=== PATIENT | female | born 1945 | race Caucasian/White ===

== ENCOUNTER 2025-01-23 03:29 | Inpatient (IN) | payer OTHER, SELFPAY ==
[2025-01-22 18:46] VITALS: BP 98/67
[2025-01-22 19:04] LABS: Hematocrit 43.0 % (37.0-47.0); Hemoglobin 14.6 g/dL (12.0-16.0); Mean Corp Hgb Conc. 34.0 g/dL (33.0-37.0); Mean Corpuscular Volume 88.5 fL (81.0-99.0); Nucleated Red Blood Cells % 0 %; Platelet Count 275 10^3/uL (130-400); Red Cell Dist. Width 12.6 % (11.5-14.5)
[2025-01-22 19:20] LABS: ALT (SGPT) 22 U/L (0-35); AST (SGOT) 30 U/L (14-36); Albumin 3.5 g/dl (3.5-5.0); Alkaline Phosphatase 85 U/L (38-126); Blood Urea Nitrogen 21 mg/dl (7-17); Calcium 8.6 mg/dl (8.4-10.2); Carbon Dioxide 22 mmol/L (22-30); Chloride 102 mmol/L (98-107); Glucose 134 mg/dl (70-99); Lipase 27 U/L (23-300); Potassium 3.8 mmol/L (3.5-5.1); Sodium 134 mmol/L (135-145); Total Protein 6.5 g/dl (6.3-8.2); eGFR > 60.00
[2025-01-22 21:11] VITALS: BP 104/77
--- NOTE | 2025-01-22 21:23 | ED.GENMED ---
History of Present Illness
General
Chief Complaint: Abdominal Pain
Source: patient and family
Time Seen by Provider: 01/22/25 21:13
History of Present Illness
History of Present Illness:
This patient is an 79-year-old female who states that she has not had a bowel movement in about a week. On Sunday she started to feel slightly nauseous and 'flulike' associated with fever and headache. Those flulike symptoms have since resolved
but the nausea continues. Yesterday she started to develop pain, gradual onset, across her lower abdomen described as 'gas pains'. This has gotten progressively worse which prompted her visit here. She now has nonbloody vomiting associated with
the nausea. There are no exacerbating relieving factors to the pain. She denies urinary symptoms, bleeding, headache, dizziness. She states she has intermittent central chest discomfort, mild in intensity, since yesterday and then returning again
today. She says she is unaware how long it lasts for at a time because she so distracted with the abdominal pain. She denies associated dyspnea, diaphoresis, neck pain, shoulder pain, upper back pain.
Past History
Past History
ED Past Medical History: Other (Reflux, thyroid, hypercholesterolemia)
ED Past Surgical History: None
Social History
Tobacco: Non-smoker
Alcohol: None
Drug: None
Personal:
Living: with family
Phy Exam
Physical Exam
Physical Exam:
GENERAL: Alert , appears uncomfortable
EYE: pupils equal and reactive
NECK: Supple, no significant adenopathy.
ENT: o/p clr, mm dry
CARDIAC: Regular rate and rhythm .
LUNGS: Clear breath sounds bilaterally, no acute respiratory distress, no wheezes/rales/rhonchi
ABDOMEN: Soft, without focal tenderness, no r/g, no cvat
NEUROLOGICAL: Alert and oriented, no focal neuro deficits
SKIN: Warm and dry, skin intact.
MUSCULOSKELETAL: No edema, well perfused.
PSYCH: Normal and appropriate interaction.
Course
Orders/Labs/Results
Orders:
Orders
01/22/25 18:57
CMP [Comprehensive Metabolic Panel] Urgent
Complete Blood Count/With Diff Urgent
Lipase Urgent
01/22/25 21:21
Electrocardiogram (*1) Urgent
Reason for Study: Chest Pain
EKG- Treatment ONCE
01/22/25 21:22
0.9% Sodium Chloride 1000 ml [Nss] 1,000 ml IV BOLUS
Morphine Sulfate 4 mg IV NOW STA
01/22/25 21:23
CT Abd/Pel (IV only)-[facility] only Urgent
Comment:
Reason For Exam: diffuse lower abd pain, constipation, n.v
01/22/25 21:28
Prochlorperazine [Compazine] 5 mg IV NOW STA
01/22/25 22:19
Pantoprazole 80 mg/100 ml Nss [Protonix] 80 mg in 100 ml IV NOW
Pantoprazole [Protonix IV] 80 mg IV NOW STA
01/22/25 22:20
Type+Screen Urgent
01/22/25 22:44
Morphine Sulfate 4 mg IV NOW STA
01/22/25 23:28
0.9% Sodium Chloride 1000 ml [Nss] 1,000 ml IV BOLUS
01/22/25 23:29
Ampicillin/Sulbactam 3 G [Unasyn] 3 gm 0.9% Sodium Chloride 100 ml [Nss] 100 ml IV NOW
01/22/25 23:42
D-Dimer Urgent
Lactic Acid Urgent
Urinalysis Reflex To Culture Urgent
Date Specimen was Collected: 01/22/25
Time Specimen was Collected: 19:02
Urine Microscopic Reflex Cult Urgent
Urine Culture Urgent
IFEOMA Source: U
Specimen Description:
Date Specimen was Collected: 01/22/25
Time Specimen was Collected: 19:02
01/23/25
Ct Cta A/P W/Wo Urgent
Reason For Exam: pain
01/23/25 00:39
Ampicillin/Sulbactam 3 G [Unasyn] 3 gm 0.9% Sodium Chloride 100 ml [Nss] 100 ml IV NOW
Abnormal Lab Results
01/22/25 01/22/25
18:57 23:42
WBC 16.6 H 10^3/uL
(4.8-10.8)
Abs Immat Gran (auto) 0.1 H 10^3/uL
(0-0.05)
Absolute Neuts (auto) 14.3 H 10^3/uL
(1.4-6.5)
Absolute Lymphs (auto) 0.8 L 10^3/uL
(1.2-3.4)
Absolute Monos (auto) 1.3 H 10^3/uL
(0.1-0.6)
Immature Gran % 0.8 H %
(0-0.5)
Neutrophils % 86.2 H %
(42.2-75.2)
Lymphocytes % 4.8 L %
(20.5-51.1)
D-Dimer 15.87 H ug/mlFEU
(0.00-0.50)
Sodium 134 L mmol/L
(135-145)
BUN 21 H mg/dl
(7-17)
Glucose 134 H mg/dl
(70-99)
Lactic Acid 2.8 H mmol/L
(0.7-2.0)
Total Bilirubin 2.4 H mg/dl
(0.2-1.3)
Urine Ketones 3+ A
(Negative)
Ur Occult Blood Reflex 1+ A
(Negative)
Leukocyte Esterase Rfl 2+ A
(Negative)
Urine WBC (Reflex) 16-20 A /HPF
(0-5)
Urine Yeast Few A
(Negative)
Urine Albumin (Reflex) 2+ A
(Neg - Trace)
01/22/25 18:57
01/22/25 18:57
Vital Signs
Initial and Last Documented VS:
Initial Vital Signs
Temp Pulse Resp BP Pulse Ox
98.3 F 76 20 98/67 98
01/22/25 18:46 01/22/25 18:46 01/22/25 18:46 01/22/25 18:46 01/22/25 18:46
Last Documented Vital Signs
Temp Pulse Resp BP Pulse Ox
98.3 F 96 18 117/75 93
01/22/25 18:46 01/23/25 00:45 01/23/25 00:45 01/23/25 00:00 01/23/25 00:30
*Pulse Oximetry
SaO2: 98
Oxygen Mode of Delivery: Room air
Patient hypoxic: no
*Critical Care Note
Total Time (30-74mins, 75-104mins- exclusive of procedures): 35
Update Note
Update Note:
Patient presents to the Emergency Department with __abdominal pain, nausea, vomiting, constipation
Number and Complexity of Problems Addressed at the Encounter
� Chronic conditions affecting care:
� Acute Exacerbation and/or Progression of Chronic Illness:
� Differential Diagnosis includes: But not limited to appendicitis, diverticulitis, bowel obstruction, gastroenteritis, kidney stone, etc. etc.
Amount and/or Complexity of Data to be Reviewed and Analyzed
� I performed an independent evaluation of and my interpretation is:
EKG:
CT:There is moderate to severe wall thickening involving proximal to mid jejunal small bowel loops in the left upper quadrant. There is also significant stranding of the mesentery adjacent to the small bowel loops with fluid
within the mesentery. There is a striking demarcation of decreased enhancement of jejunal loops at the junction with the fourth portion of the duodenum, seen on coronal images 25 through 28 of series 202.
In the distal jejunum and proximal to mid ileum, small bowel loops appear relatively normal with no significant wall thickening or adjacent edema. There is moderate to severe wall thickening with adjacent edema involving the distal ileum including
the terminal ileum, and this probably involves approximately the distal 25 cm of the ileum.
These findings would suggest two discontinuous regions of significant enteritis. Infectious enteritis could be one consideration. Another consideration would be ischemic enteritis. I cannot identify a focal area of arterial embolism or mesenteric
venous thrombosis within the main branches of the SMA or SMV. Relatively diminished enhancement of distal mesenteric veins supplying these loops of small bowel, and small vessel mesenteric venous thrombosis could be considered.
There is a small to moderate amount of free fluid within the pelvis, greater in the right anterior pelvis adjacent to the distal ileum.
There is no free intraperitoneal air.
There is also a moderate amount of free fluid adjacent to the liver in the right upper quadrant. Minimal amount of free fluid adjacent to the spleen in the left upper quadrant. There is a moderate hiatal hernia which extends into the left lower
hemithorax. There is moderate fluid surrounding this hiatal hernia, and the surrounding fluid is probably extending superiorly from the abdomen through the hiatal hernia defect. There is compressive atelectasis within the visualized left lower lobe
of the lung. No significant pleural effusion bilaterally. Mild dependent atelectasis within the right lower lung.
Additionally, within the central and right paramedian pelvis, there is a short segment of sigmoid colonic wall thickening with stranding of the adjacent fat, in the region of multiple diverticula. This is probably a short segment of sigmoid
diverticulitis, with no evidence for an adjacent abscess.
Multiple calcified gallstones are present. No CT evidence to suggest acute cholecystitis. No evidence of biliary ductal dilation.
1 cm cyst within the medial right lobe of the liver. 3 mm cyst within the inferolateral right lobe of the liver. The main portal vein is patent as well as its branches. The SMV and the splenic vein appear patent.
Spleen appears normal.
Both adrenal glands appear within normal limits.
No focal abnormality of the pancreas.
No significant abnormality of the kidneys. The visualized pelvicalyceal systems and ureters appear within normal limits.
The urinary bladder appears normal.
1 cm calcification off of the right lateral margin of the uterus, most likely a small calcified fibroid. No other abnormality of the uterus. The ovaries appear within normal limits.
Moderate vascular calcification with no aortic aneurysm. Mild to moderate narrowing at the origin of the celiac artery. Suggestion of moderate narrowing at the origin of the SMA.
Minimal levoconvex scoliosis centered at L4-5 with mild dextroconvex scoliosis centered at L1-2. Mild to moderate diffuse changes of degenerative disc disease with vacuum disc phenomenon at L3-4. No evidence for spondylolisthesis. Bilateral mid to
lower lumbar hypertrophic facet degenerative change. Mild degenerative change of both hip joints. Mild to moderate degenerative change of the symphysis pubis.
IMPRESSION: As described above, 2 discontinuous areas of enteritis involving the small bowel, with involvement of the proximal to mid jejunum in the left upper quadrant and involvement of the distal ileum in the right lower quadrant. There is
significant stranding and edema within the adjacent mesentery of these involve loops of bowel. Free fluid within the abdomen and pelvis. See above discussion.
No evidence of free intraperitoneal air.
Short segment of diverticulitis involving the sigmoid colon within the central and right paramedian pelvis. No evidence for associated abscess.
Moderate hiatal hernia with surrounding fluid in the left hemithorax, fluid likely extending superiorly through the hiatal hernia defect.
Cholelithiasis. No CT findings to suggest acute cholecystitis. No evidence of biliary ductal dilation.
Electronically signed by Cristofer Gamino MD, 01/22/2025 11:15 PM
Xrays:
Laboratory Studies: Leukocytosis, lactic acid elevation, mild prerenal azotemia. D-dimer elevation EXTR nonspecific
Other:
� Review of other/old records reveals:
� Clinical information was obtained by an independent historian: and daughter who provide additional history including her PMH
� Prescriptions/Medications Considered but not given:
� Further testing considered but not performed:
Risk of Complications and/or Morbidity or Mortality of Patient Management
� Social determinants of health affecting care:
� Discussion with other providers (PCP, Hospitalists, Consultants, etc): See below
� Escalation of care including admission/observation vs risk of discharge considered: On exam, although patient has abdominal pain, she does not describe tenderness with palpation, says it feels 'pressure' with palpation but not
discomfort necessarily. Fluids, pain meds, and testing ordered, will reassess shortly
11:27 PM patient much more comfortable, systolic blood pressure low 100s, no further vomiting. RN will draw lactic and D-dimer at this time. CT not definitive for ischemic etiology and patient does not have any identifiable risk factors but still
a possibility. Will begin antibiotics, IV fluid, and consideration for further testing
In regards to antibiotics, patient describes a penicillin allergy from 'a long long time ago' described as 'just a rash'. I am avoiding Levaquin given patient's prolonged QT. RN aware of need for close monitoring after administering,
Case discussed with radiology, questioning if a angiogram would be helpful. Case then discussed with general surgery, Dr. Weathers, and we proceeded with a CT angiogram. Results in summary Summary: 'mesenteric arteries grossly patent, cannot assess
venous patency. Mesenteric edema and stranding again seen, may be infectious/inflam or ischemic. Mod free fluid.' Reassessment, pt markedly improved, resting comfortably, no complnts. hr wnl. Will admit, npo, ivf, continue abx, close monioring.
Case d/w Dr Sanchez for admission.
ED Attending Note
-
Portions of this chart may have been created with voice recognition software.� Occasional wrong word or��sound alike� substitutions may have occurred due to the inherent limitations of voice recognition software.
Discharge Plan
Departure
Referrals:
Howard Peoples MD [Family Provider, Internal Medicine]
Interventions
Interventions:
*Risk Screen - Suicide Last Done: 01/22/25 18:46
*General Assessment Last Done: 01/22/25 18:46
*Neglect/Abuse Screening Last Done: 01/22/25 21:34
*ED- Fall Risk Assessment Last Done: 01/22/25 21:34
*ED COVID-19 Vaccine History Last Done: 01/22/25 18:46
*ED Influenza Vaccine History Last Done: 01/22/25 18:46
Discharge Date and Time
Print Language: IRISH
[2025-01-22] MEDS: MORPHINE SULFATE 4 MG IV ×2 (21:25→23:20)
[2025-01-22] MEDS: NSS 1000 IV (21:26)
[2025-01-22] MEDS: COMPAZINE 5 MG IV (21:43)
[2025-01-22 22:00] VITALS: BP 120/70
[2025-01-22 22:41] VITALS: BP 129/71
[2025-01-22 23:00] VITALS: BP 98/46
[2025-01-22] MEDS: PROTONIX IV 80 MG IV (23:19)
[2025-01-22] MEDS: PROTONIX 100 IV (23:19)
[2025-01-22 23:26] VITALS: BP 102/69
[2025-01-22 23:50] LABS: Urine Character Clear (Clear)
[2025-01-23] VITALS (7 sets, daily range): BP systolic 97–125; BP diastolic 63–75; PULSE 88–125; BMI 29.6
[2025-01-23 00:16] LABS: D-Dimer 15.87 ug/mlFEU (0.00-0.50)
[2025-01-23 00:28] LABS: Urine Squamous Cell 16-20 /LPF (Few)
[2025-01-23 00:30] LABS: Urine Red Blood Cell 0-2 /HPF (0-2); Urine White Cell 16-20 /HPF (0-5)
[2025-01-23] MEDS: UNASYN IV (00:47)
[2025-01-23] MEDS: NSS 1000 IV (00:51)
--- NOTE | 2025-01-23 02:04 | ED.GENMED ---
History of Present Illness
General
Chief Complaint: Abdominal Pain
Time Seen by Provider: 01/22/25 21:13
Past History
Past History
ED Past Medical History: Other (Reflux, thyroid, hypercholesterolemia)
ED Past Surgical History: None
Social History
Tobacco: Non-smoker
Alcohol: None
Drug: None
Personal:
Living: with family
Course
Orders/Labs/Results
Orders:
Orders
01/22/25 18:57
CMP [Comprehensive Metabolic Panel] Urgent
Complete Blood Count/With Diff Urgent
Lipase Urgent
01/22/25 21:21
Electrocardiogram (*1) Urgent
Reason for Study: Chest Pain
EKG- Treatment ONCE
01/22/25 21:22
0.9% Sodium Chloride 1000 ml [Nss] 1,000 ml IV BOLUS
Morphine Sulfate 4 mg IV NOW STA
01/22/25 21:23
CT Abd/Pel (IV only)-[facility] only Urgent
Comment:
Reason For Exam: diffuse lower abd pain, constipation, n.v
01/22/25 21:28
Prochlorperazine [Compazine] 5 mg IV NOW STA
01/22/25 22:19
Pantoprazole 80 mg/100 ml Nss [Protonix] 80 mg in 100 ml IV NOW
Pantoprazole [Protonix IV] 80 mg IV NOW STA
01/22/25 22:20
Type+Screen Urgent
01/22/25 22:44
Morphine Sulfate 4 mg IV NOW STA
01/22/25 23:28
0.9% Sodium Chloride 1000 ml [Nss] 1,000 ml IV BOLUS
01/22/25 23:29
Ampicillin/Sulbactam 3 G [Unasyn] 3 gm 0.9% Sodium Chloride 100 ml [Nss] 100 ml IV NOW
01/22/25 23:42
D-Dimer Urgent
Lactic Acid Urgent
Urinalysis Reflex To Culture Urgent
Date Specimen was Collected: 01/22/25
Time Specimen was Collected: 19:02
Urine Microscopic Reflex Cult Urgent
Urine Culture Urgent
IFEOMA Source: U
Specimen Description:
Date Specimen was Collected: 01/22/25
Time Specimen was Collected: 19:02
01/23/25
Ct Cta A/P W/Wo Urgent
Reason For Exam: pain
01/23/25 00:39
Ampicillin/Sulbactam 3 G [Unasyn] 3 gm 0.9% Sodium Chloride 100 ml [Nss] 100 ml IV NOW
Abnormal Lab Results
01/22/25 01/22/25
18:57 23:42
WBC 16.6 H 10^3/uL
(4.8-10.8)
Abs Immat Gran (auto) 0.1 H 10^3/uL
(0-0.05)
Absolute Neuts (auto) 14.3 H 10^3/uL
(1.4-6.5)
Absolute Lymphs (auto) 0.8 L 10^3/uL
(1.2-3.4)
Absolute Monos (auto) 1.3 H 10^3/uL
(0.1-0.6)
Immature Gran % 0.8 H %
(0-0.5)
Neutrophils % 86.2 H %
(42.2-75.2)
Lymphocytes % 4.8 L %
(20.5-51.1)
D-Dimer 15.87 H ug/mlFEU
(0.00-0.50)
Sodium 134 L mmol/L
(135-145)
BUN 21 H mg/dl
(7-17)
Glucose 134 H mg/dl
(70-99)
Lactic Acid 2.8 H mmol/L
(0.7-2.0)
Total Bilirubin 2.4 H mg/dl
(0.2-1.3)
Urine Ketones 3+ A
(Negative)
Ur Occult Blood Reflex 1+ A
(Negative)
Leukocyte Esterase Rfl 2+ A
(Negative)
Urine WBC (Reflex) 16-20 A /HPF
(0-5)
Urine Yeast Few A
(Negative)
Urine Albumin (Reflex) 2+ A
(Neg - Trace)
01/22/25 18:57
01/22/25 18:57
Vital Signs
Initial and Last Documented VS:
Initial Vital Signs
Temp Pulse Resp BP Pulse Ox
98.3 F 76 20 98/67 98
01/22/25 18:46 01/22/25 18:46 01/22/25 18:46 01/22/25 18:46 01/22/25 18:46
Last Documented Vital Signs
Temp Pulse Resp BP Pulse Ox
98.3 F 96 18 117/75 93
01/22/25 18:46 01/23/25 00:45 01/23/25 00:45 01/23/25 00:00 01/23/25 00:30
*Pulse Oximetry
SaO2: 93
Oxygen Mode of Delivery: Room air
ED Attending Note
-
Portions of this chart may have been created with voice recognition software.� Occasional wrong word or��sound alike� substitutions may have occurred due to the inherent limitations of voice recognition software.
Discharge Plan
Departure
Patient Disposition: Admit
Date of Disposition: 01/23/25
Time of Disposition: 02:04
Presentation/result/management discussed w/ accepting MD/DO: Hospitalist
Condition: Fair
Discharge Problem:
Vomiting
Referrals:
Howard Peoples MD [Family Provider, Internal Medicine]
Interventions
Interventions:
*Risk Screen - Suicide Last Done: 01/22/25 18:46
*General Assessment Last Done: 01/22/25 18:46
*Neglect/Abuse Screening Last Done: 01/22/25 21:34
*ED- Fall Risk Assessment Last Done: 01/22/25 21:34
*ED COVID-19 Vaccine History Last Done: 01/22/25 18:46
*ED Influenza Vaccine History Last Done: 01/22/25 18:46
Discharge Date and Time
Print Language: ITALIAN
--- NOTE | 2025-01-23 02:20 | HPS.HSE ---
Family Physician
-
Family Physician: Howard Peoples
Chief Complaint
-
Abdominal pain and vomiting
History of Present Illness
This 79-year-old female with past medical history significant for hyperlipidemia, history of CAD and dysphagia status post EGD in the past, hypothyroid who presents to the emergency department with abdominal pain and ventral vomiting.
Patient reports that this abdominal pain started about 2 days ago and is localized to the bilateral lower quadrant. She said prior to onset she had constipation for about a week. She reports history of intermittent constipation which sometimes she
takes laxatives for. She said the constipation is of moderate abdominal pain. She has had prior colonoscopies which showed polyps but no other findings. She denies any intra-abdominal surgeries.
Patient reported that the pain persisted over the last 2 days with ongoing constipation and some nausea. She reported that she had shaking chills about 1 day ago. She also reported her spouse had diarrhea and abdominal pain 2 days ago.
Today patient reported that she had episode of vomiting up to 3 times. 2 at home and 1 in the emergency department. She said she vomited 'Pepsi colored' material. It was reported to be black in the emergency department but I did not visualize
directly. Patient stated when she vomited it appeared some red-colored streaks on the container. She denies any prior history of GI bleeds. She denies history of peptic ulcer she states she is compliant with her pantoprazole.
Patient had an episode of diarrhea while in the emergency department which is the first BM she has had in several days.
Initial vital signs where variable with low as 80 systolic, pulse was in the 90s. She was afebrile here and was satting 92%. ECG showed sinus rhythm with no acute ST or T wave changes with a QTc of 490. WBC was 16.6 with normal hemoglobin and
platelets. Electrolytes BUN and creatinine were normal. She did have elevated lactic acid to 2.8. LFTs lipase were normal. UA was likely contaminated blood positive. D-dimer was elevated at 15.
CT of the abdomen pelvis was performed with CT angio., There was no large vessel occlusion on the angiogram. No evidence of bowel ischemia. She does have 2 discontinuous areas of enteritis involving the small bowel, with involvement of the
proximal to mid jejunum in the left upper quadrant and involvement of the distal ileum in the right lower quadrant. There is significant stranding and edema within the adjacent mesentery of these involve loops of bowel. Free fluid within the abdomen
and pelvis. See above discussion.
No evidence of free intraperitoneal air.
Short segment of diverticulitis involving the sigmoid colon within the central and right paramedian pelvis. No evidence for associated abscess.
Medical History
Past Medical History
Past Medical History: Reports GERD, Hypercholesterolemia and Hypothyroidism
Past Surgical History: Reports None
Social History
Tobacco: Former Smoker
Alcohol: None
Drug: None
Personal:
Living: With Family
Family History
Family History: Not pertinent
Allergies / Home Medications
Allergies reflects when Allergies were last updated in [facility].
Home Medications with original date entered in [facility]
Allergy/Medication List:
Allergies
Allergy/AdvReac Type Severity Reaction Status Date / Time
Penicillins Allergy Unknown Verified 01/22/25 18:50
Home Medications
atorvastatin 20 mg tablet 20 mg PO HS 01/23/25
levothyroxine 75 mcg tablet (Synthroid) 75 mcg PO DAILY 01/23/25
pantoprazole 40 mg tablet,delayed release 40 mg PO DAILY 01/23/25
Review of Systems
-
Constitutional: Reports No Symptoms
EENT: Reports No Symptoms
Respiratory: Reports No Symptoms
Cardiac: Reports No Symptoms
Abdomen/GI: Reports Abdominal Pain, Nausea, Vomiting and Diarrhea; Denies Black Stools
: Reports No Symptoms
Musculoskeletal: Reports No Symptoms
Skin: Reports No Symptoms
Neurological: Reports No Symptoms
Endocrine: Reports No Symptoms
Hematologic/Lymphatic: Reports No Symptoms
Psych: Reports No Symptoms
Physical Exam
Vital Signs
Vital Signs
Temp Pulse Resp BP Pulse Ox
98.3 F 93 18 117/75 93
01/22/25 18:46 01/23/25 02:00 01/23/25 02:00 01/23/25 00:00 01/23/25 02:04
Physical Exam
General: Well Developed, Well Nourished and No Apparent Distress
HEENT: NormoCephalic, Moist mucous membranes and Atraumatic
Respiratory: Clear
Cardiac: S1/S2 and Regular Rhythm; No Murmur or Rub
GI: Soft, Non Tender, Non Distended and Normal Bowel Sounds; No Organomegaly
Rectal: Deferred by Provider
Musculoskeletal: No Clubbing, No Cyanosis and No Edema
Skin: No Rash
Neuro: AO x 3 and Nonfocal/grossly intact
Laboratory Results
-
01/22/25 18:57
01/22/25 18:57
Laboratory Results
Lactic Acid 2.8 mmol/L (0.7-2.0) H 01/22/25 23:42
Total Bilirubin 2.4 mg/dl (0.2-1.3) H 01/22/25 18:57
AST 30 U/L (14-36) 01/22/25 18:57
ALT 22 U/L (0-35) 01/22/25 18:57
Alkaline Phosphatase 85 U/L (38-126) 01/22/25 18:57
Lipase 27 U/L (23-300) 01/22/25 18:57
Data Reviewed
-
CT Scan: Report Reviewed by me
Medical Tests (Nuc Med, Echo, EKG etc): Image Personally Visualized and interpreted
Lab Data: Labs Reviewed by me
Old Records: Reviewed
Impression/Plan
-
IMPRESSION:
79-year-old with past medical history of GERD and prior history of dysphagia who presents to the emergency department with worsening abdominal pain and vomiting. She appeared to have had a bloody emesis on arrival in the emergency department. She
is currently hemodynamically stable with stable CBC. She has leukocytosis and evidence of enteritis and now with colitis on CT scan. No evidence of ischemic bowel.
PLAN:
GI bleed -bloody emesis, history of GERD on PPI at home. Initially borderline hypotensive on arrival responded to IV fluids. Hemoglobin is stable at 14.6. No history of melena at home. Denies NSAID use.
- Admit to telemetry
- N.p.o. for now except sips and ice chips
- Continue with PPI gtt
- Pain control antiemetics
- Type and screen in a.m.
- GI consultation
Diverticulitis -finding of sigmoid diverticulitis without perforation or abscess. Abdominal pain nausea vomiting leukocytosis and subjective chills is consistent with findings of this colitis.
- Given IV Unasyn in ED, given history of penicillin allergy will continue with ceftriaxone and Flagyl for now
- N.p.o. as above
- Pain control, IV fluids
- GI consult
Enteritis -episode of diarrhea in the ED. Jejunal distal enteritis. Spouse with similar symptoms. Unlikely patient to have 3 GI issues but cannot be ruled out. No prior history of IBD
- Stool culture
- IV fluids for now
- Check ESR and fecal calprotectin
U/A - denies urinary symptoms, u/a + but likely contaminated
- urine cultures sent
- on ceftriaxone for diverticulitis
DVT prophylaxis�SCDs
CODE STATUS�full code
[2025-01-23] MEDS: COMPAZINE 5 MG IV ×2 (03:55→11:51)
[2025-01-23 04:20] LABS: Hematocrit 39.8 % (37.0-47.0); Hemoglobin 13.5 g/dL (12.0-16.0); Mean Corp Hgb Conc. 33.9 g/dL (33.0-37.0); Mean Corpuscular Volume 89.4 fL (81.0-99.0); Platelet Count 242 10^3/uL (130-400); Red Cell Dist. Width 12.6 % (11.5-14.5)
[2025-01-23] MEDS: D5/0.9% SODIUM CHLORIDE 1000 IV ×2 (04:21→20:28)
[2025-01-23 04:43] LABS: Blood Urea Nitrogen 20 mg/dl (7-17); Calcium 7.4 mg/dl (8.4-10.2); Carbon Dioxide 19 mmol/L (22-30); Chloride 108 mmol/L (98-107); Estimated Creatinine Clearance 51 ml/min; Glucose 152 mg/dl (70-99); Potassium 4.3 mmol/L (3.5-5.1); Sodium 134 mmol/L (135-145); eGFR > 60.00
[2025-01-23] MEDS: STERILE WATER FOR INJECTION 20 ML IV (05:23)
[2025-01-23] MEDS: SYNTHROID 75 MCG PO (05:24)
[2025-01-23] MEDS: FLAGYL 500 MG 100 IV ×3 (05:24→22:32)
[2025-01-23] MEDS: ROCEPHIN 2000 MG IV (05:24)
[2025-01-23 05:41] LABS: Hepatitis C Antibody Negative (Negative)
--- NOTE | 2025-01-23 08:23 | CON.GI ---
Addendum entered and electronically signed by Derek Lane MD 01/23/25 12:15:
I saw and examined the patient.
The ROD DRAWER's note was reviewed and I agree with the note.
79-year-old female with past medical history of hyperlipidemia, hypothyroidism, GERD, chronic constipation and osteoporosis presents to the emergency room with 2-day history of nausea followed by fever, abdominal pain then dark material bringing her
to the emergency room. Asked to evaluate for the same. Started initially with nausea followed by fever at home. Proceeded to have abdominal cramping passing hard ball-like stools and eventually diarrhea. Vomited 'dark-colored material'. On
presentation WBC 16.6 currently 18.8, lactic acid was 2.8 currently 1.8, D-dimer 15.87, hemoglobin stable currently 13.5 down from 14.6. BUN 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
the celiac artery and SMA though mesenteric arteries grossly patent. Persistent bowel wall thickening moderate to advanced bowel wall thickening involving the proximal to mid jejunum in the left abdomen. Though there is also mild wall thickening
involving the mid to distal ileum. There may also be mild long segment wall thickening involving the transverse colon through the sigmoid colon though this wall thickness may be accentuated by underdistention. There is also mesenteric soft tissue
stranding/edema as well as ascites. Patient with mild diffuse tenderness of the abdomen. Significant nausea. Has not passed flatus and has only had 1 bowel movement since arrival. Remains afebrile. Continues on ceftriaxone and Flagyl. Has been
placed on a pantoprazole drip. She is also NPO.
impression
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
plan
Case discussed with hospitalist/general surgery. Possible etiology infectious versus inflammatory. Less likely ischemic with negative CTA. 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
N.p.o.
If continues to have vomiting NG tube
IV hydration
continue IV antibiotics started by medical team
Antiemetics as needed
Continue PPI
If diarrhea would recommend stool testing for infection
Continue follow-up with surgery recommendation
Original Note:
Consultation
-
Date/Time Consultation Requested: 01/23/25 0336
Date/Time Consultation Performed: 01/23/25 0800
Requesting Provider: Dr. Castillo
Performing Provider: Dr. Lane/VANCE Guillaume
Reason for Consultation: hematemesis, enteritis, diverticultis
Medical History
Chief Complaint / HPI
Chief Complaint: n/v/abd pain
History of Present Illness:
79-year-old female with past medical history of hyperlipidemia, hypothyroidism, GERD, chronic constipation and osteoporosis presents to the emergency room with 2-day history of nausea followed by fever, abdominal pain then dark material bringing her
to the emergency room. Asked to evaluate for the same. The patient states that she has a history of chronic constipation having a bowel movement once every 10 days. She utilizes Dulcolax 1 tablet if she does not produce a bowel movement. She
states this has been ongoing for approximately 8 years. She usually has hard ball-like stools. She does state that on Sunday her had nausea and vomiting associated with abdominal cramping. She states that on Sunday she had nausea only.
She states that on Sunday she developed a fever greater than 100. She states that she was not feeling well and felt achy as if she had a virus. She had not had a bowel movement in 7 days therefore she took a Dulcolax. She states on
she had abdominal cramping worse than she ever had in the past. She started passing hard balls of stool. This was followed by significant nausea and vomiting that was 'Pepsi colored' x 2 episodes. She had severe abdominal pain and presented here
for further evaluation. She states she started passing diarrhea that was dark to black. Specimen has not been able to be obtained. This was only 1 episode. Her abdominal pain has lessened. She states she has not passed any flatus. She states
that her nausea is worse now. She has had increasing heartburn. She continues on a pantoprazole drip. She takes pantoprazole 40 mg at home daily. She uses Advil 400 mg 2 times a week. Her last colonoscopy was [address] Mccarthy
where she had polyps. She denies any current fevers or chills. She has not had any vomiting today. She currently feels nauseous. She denies any dysphagia or odynophagia. She states her appetite has been less over the past couple years however
denies any weight loss. She denies any family history of gastrointestinal malignancy or IBD. She does not smoke. She does not drink any alcohol. Only medications are atorvastatin, Synthroid, pantoprazole and Prolia as well as the mentioned Advil.
Past Medical History
Past Medical History: Other (Hypothyroidism, hyperlipidemia, GERD, chronic constipation)
Past Surgical History: Other (Cataracts)
Social History
Tobacco: Non-Smoker
Alcohol: None
Drug: None
Personal:
Living: With Family
Family History
Family History: Other (No family history of gastrointestinal malignancy or IBD)
Allergies / Home Medications
Allergy/AdvReac Type Severity Reaction Status Date / Time
Penicillins Allergy Unknown Verified 01/22/25 18:50
�Medication �Instructions �Recorded
atorvastatin 20 mg tablet 20 mg PO HS 01/23/25
levothyroxine 75 mcg tablet 75 mcg PO DAILY 01/23/25
(Synthroid)
pantoprazole 40 mg tablet,delayed 40 mg PO DAILY 01/23/25
release
Review of Systems
-
All other systems: A 12 pt ROS was Negative except as stated above in HPI
Vital Signs
Temp Pulse Resp BP Pulse Ox
97.1 F 97 12 107/68 94
01/23/25 07:00 01/23/25 07:00 01/23/25 07:00 01/23/25 07:00 01/23/25 07:00
Physical Exam
Exam
General: No Apparent Distress
HEENT: Anicteric
Respiratory: Clear (Anterior)
Cardiac: Regular Rhythm
GI: Soft, Normal Bowel Sounds (Normal activity however higher pitched), Tender (Mild diffuse tenderness) and Distended
Skin: Warm and Dry
Neuro: AO x 3
Psych: Calm
Results
WBC 18.8 10^3/uL (4.8-10.8) H 01/23/25 04:06
Hgb 13.5 g/dL (12.0-16.0) 01/23/25 04:06
Hct 39.8 % (37.0-47.0) 01/23/25 04:06
MCV 89.4 fL (81.0-99.0) 01/23/25 04:06
Plt Count 242 10^3/uL (130-400) 01/23/25 04:06
Absolute Neuts (auto) 14.3 10^3/uL (1.4-6.5) H 01/22/25 18:57
Sodium 134 mmol/L (135-145) L 01/23/25 04:06
Potassium 4.3 mmol/L (3.5-5.1) 01/23/25 04:06
Chloride 108 mmol/L (98-107) H 01/23/25 04:06
Carbon Dioxide 19 mmol/L (22-30) L 01/23/25 04:06
BUN 20 mg/dl (7-17) H 01/23/25 04:06
Creatinine 0.8 mg/dL (0.6-1.0) 01/23/25 04:06
Calcium 7.4 mg/dl (8.4-10.2) L 01/23/25 04:06
Total Bilirubin 2.4 mg/dl (0.2-1.3) H 01/22/25 18:57
AST 30 U/L (14-36) 01/22/25 18:57
ALT 22 U/L (0-35) 01/22/25 18:57
Alkaline Phosphatase 85 U/L (38-126) 01/22/25 18:57
Lipase 27 U/L (23-300) 01/22/25 18:57
Hepatitis C Antibody Negative (Negative) 01/23/25 04:06
Diagnostic Image Results:
CT abdomen and pelvis IV contrast only (initial CAT scan):
IMPRESSION: As described above, 2 discontinuous areas of enteritis involving the small bowel, with involvement of the proximal to mid jejunum in the left upper quadrant and involvement of the distal ileum in the right lower quadrant. There is
significant stranding and edema within the adjacent mesentery of these involve loops of bowel. Free fluid within the abdomen and pelvis. See above discussion.
No evidence of free intraperitoneal air.
Short segment of diverticulitis involving the sigmoid colon within the central and right paramedian pelvis. No evidence for associated abscess.
Moderate hiatal hernia with surrounding fluid in the left hemithorax, fluid likely extending superiorly through the hiatal hernia defect.
Cholelithiasis. No CT findings to suggest acute cholecystitis. No evidence of biliary ductal dilation.
CT abdomen and pelvis angio with and without IV contrast:
IMPRESSION:
No aortic aneurysm or dissection.
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
No venous phase provided, therefore, cannot assess for venous patency.
Persistent bowel wall thickening. Moderate to advanced bowel thickening involving the proximal to mid jejunum in the left abdomen, though there is also mild wall thickening involving mid to distal ileum. There may also be mild long segment wall
thickening involving the transverse colon through sigmoid colon, though wall thickness may be accentuated by underdistention. There is also mesenteric soft tissue stranding/edema as well as ascites. Exact etiology uncertain. Possibly infectious or
inflammatory. Ischemic etiology may also be considered.
The remainder the examination is stable with findings as described.
The examination was performed after-hours on an emergency basis, with initial preliminary interpretation provided by [facility].
Prior GI Procedures:
EGD: 01/08/2014 (Dr. Mccarthy) - Normal examined duodenum.
- LA Grade B reflux esophagitis.
- Hiatus hernia.
- The examination was otherwise normal
Colonoscopy: Per patient she states she had this approximately [address] Russell. States she had 'polyps'.
Assessment / Plan
-
79-year-old female with past medical history of hyperlipidemia, hypothyroidism, GERD, chronic constipation and osteoporosis presents to the emergency room with 2-day history of nausea followed by fever, abdominal pain then dark material bringing her
to the emergency room. Asked to evaluate for the same. Started initially with nausea followed by fever at home. Proceeded to have abdominal cramping passing hard ball-like stools and eventually diarrhea. Vomited 'dark-colored material'. On
presentation WBC 16.6 currently 18.8, lactic acid was 2.8 currently 1.8, D-dimer 15.87, hemoglobin stable currently 13.5 down from 14.6. BUN 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
the celiac artery and SMA though mesenteric arteries grossly patent. Persistent bowel wall thickening moderate to advanced bowel wall thickening involving the proximal to mid jejunum in the left abdomen. Though there is also mild wall thickening
involving the mid to distal ileum. There may also be mild long segment wall thickening involving the transverse colon through the sigmoid colon though this wall thickness may be accentuated by underdistention. There is also mesenteric soft tissue
stranding/edema as well as ascites. Patient with mild diffuse tenderness of the abdomen. Significant nausea. Has not passed flatus and has only had 1 bowel movement since arrival. Remains afebrile. Continues on ceftriaxone and Flagyl. Has been
placed on a pantoprazole drip. She is also NPO.
Impression:
Nausea/vomiting
Hematemesis
Enteritis
Colitis
---constellation of sx potentially infectious enteritis given the fact that her had N/V on Sunday. She has hx of chronic constipation and used Dulcolax as well. However there is concern for ischemia given elevated WBC and d diner as well as
CT findings.
Plan:
-NPO
-IVF
-Continue Protonix gtt
-Continue Ceftriaxone and Flagyl
-Trend labs
-Fractionate bilirubin
-Surgical consultation, tiger text sent
-Stool studies when BM produced
-Discussed with RN to notify with any changes
-Further recommendations to be forthcoming.
-
-
Thank you for consultation and allowing me to participate in the patient's care. Please call the [facility] physician during the after hours with any questions or concerns.
[2025-01-23] MEDS: PROTONIX 100 IV (08:50)
[2025-01-23] MEDS: MORPHINE SULFATE 2 MG IV ×2 (08:56→23:19)
--- NOTE | 2025-01-23 09:19 | CON.GS ---
Addendum entered and electronically signed by Michael Eddy MD 01/23/25 10:08:
Patient seen and examined.
Patient is a 79 yo F with a PMH of GERD, HLD, hypothyroidism, and chronic constipation who presents with 4 days of abdominal discomfort, nausea, vomiting. Ms. Allen states that on Sunday (01/20) she developed nausea which progressed to episodes of
vomiting on Sunday. Associated fevers and chills. On Sunday into she developed abdominal pain. Pain is reported to be more localized to the central pelvis. She denies any sick contacts, however, prior documentation indicates a
who has been sick at home. She denies any unusual foods. She has chronic GI issues both from an upper and lower standpoint. She has had prior endoscopies with reported dilations. She reports a chronic history of GERD and is on a PPI.
Some reports of darker emesis with some streaking of blood. Following the onset of her abdominal discomfort she was taking some NSAIDs. No chronic aspirin, steroids, or smoking history. She also has had longstanding history of constipation. Her
last bowel movement was over a week ago. No history of bloody bowel movements. No recent flatus. She states that this is not unusual for her. She occasionally takes a Dulcolax with little to no improvement. She has had prior colonoscopies (last
5 years ago) with polyp removal. She denies any prior episodes of diverticulitis. Much of her prior medical care has been at [facility].
Gen: NAD
Abd: soft, tender diffusely though primarily in suprapubic location, distended/obese, no tympany, no rebound or guarding
Labs and CT scan imaging were reviewed.
Patient has an 79 yo F p/w abdominal pain
Differential remains broad, however, in reviewing her CT scan imaging as well as her discomfort primarily localized to the suprapubic region leading diagnosis at this point in time would be uncomplicated diverticulitis. No evidence of perforation
or abscess formation. Likely reactive edema and mesenteric stranding of the adjacent small bowel. Differential also includes primary small bowel enteritis (ischemic, inflammatory, infectious). Less likely ischemia given no significant
cardiovascular risk factors, patent vasculature on CTA, and lack of bloody BMs. Unlikely to be inflammatory. Possibly infectious given reported history of sick at home. Her epigastric and upper abdominal discomfort, as well as her chronic
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 This issue should not be causing the lower small bowel and colonic findings. She does not have a primary complaint of epigastric or chest discomfort. No evidence of pneumatosis or free air.
No indication for surgical intervention at this time. Recommend medical management with bowel rest and antibiotics. Recommend NGT decompression if further episodes of nausea or emesis. All questions answered.
-- No plans for surgery at this time, may need repeat imaging with PO contrast if worsens
-- NPO, IVF, NGT if nausea or emesis
-- Abx: Ceftriaxone and Flagyl
-- IV PPI
-- GI consult noted
Original Note:
Consultation
-
Date/Time Consultation Performed: 01/23/25 9869
Medical History
-
Chief Complaint: abdomianl pain
History of Present Illness:
Ms Allen is an 79 yo female with a h/o hld, hypothyroid and chronic constipation who previously followed with [facility] and reports several EGD's in the past for dilations of her ?esophagus for dysphagia as well as prior routine
colonoscopies with noted polyps/diverticula with her last scopes being just prior to the pandemic (>5years ago). She notes that she often goes quite a long period of time between BM's and takes dulcolax prn which is often ineffective. Her last BM
was over a week ago and she has noted gradually increasing bloating. On Sunday morning she awake with nausea but then it improved throughout the day. On Sunday she developed worsening nausea and pain and notes that she remained in bed for the
majority of the day. Yesterday, , she began vomiting emesis that looked like 'pepsi' to her and presented to the hospital for evalation. She does not feel she has been passing much gas. Over the past few days she has taken 400mg of ibuprofen
[id number] without much relief of pain. She continues with abdominal pain which she reports is mostly in the lower abdomen with a pinpoint area of pain in the epigastrium. She reports the nausea has persisted but pain is a little better since
presentation. Abdomen is distended with pain predominantly to the BLLQ on exam although with mild upper abdominal tenderness.
Past Medical History
Past Medical History: GERD, Hypercholesterolemia, Hypothyroidism and Other (chronic constipation, prior EGDs for dilation of esophagus (last one approx 5 years ago at [facility]))
Past Surgical History: Other (Last colonoscopy approx 5 years ago or more with diverticula and polyps noted)
Social History
Tobacco: Former Smoker
Alcohol: None
Family History
Family History: Reviewed & Not Pertinent
Allergies / Home Medications
Allergy/AdvReac Type Severity Reaction Status Date / Time
Penicillins Allergy Unknown Verified 01/22/25 18:50
�Medication �Instructions �Recorded �Confirmed �Type
atorvastatin 20 mg tablet 20 mg PO HS 01/23/25 01/23/25 History
levothyroxine 75 mcg tablet 75 mcg PO DAILY 01/23/25 01/23/25 History
(Synthroid)
pantoprazole 40 mg tablet,delayed 40 mg PO DAILY 01/23/25 01/23/25 History
release
Review of Systems
-
History Source: Patient and Family
A 10 point review of systems was completed, and was negative except as per HPI.
Physical Exam
Vital Signs
Temp Pulse Resp BP Pulse Ox
97.1 F 97 12 107/68 94
01/23/25 07:00 01/23/25 07:00 01/23/25 07:00 01/23/25 07:00 01/23/25 07:00
01/22/25 01/23/25 01/24/25
06:59 06:59 06:59
Actual Weight 71.016 kg
Body Mass Index (BMI) 29.6
Lab Results
01/23/25 04:06
WBC 18.8 10^3/uL (4.8-10.8) H 01/23/25 04:06
Hgb 13.5 g/dL (12.0-16.0) 01/23/25 04:06
Hct 39.8 % (37.0-47.0) 01/23/25 04:06
Plt Count 242 10^3/uL (130-400) 01/23/25 04:06
Abs Immat Gran (auto) 0.1 10^3/uL (0-0.05) H 01/22/25 18:57
Neutrophils % 86.2 % (42.2-75.2) H 01/22/25 18:57
Physical Exam
General: Well Developed; Negative Comfortable
HEENT: Normocephalic and Moist Mucous Membranes
Respiratory: Non Labored Respirations
GI: Soft, Tender (generalized but most severe to the BLLQ) and Distended
Skin: Warm and Dry
Neuro: Awake, Alert and AO x 3
Psych: Calm
Data Reviewed
-
CT Scan: Image Personally Visualized and interpreted, Report Reviewed by me, Discussed with Nurse and Discussed with Patient
Labs: Labs Reviewed by me, Discussed with Physician and Discussed with Patient
Old Records: Reviewed
Assessment / Plan
-
79 yo female h/o hld, hypothyroid and chronic constipation who previously followed with [facility] and reports several EGD's in the past for dilations of her ?esophagus for dysphagia as well as prior routine colonoscopies with noted
polyps/diverticula with her last scopes being just prior to the pandemic (>5years ago). Presenting with 3 days of nausea with 2 days of worsening abdominal pain and onset of vomiting yesterday with dark emesis. Last BM 7-10 days ago. ABD distended
with tenderness predominantly to the lower abdomen/suprapubic region. CT imaging reviewed with sigmoid thickening/stranding consistent with sigmoid diverticulitis without abscess, there is also some small bowel thickening which may be reactive to
diverticulitis vs infectious/inflammatory in etiology. D-dimer elevated on presentation to 15.8. CTA in follow up with grossly patent vessels/arterial blood flow. Leukocytosis present with WBC of 18.8. Lactic acid of 2.8 on presentation which
trended down to normal (1.8). s/p IVF. Afebrile with stable vital signs.
Plan:
Continue NPO for bowel rest
Continue ABX with ceftriaxone/flagyl which will provide coverage for diverticulitis
Analgesics/Antiemetics as needed
GI following with us
No plans for emergent surgery currently, will continue to follow for improvement
--- NOTE | 2025-01-23 10:20 | W.PN.HOSP.TC ---
Today's Communication/Plan
-
see outlined plan below
Assessment / Plan
Assessment / Plan
Assessment:
Acute GI bleed (hematemesis)
- suspect reactive to lower GI issues causing vomiting/nausea
- monitor Hb
- continue PPI drip
- anti-emetics
- NPO/Ice chips/sips for now
- may need NG tube
- GI consulted
Severe sepsis POA (lactic acidosis, tachycardia, leukocytosis)
Acute diverticulitis, sigmoid, uncomplicated
Enteritis, patch, suspect reactive vs less likely primary enteritis
- CT: 2 discontinuous areas of enteritis involving the small bowel, with involvement of the proximal to mid jejunum in the left upper quadrant and involvement of the distal ileum in the right lower quadrant. There is significant stranding and edema
within the adjacent mesentery of these involve loops of bowel. Free fluid within the abdomen and pelvis. See above discussion. No evidence of free intraperitoneal air. Short segment of diverticulitis involving the sigmoid colon within the central
and right paramedian pelvis. No evidence for associated abscess.
- CTA without acute ischemia
- Continue IVF/NPO
- continue Rocephin/Flagyl, day 1
- stool studies
- GI and GS following
Abnormal UA
- follow culture for possible UTI; on Rocephin already
Hypothyroidism - on replacement
HLD - hold statin
DVT ppx: SCDs
Code: Full
Anticipated Discharge: > 48 hours
Subjective/Interval History
-
Date of Service: January 23, 2025
reports lower abd pain
no nausea at present
no fever/chills
Objective Data
-
Labs:
Laboratory Results
01/23/25 01/23/25
04:06 14:00
WBC 18.8 H
Hgb 13.5 Pending
Hct 39.8 Pending
Plt Count 242
Sodium 134 L
Potassium 4.3
Chloride 108 H
Carbon Dioxide 19 L
BUN 20 H
Creatinine 0.8
Glucose 152 H
Calcium 7.4 L
Vital Signs:
Vital Signs
Temp Pulse Resp BP Pulse Ox
97.1 F 97 12 107/68 94
01/23/25 07:00 01/23/25 07:00 01/23/25 07:00 01/23/25 07:00 01/23/25 07:00
I&O
01/22/25 01/23/25 01/24/25
06:59 06:59 06:59
Intake Total 350 / 350
Balance 350 / 350
Physical Exam
-
General: No Apparent Distress
HEENT: Normocephalic and Atraumatic
Respiratory: Negative Wheezes
Cardiac: Regular Rhythm and S1/S2
GI: Tender (diffusely) and Distended
Genito-urinary: No Costovertebral Tender
Neuro: AO x 3
Psych: Calm
Data Reviewed
-
Total Time Spent with Patient (in minutes): 44
CT Scan: Report Reviewed by me and Discussed with Physician
Labs: Labs Reviewed by me
--- NOTE | 2025-01-23 11:18 | CM ---
Reviewed the chart notes and spoke with the patient at the bedside. Patient resides with her spouse in a two story home with two steps to enter. The patient reports no DME/VN/SNF in the past. The patient confirmed her pharmacy of choice is [facility]. Patient currently NPO. CM continues to be available to patient/family and is monitoring medical plan for needs at discharge.
Plan: Discharge plans will depend on the patient's progress.
[2025-01-23 14:53] LABS: Hematocrit 39.3 % (37.0-47.0); Hemoglobin 13.6 g/dL (12.0-16.0)
[2025-01-23] MEDS: NSS (PRESERVATIVE FREE) 10 ML IV (20:19)
[2025-01-23] MEDS: PROTONIX IV 40 MG IV (20:20)
[2025-01-23] MEDS: PROTONIX IV (21:28)
[2025-01-24] VITALS (7 sets, daily range): BP systolic 108–125; BP diastolic 57–68; PULSE 75; O2SAT 95–97
[2025-01-24] MEDS: SYNTHROID 75 MCG PO (05:13)
[2025-01-24] MEDS: FLAGYL 500 MG 100 IV ×3 (05:14→21:05)
[2025-01-24] MEDS: ROCEPHIN 2000 MG IV (05:17)
[2025-01-24] MEDS: STERILE WATER FOR INJECTION 20 ML IV (05:17)
[2025-01-24] MEDS: D5/0.9% SODIUM CHLORIDE 1000 IV ×2 (05:45→16:00)
[2025-01-24] MEDS: COMPAZINE 5 MG IV ×3 (06:17→21:55)
[2025-01-24 06:50] LABS: Hematocrit 39.3 % (37.0-47.0); Hemoglobin 13.0 g/dL (12.0-16.0); Mean Corp Hgb Conc. 33.1 g/dL (33.0-37.0); Mean Corpuscular Volume 90.8 fL (81.0-99.0); Nucleated Red Blood Cells % 0 %; Platelet Count 193 10^3/uL (130-400); Red Cell Dist. Width 12.8 % (11.5-14.5)
[2025-01-24] MEDS: NSS (PRESERVATIVE FREE) 10 ML IV ×2 (08:50→20:30)
[2025-01-24] MEDS: PROTONIX IV 40 MG IV ×2 (08:50→20:30)
--- NOTE | 2025-01-24 11:00 | W.PN.HOSP.TC ---
Today's Communication/Plan
-
clears
IVF
IV Abx
follow Hb
GI and GS following
Assessment / Plan
Assessment / Plan
Assessment:
Acute GI bleed (hematemesis and also Lower GI bleed 01/24)
- suspect both bleeding symptoms reactive to lower GI issues causing vomiting/nausea
- monitor Hb stable
- continue PPI drip
- anti-emetics
- NPO/Ice chips/sips for now
- may need NG tube
- GI following
Severe sepsis POA (lactic acidosis, tachycardia, leukocytosis)
Acute diverticulitis, sigmoid, uncomplicated
Enteritis, patch, suspect reactive vs less likely primary enteritis
- CT: 2 discontinuous areas of enteritis involving the small bowel, with involvement of the proximal to mid jejunum in the left upper quadrant and involvement of the distal ileum in the right lower quadrant. There is significant stranding and edema
within the adjacent mesentery of these involve loops of bowel. Free fluid within the abdomen and pelvis. See above discussion. No evidence of free intraperitoneal air. Short segment of diverticulitis involving the sigmoid colon within the central
and right paramedian pelvis. No evidence for associated abscess.
- CTA without acute ischemia
- diet: clears
- continue Rocephin/Flagyl, day 2
- stool studies
- GI and GS following
Abnormal UA
- follow culture for possible UTI; on Rocephin already
Hypothyroidism - on replacement
HLD - hold statin
DVT ppx: SCDs
Code: Full
Anticipated Discharge: > 48 hours
Subjective/Interval History
-
Date of Service: January 24, 2025
patient reports some bloody BM, Heme + per RN
abd pain stable, no vomiting/nausea
Objective Data
-
Labs:
Laboratory Results
01/24/25 01/24/25
06:34 07:41
WBC 15.6 H
Hgb 13.0
Hct 39.3
Plt Count 193 D
Sodium Cancelled Pending
Potassium Cancelled Pending
Chloride Cancelled Pending
Carbon Dioxide Cancelled Pending
BUN Cancelled Pending
Creatinine Cancelled Pending
Glucose Cancelled Pending
Calcium Cancelled Pending
Total Bilirubin Cancelled Pending
AST Cancelled Pending
ALT Cancelled Pending
Alkaline Phosphatase Cancelled Pending
Vital Signs:
Vital Signs
Temp Pulse Resp BP Pulse Ox
97.6 F 78 14 125/64 97
01/24/25 07:40 01/24/25 07:40 01/24/25 07:40 01/24/25 07:40 01/24/25 07:40
I&O
01/23/25 01/24/25 01/25/25
06:59 06:59 06:59
Intake Total 350 / 350 1400 / 1400
Balance 350 / 350 1400 / 1400
Physical Exam
-
General: No Apparent Distress
HEENT: Normocephalic and Atraumatic
Respiratory: Negative Wheezes
Cardiac: Regular Rhythm and S1/S2
GI: Tender (diffusely) and Distended
Musculoskeletal: No Edema
Neuro: AO x 3
Psych: Calm
Data Reviewed
-
Total Time Spent with Patient (in minutes): 41
Labs: Labs Reviewed by me
[2025-01-24] MEDS: D5/0.9% SODIUM CHLORIDE IV (11:40)
--- NOTE | 2025-01-24 12:58 | W.PN.GS2 ---
Today's Communication / Plan
-
-- clear liquids
-- continue antibiotics and hydration
-- follow-up stool cultures
-- monitor labs
Assessment / Plan
-
79 yo F with a PMH of GERD, HLD, hypothyroidism, and chronic constipation who presents with 4 days of abdominal discomfort, nausea, vomiting. AVSS, leukocytosis and elevated lactate (2.8). CT abdomen and pelvis 01/22 with IV contrast with thickening
of small bowel in the jejunum and distal ileum with some mesenteric stranding. Some free fluid and possible short segment of sigmoid diverticulitis. No free air. Repeat CT (angio this time) with persistent small bowel wall thickening and now
possible thickening of the distal transverse colon to the sigmoid colon. WBC improving and lactate normalized.
-- possible ischemia versus enterocolitis. Clinically improving.
-- Continue antibiotics and hydration.
-- WBC 15.6 today (16.6 -->18.8). Lactate now normal.
-- Stool cultures pending
-- GI following
-- SCD's for DVT prophylaxis. Consider Lovenox as Hgb remains stable.
-- No plans for surgery. Will begin clear liquids.
Subjective Data
-
Date of Service: January 24, 2025
Some nausea overnight but improved and her abdominal pain has also improved. She had 1 large black/blood-tinged bowel movement this am. Thirsty.
Objective Data
-
Intake and Output
01/23/25 01/24/25 01/25/25
06:59 06:59 06:59
Intake Total 350 / 350 1400 / 1400
Balance 350 / 350 1400 / 1400
Intake:
IV fluids (Total) 200 / 200 1200 / 1200
IV piggybacks 150 / 150 200 / 200
Other:
Number of approximated MODERATE 1
amounts of urine
Number of approximated LARGE 1
amounts of urine
Vital Signs
Temp Pulse Resp BP Pulse Ox
97.6 F 78 14 125/64 97
01/24/25 07:40 01/24/25 07:40 01/24/25 07:40 01/24/25 07:40 01/24/25 07:40
Lab Results
01/24/25 06:34
Calcium Cancelled 01/24/25 06:34
Total Bilirubin Cancelled 01/24/25 06:34
Direct Bilirubin Cancelled 01/24/25 06:34
AST Cancelled 01/24/25 06:34
ALT Cancelled 01/24/25 06:34
Alkaline Phosphatase Cancelled 01/24/25 06:34
Total Protein Cancelled 01/24/25 06:34
Albumin Cancelled 01/24/25 06:34
Physical Exam
-
Soft, nondistended and no significant tenderness.
Patient has a espana catheter: No
Patient has a central line: No
--- NOTE | 2025-01-24 13:22 | W.PN.GI.CBS2 ---
Today's Communication / Plan
-
Clear liquid diet
Continue PPI twice daily
Monitor H&H
Assessment / Plan
-
79-year-old female with past medical history of hyperlipidemia, hypothyroidism, GERD, chronic constipation and osteoporosis presents to the emergency room with 2-day history of nausea followed by fever, abdominal pain then vomiting dark material
bringing her to the emergency room. Asked to evaluate for the same. Started initially with nausea followed by fever at home. Proceeded to have abdominal cramping passing hard ball-like stools and eventually diarrhea. Vomited 'dark-colored
material'. On presentation WBC 16.6 currently 18.8, lactic acid was 2.8 currently 1.8, D-dimer 15.87, hemoglobin stable currently 13.5 down from 14.6. BUN [address] angio of the abdomen with and without shows moderate stenosis at
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 Persistent bowel wall thickening moderate to advanced bowel wall thickening involving the proximal to mid jejunum in the left abdomen. Though there is also mild
wall thickening involving the mid to distal ileum. There may also be mild long segment wall thickening involving the transverse colon through the sigmoid colon though this wall thickness may be accentuated by underdistention. There is also
mesenteric soft tissue stranding/edema as well as ascites. Patient with mild diffuse tenderness of the abdomen. Significant nausea. Has not passed flatus and has only had 1 bowel movement since arrival. Remains afebrile. Continues on
ceftriaxone and Flagyl. Has been placed on a pantoprazole drip. She is also NPO.
Impression
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
sepsis
dark/bloody stool
plan
Case discussed yesterday with hospitalist/general surgery. Possible etiology infectious versus inflammatory. Less likely ischemic with negative CTA. 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
Clinically patient feeling better today. No vomiting. 1 episode of dark stool yesterday night. Repeat Hb this a.m. was stable
Continue to monitor H&H. Will hold off on endoscopic evaluation unless patient continues to have evidence of overt GI bleeding
Clear liquid diet
IV hydration
continue IV antibiotics started by medical team. Sepsis workup as per medical team
Antiemetics as needed
Continue PPI IV bid
stool testing for infection-negative for C. difficile/norovirus. Stool culture pending
Continue follow-up with surgery recommendation
Total Time Spent with Patient (in minutes): 35
Subjective
Subjective
Date of Service: January 24, 2025
Feeling better. Abdominal pain better. No vomiting. Had a dark BM last night
Objective
Data Reviewed
Laboratory Data:
Laboratory Results
01/24/25 06:34
Laboratory Results
Total Bilirubin Cancelled 01/24/25 06:34
AST Cancelled 01/24/25 06:34
ALT Cancelled 01/24/25 06:34
Alkaline Phosphatase Cancelled 01/24/25 06:34
Lipase 27 U/L (23-300) 01/22/25 18:57
Vital Signs and I&O:
Vital Signs
Temp Pulse Resp BP Pulse Ox
97.6 F 78 14 125/64 97
01/24/25 07:40 01/24/25 07:40 01/24/25 07:40 01/24/25 07:40 01/24/25 07:40
I&O
01/23/25 01/24/25 01/25/25
06:59 06:59 06:59
Intake Total 350 / 350 1400 / 1400
Balance 350 / 350 1400 / 1400
Physical Exam
Physical Exam
GI: Soft, Distended and Tender (Mid abdominal tenderness without rigidity or guarding)
[2025-01-24 14:13] LABS: ALT (SGPT) 17 U/L (0-35); AST (SGOT) 25 U/L (14-36); Albumin 2.7 g/dl (3.5-5.0); Alkaline Phosphatase 62 U/L (38-126); Blood Urea Nitrogen 15 mg/dl (7-17); Calcium 7.1 mg/dl (8.4-10.2); Carbon Dioxide 21 mmol/L (22-30); Chloride 112 mmol/L (98-107); Estimated Creatinine Clearance 67 ml/min; Glucose 117 mg/dl (70-99); Potassium 3.4 mmol/L (3.5-5.1); Sodium 137 mmol/L (135-145); Total Protein 5.6 g/dl (6.3-8.2); eGFR > 60.00
[2025-01-24] MEDS: MORPHINE SULFATE 2 MG IV (15:38)
[2025-01-25 02:51] VITALS: BP 104/54
[2025-01-25] MEDS: STERILE WATER FOR INJECTION 20 ML IV (05:00)
[2025-01-25] MEDS: FLAGYL 500 MG 100 IV (05:00)
[2025-01-25] MEDS: ROCEPHIN 2000 MG IV (05:00)
[2025-01-25] MEDS: SYNTHROID 75 MCG PO (05:00)
[2025-01-25 06:36] LABS: Hematocrit 36.1 % (37.0-47.0); Hemoglobin 12.0 g/dL (12.0-16.0); Mean Corp Hgb Conc. 33.2 g/dL (33.0-37.0); Mean Corpuscular Volume 94.3 fL (81.0-99.0); Platelet Count 262 10^3/uL (130-400); Red Cell Dist. Width 12.7 % (11.5-14.5)
[2025-01-25] MEDS: TYLENOL 650 MG PO (06:44)
[2025-01-25] MEDS: NSS (PRESERVATIVE FREE) 10 ML IV ×2 (07:40→19:40)
[2025-01-25] MEDS: PROTONIX IV 40 MG IV ×2 (07:40→19:40)
[2025-01-25 08:26] LABS: Blood Urea Nitrogen 12 mg/dl (7-17); Calcium 7.1 mg/dl (8.4-10.2); Carbon Dioxide 24 mmol/L (22-30); Chloride 110 mmol/L (98-107); Estimated Creatinine Clearance 67 ml/min; Glucose 93 mg/dl (70-99); Potassium 3.1 mmol/L (3.5-5.1); Sodium 139 mmol/L (135-145); eGFR > 60.00
[2025-01-25 09:30] VITALS: BP 106/55
[2025-01-25] MEDS: COMPAZINE 5 MG IV (11:16)
[2025-01-25 11:35] VITALS: BP 130/69
[2025-01-25] MEDS: KCL 40 MEQ PO (11:37)
--- NOTE | 2025-01-25 11:47 | W.PN.GI.CBS2 ---
Today's Communication / Plan
-
Continue clear liquid diet
Antiemetics as needed
Monitor H&H
Assessment / Plan
-
79-year-old female with past medical history of hyperlipidemia, hypothyroidism, GERD, chronic constipation and osteoporosis presents to the emergency room with 2-day history of nausea followed by fever, abdominal pain then vomiting dark material
bringing her to the emergency room. Asked to evaluate for the same. Started initially with nausea followed by fever at home. Proceeded to have abdominal cramping passing hard ball-like stools and eventually diarrhea. Vomited 'dark-colored
material'. On presentation WBC 16.6 currently 18.8, lactic acid was 2.8 currently 1.8, D-dimer 15.87, hemoglobin stable currently 13.5 down from 14.6. BUN [address] angio of the abdomen with and without shows moderate stenosis at
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 Persistent bowel wall thickening moderate to advanced bowel wall thickening involving the proximal to mid jejunum in the left abdomen. Though there is also mild
wall thickening involving the mid to distal ileum. There may also be mild long segment wall thickening involving the transverse colon through the sigmoid colon though this wall thickness may be accentuated by underdistention. There is also
mesenteric soft tissue stranding/edema as well as ascites. Patient with mild diffuse tenderness of the abdomen. Significant nausea. Has not passed flatus and has only had 1 bowel movement since arrival. Remains afebrile. Continues on
ceftriaxone and Flagyl. Has been placed on a pantoprazole drip. She is also NPO.
Impression
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
sepsis
dark/bloody stool
plan
Case discussed ywith hospitalist/general surgery. Possible etiology infectious versus inflammatory. Less likely ischemic with negative CTA. 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
Clinically patient feeling better today. No vomiting. dark stool +. Repeat Hb relatively stable
Continue to monitor H&H. Will hold off on endoscopic evaluation unless patient continues to have evidence of overt GI bleeding or significant drop in Hb
continue Clear liquid diet with antiemetics
IV hydration
continue IV antibiotics started by medical team. Sepsis workup as per medical team
Continue PPI IV bid
stool testing for infection-negative for C. difficile/norovirus. Stool culture pending
Continue follow-up with surgery recommendation
Total Time Spent with Patient (in minutes): 35
Subjective
Subjective
Date of Service: January 25, 2025
Abdominal pain is much better. Some nausea with clear liquid diet. Had a dark BM this a.m.
Objective
Data Reviewed
Laboratory Data:
Laboratory Results
01/25/25 05:44
01/25/25 05:44
Laboratory Results
Total Bilirubin 0.7 mg/dl (0.2-1.3) D 01/24/25 13:27
AST 25 U/L (14-36) 01/24/25 13:27
ALT 17 U/L (0-35) 01/24/25 13:27
Alkaline Phosphatase 62 U/L (38-126) 01/24/25 13:27
Lipase 27 U/L (23-300) 01/22/25 18:57
Vital Signs and I&O:
Vital Signs
Temp Pulse Resp BP Pulse Ox
98.1 F 81 15 106/55 95
01/25/25 09:30 01/25/25 09:30 01/25/25 09:30 01/25/25 09:30 01/25/25 09:30
I&O
01/24/25 01/25/25 01/26/25
06:59 06:59 06:59
Intake Total 1400 / 1400 1400 / 1400
Balance 1400 / 1400 1400 / 1400
Physical Exam
Physical Exam
GI: Soft, Non Distended and Non Tender
[2025-01-25] MEDS: D5/0.9% with KCL 40 MEQ 1000 IV (11:56)
--- NOTE | 2025-01-25 12:34 | W.PN.HOSP.TC ---
Today's Communication/Plan
-
potential switch from Stanley/Flagyl to Zosyn to eliminate flagyl as cause of nausea; PCN allergy will review with pharmacy
continue IVF, clears
follow GI and GS recs
Assessment / Plan
Assessment / Plan
Assessment:
Acute GI bleed (hematemesis and also Lower GI bleed 01/24)
- suspect both bleeding symptoms reactive to lower GI issues causing vomiting/nausea
- monitor Hb stable
- continue PPI drip
- anti-emetics
- diet: clears
- may need NG tube
- GI following
Severe sepsis POA (lactic acidosis, tachycardia, leukocytosis)
Acute diverticulitis, sigmoid, uncomplicated
Enteritis, patch, suspect reactive vs less likely primary enteritis
- CT: 2 discontinuous areas of enteritis involving the small bowel, with involvement of the proximal to mid jejunum in the left upper quadrant and involvement of the distal ileum in the right lower quadrant. There is significant stranding and edema
within the adjacent mesentery of these involve loops of bowel. Free fluid within the abdomen and pelvis. See above discussion. No evidence of free intraperitoneal air. Short segment of diverticulitis involving the sigmoid colon within the central
and right paramedian pelvis. No evidence for associated abscess.
- CTA without acute ischemia
- diet: clears
- continue Rocephin/Flagyl, day 3; consider Zosyn (will d/w Pharmacy with PCN allergy). Possible ongoing nausea from Flagyl
- stool studies
- GI and GS following
Abnormal UA
- follow culture for possible UTI; on Rocephin already
Hypothyroidism - on replacement
HLD - hold statin
Hypokalemia
- replete oral and IV prn
DVT ppx: SCDs
Code: Full
Anticipated Discharge: > 48 hours
Subjective/Interval History
-
Date of Service: January 25, 2025
remains with nausea, limited intake of clears due to nausea
Objective Data
-
Labs:
Laboratory Results
01/25/25
05:44
WBC 15.5 H
Hgb 12.0
Hct 36.1 L
Plt Count 262 D
Sodium 139
Potassium 3.1 L
Chloride 110 H
Carbon Dioxide 24
BUN 12
Creatinine 0.6
Glucose 93
Calcium 7.1 L
Vital Signs:
Vital Signs
Temp Pulse Resp BP Pulse Ox
97.9 F 80 16 130/69 95
01/25/25 11:35 01/25/25 11:35 01/25/25 11:35 01/25/25 11:35 01/25/25 11:35
I&O
01/24/25 01/25/25 01/26/25
06:59 06:59 06:59
Intake Total 1400 / 1400 1400 / 1400
Balance 1400 / 1400 1400 / 1400
Physical Exam
-
General: No Apparent Distress
HEENT: Normocephalic and Atraumatic
Respiratory: Negative Wheezes
Cardiac: Regular Rhythm and S1/S2
GI: Soft and Nontender
Genito-urinary: No Costovertebral Tender
Neuro: AO x 3
Psych: Calm
Data Reviewed
-
Total Time Spent with Patient (in minutes): 41
Labs: Labs Reviewed by me
[2025-01-25] MEDS: ZOSYN 50 IV ×2 (13:45→19:40)
--- NOTE | 2025-01-25 13:56 | W.PN.GS2 ---
Today's Communication / Plan
-
-- clear liquids
-- continue antibiotics and hydration
-- follow-up stool cultures
-- monitor labs
Assessment / Plan
-
79 yo F with a PMH of GERD, HLD, hypothyroidism, and chronic constipation who presented with 4 days of abdominal discomfort, nausea, vomiting. AVSS, leukocytosis and elevated lactate (2.8). CT abdomen and pelvis 01/22 with IV contrast with
thickening of small bowel in the jejunum and distal ileum with some mesenteric stranding. Some free fluid and possible short segment of sigmoid diverticulitis. No free air. Repeat CT (angio this time) with persistent small bowel wall thickening and
now possible thickening of the distal transverse colon to the sigmoid colon. WBC improving and lactate normalized.
-- possible ischemia versus enterocolitis. Clinically improving.
-- Continue antibiotics and hydration.
-- WBC 15.5 today (15.6, 16.6 -->18.8). Lactate normalized
-- Stool cultures pending. C-diff and norovirus negative
-- GI following
-- SCD's for DVT prophylaxis. Consider Lovenox as Hgb remains stable.
-- No plans for surgery. Continue clear liquids.
Subjective Data
-
Date of Service: January 25, 2025
Pt seen and evaluated at bedside with Dr. Orlando. Pain better. Still feels bloated. Passed another tarry bm last noc. Nausea yesterday but feels a little better today.
Objective Data
-
Intake and Output
01/24/25 01/25/25 01/26/25
06:59 06:59 06:59
Intake Total 1400 / 1400 1400 / 1400
Balance 1400 / 1400 1400 / 1400
Intake:
Oral fluids 720 / 720
IV fluids (Total) 1200 / 1200 480 / 480
IV piggybacks 200 / 200 200 / 200
Other:
Number of approximated MODERATE 1 5
amounts of urine
Number of unmeasured liquid
stools
Rectum 1
Vital Signs
Temp Pulse Resp BP Pulse Ox
97.9 F 80 16 130/69 95
01/25/25 11:35 01/25/25 11:35 01/25/25 11:35 01/25/25 11:35 01/25/25 11:35
Lab Results
01/25/25 05:44
01/25/25 05:44
Calcium 7.1 mg/dl (8.4-10.2) L 01/25/25 05:44
Total Bilirubin 0.7 mg/dl (0.2-1.3) D 01/24/25 13:27
Direct Bilirubin 0.4 mg/dl (0.0-0.4) 01/24/25 13:27
AST 25 U/L (14-36) 01/24/25 13:27
ALT 17 U/L (0-35) 01/24/25 13:27
Alkaline Phosphatase 62 U/L (38-126) 01/24/25 13:27
Total Protein 5.6 g/dl (6.3-8.2) L 01/24/25 13:27
Albumin 2.7 g/dl (3.5-5.0) L 01/24/25 13:27
Physical Exam
-
NAD
Soft, nondistended and no significant tenderness.
Patient has a espana catheter: No
Patient has a central line: No
[2025-01-25 16:00] VITALS: BP 125/63
[2025-01-25] MEDS: MORPHINE SULFATE IV (17:32)
[2025-01-25] MEDS: MORPHINE SULFATE 2 MG IV (19:00)
[2025-01-25 23:10] VITALS: BP 131/66
[2025-01-26] MEDS: ZOSYN 50 IV ×4 (01:00→20:21)
[2025-01-26] MEDS: COMPAZINE 5 MG IV ×2 (04:50→13:15)
[2025-01-26] MEDS: SYNTHROID 75 MCG PO (05:00)
[2025-01-26 07:42] VITALS: BP 128/70
[2025-01-26 07:49] LABS: Hematocrit 31.5 % (37.0-47.0); Hemoglobin 11.0 g/dL (12.0-16.0); Mean Corp Hgb Conc. 34.9 g/dL (33.0-37.0); Mean Corpuscular Volume 90.8 fL (81.0-99.0); Platelet Count 228 10^3/uL (130-400); Red Cell Dist. Width 12.8 % (11.5-14.5)
[2025-01-26 08:18] LABS: Blood Urea Nitrogen 10 mg/dl (7-17); Calcium 6.9 mg/dl (8.4-10.2); Carbon Dioxide 24 mmol/L (22-30); Chloride 111 mmol/L (98-107); Estimated Creatinine Clearance 67 ml/min; Glucose 90 mg/dl (70-99); Potassium 3.4 mmol/L (3.5-5.1); Sodium 137 mmol/L (135-145); eGFR > 60.00
[2025-01-26] MEDS: PROTONIX IV 40 MG IV ×2 (08:54→20:22)
[2025-01-26] MEDS: NSS (PRESERVATIVE FREE) 10 ML IV ×2 (08:55→20:21)
--- NOTE | 2025-01-26 09:38 | W.PN.GI.CBS2 ---
Today's Communication / Plan
-
continue current management
Assessment / Plan
-
79-year-old female with past medical history of hyperlipidemia, hypothyroidism, GERD, chronic constipation and osteoporosis presents to the emergency room with 2-day history of nausea followed by fever, abdominal pain then vomiting dark material
bringing her to the emergency room. Asked to evaluate for the same. Started initially with nausea followed by fever at home. Proceeded to have abdominal cramping passing hard ball-like stools and eventually diarrhea. Vomited 'dark-colored
material'. On presentation WBC 16.6 currently 18.8, lactic acid was 2.8 currently 1.8, D-dimer 15.87, hemoglobin stable currently 13.5 down from 14.6. BUN [address] angio of the abdomen with and without shows moderate stenosis at
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 Persistent bowel wall thickening moderate to advanced bowel wall thickening involving the proximal to mid jejunum in the left abdomen. Though there is also mild
wall thickening involving the mid to distal ileum. There may also be mild long segment wall thickening involving the transverse colon through the sigmoid colon though this wall thickness may be accentuated by underdistention. There is also
mesenteric soft tissue stranding/edema as well as ascites. Patient with mild diffuse tenderness of the abdomen. Significant nausea. Has not passed flatus and has only had 1 bowel movement since arrival. Remains afebrile. Continues on
ceftriaxone and Flagyl. Has been placed on a pantoprazole drip. She is also NPO.
Impression
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
sepsis
dark/bloody stool
plan
Case discussed ywith hospitalist/general surgery. Possible etiology infectious versus inflammatory. Less likely ischemic with negative CTA. 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
Clinically patient claims abdominal pain is better but continues to have nausea . No vomiting. loose stool after melas . greenish brown as per nursing
Continue to monitor H&H. Will hold off on endoscopic evaluation unless patient continues to have evidence of overt GI bleeding or significant drop in Hb
continue Clear liquid diet with antiemetics since patient continues to have nausea
IV hydration
continue IV antibiotics started by medical team. Sepsis workup as per medical team
Continue PPI IV bid
stool testing for infection-negative for C. difficile/norovirus. Stool culture pending
Continue follow-up with surgery recommendation
Total Time Spent with Patient (in minutes): 35
Subjective
Subjective
Date of Service: January 26, 2025
abdominal pain is better. she continues to have nausea . She claims she has loose stools after she tried CLD . as per nursing stool greenish brown
Objective
Data Reviewed
Laboratory Data:
Laboratory Results
01/26/25 06:25
01/26/25 06:25
Laboratory Results
Total Bilirubin 0.7 mg/dl (0.2-1.3) D 01/24/25 13:27
AST 25 U/L (14-36) 01/24/25 13:27
ALT 17 U/L (0-35) 01/24/25 13:27
Alkaline Phosphatase 62 U/L (38-126) 01/24/25 13:27
Lipase 27 U/L (23-300) 01/22/25 18:57
Vital Signs and I&O:
Vital Signs
Temp Pulse Resp BP Pulse Ox
98 F 96 16 128/70 96
01/26/25 07:42 01/26/25 07:42 01/26/25 07:42 01/26/25 07:42 01/26/25 07:42
I&O
01/25/25 01/26/25 01/27/25
06:59 06:59 06:59
Intake Total 1400 / 1400 1368 / 1368
Balance 1400 / 1400 1368 / 1368
Physical Exam
Physical Exam
GI: Soft, Distended (mildly distended ) and Non Tender
[2025-01-26 11:16] VITALS: BP 115/59; PULSE 84; O2SAT 94
--- NOTE | 2025-01-26 11:38 | CM ---
Reviewed the chart notes and spoke with the patient, spouse and daughter at the bedside. Patient continues with abdominal discomfort. Patient to have a small bowel RF today. CM continues to be available to patient/family and is monitoring medical
plan for needs at discharge.
Plan: Discharge plans will depend on the patient's progress.
--- NOTE | 2025-01-26 11:39 | W.PN.GS2 ---
Addendum entered and electronically signed by Dayo Avila MD 01/26/25 19:15:
I saw and examined the patient independently.
The Dry Kiln Operator's note was reviewed and I agree with the note, assessment and plan except where noted below.
Comment: This is a an 79-year-old female who presents with 4 days of abdominal pain nausea vomiting with unclear etiology, some concern for possible ischemia versus infectious etiology. She has had 2 CAT scans which showed a fair amount of
inflammation and some free fluid but no clear source.
Small bowel follow-through reviewed, her transit time is quite impressive with contrast in the colon and 20 minutes indicating that there is no obstruction but does imply there is some degree of inflammation in the small bowel.
A.m. x-ray ordered
Clinically however she is improving slowly manage nonoperatively for now.
Will continue on clears, can advance diet as tolerated.
General surgery will follow peripherally, please call with questions or concerns.
Original Note:
Today's Communication / Plan
-
SBFT
Assessment / Plan
-
79 yo F with a PMH of GERD, HLD, hypothyroidism, and chronic constipation who presented with 4 days of abdominal discomfort, nausea, vomiting. AVSS, leukocytosis and elevated lactate (2.8). CT abdomen and pelvis 01/22 with IV contrast with
thickening of small bowel in the jejunum and distal ileum with some mesenteric stranding. Some free fluid and possible short segment of sigmoid diverticulitis. No free air. Repeat CT (angio this time) with persistent small bowel wall thickening and
now possible thickening of the distal transverse colon to the sigmoid colon. WBC improving and lactate normalized. Following for possible ischemia versus enterocolitis. Clinically improving but slowly
AFVSS
WBC remains elevated but stable, H/H drifting
No further tarry stools, had a green bm today
Stool cultures pending. C-diff and norovirus negative
Plan:
-- Tolerating clears
-- SBFT today
-- GI following
-- SCD's for DVT prophylaxis. Consider Lovenox as Hgb remains stable.
Subjective Data
-
Date of Service: January 26, 2025
Pt seen and examined at bedside with Dr. Philip. Najera n/v today. Some residual abdominal discomfort but overall better than presentation but not much better than yesterday. Passing liquid green bm's.
Objective Data
-
Intake and Output
01/25/25 01/26/25 01/27/25
06:59 06:59 06:59
Intake Total 1400 / 1400 1368 / 1368
Balance 1400 / 1400 1368 / 1368
Intake:
Oral fluids 720 / 720 238 / 238
IV fluids (Total) 480 / 480 1080 / 1080
IV piggybacks 200 / 200 50 / 50
Other:
Number of approximated MODERATE 5 2
amounts of urine
Number of approximated LARGE 1
amounts of urine
Number of unmeasured liquid
stools
Rectum 1
Vital Signs
Temp Pulse Resp BP Pulse Ox
98 F 96 16 128/70 96
01/26/25 07:42 01/26/25 07:42 01/26/25 07:42 01/26/25 07:42 01/26/25 07:42
Lab Results
01/26/25 06:25
01/26/25 06:25
Calcium 6.9 mg/dl (8.4-10.2) L* 01/26/25 06:25
Total Bilirubin 0.7 mg/dl (0.2-1.3) D 01/24/25 13:27
Direct Bilirubin 0.4 mg/dl (0.0-0.4) 01/24/25 13:27
AST 25 U/L (14-36) 01/24/25 13:27
ALT 17 U/L (0-35) 01/24/25 13:27
Alkaline Phosphatase 62 U/L (38-126) 01/24/25 13:27
Total Protein 5.6 g/dl (6.3-8.2) L 01/24/25 13:27
Albumin 2.7 g/dl (3.5-5.0) L 01/24/25 13:27
Physical Exam
-
NAD
Soft, nondistended and mild generalized tenderness.
Patient has a espana catheter: No
Patient has a central line: No
[2025-01-26] MEDS: MORPHINE SULFATE 2 MG IV (13:17)
[2025-01-26 13:41] VITALS: BMI 29.6
--- NOTE | 2025-01-26 14:05 | W.PN.HOSP.TC ---
Today's Communication/Plan
-
Follow-up upper GI series report
Diet advancement per GI/general surgery
maintain on abx
Assessment / Plan
Assessment / Plan
CT a/p w/wo IV contrast
No aortic aneurysm or dissection.
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
No venous phase provided, therefore, cannot assess for venous patency.
Persistent bowel wall thickening. Moderate to advanced bowel thickening involving the proximal to mid jejunum in the left abdomen, though there is also mild wall thickening involving mid to distal ileum. There may also be mild long segment wall
thickening involving the transverse colon through sigmoid colon, though wall thickness may be accentuated by underdistention. There is also mesenteric soft tissue stranding/edema as well as ascites. Exact etiology uncertain. Possibly infectious or
inflammatory. Ischemic etiology may also be considered.
The remainder the examination is stable with findings as described.
The examination was performed after-hours on an emergency basis, with initial preliminary interpretation provided by [facility].
1. Sepsis - POA
Acute entero-colitis - infectious vs ischemic
- Patient initially presented for hematemesis and blood in stool
- CT abdomen pelvis at admission showing enteritis and diverticulitis. Repeat CT abdomen pelvis report as above with diffuse segments of small bowel and large intestine involved in possible infectious vs inflammatory vs ischemic response
- CTA abd was moderate stenosis of celiac/SMA
- Infectious workup has been negative including norovirus/C. difficile. Final stool culture report pending
- Currently being maintained on empiric Zosyn
2. GI bleed
- Hematemesis and some reported blood in stool as well
- Hemoglobin remains stable
- GI following and holding on doing EGD
3. Episodic nausea
Paraesophageal hernia
- Patient have large paraesophageal hernia and possibly aggravating symptoms of nausea
- Also patient current intestinal imaging findings might also adding to the issue
- Follow-up upper GI series report
4. Hypothyroidism
- Maintained on levothyroxine
5. HLD
- hold statin
6. Hypokalemia
- replete oral and IV prn
DVT ppx: SCDs
Code: Full
Total time spent : 54 mins
Anticipated Discharge: 24 - 48 hours
Subjective/Interval History
-
Date of Service: January 26, 2025
Continues to complain nausea
able to tolerate dinner last night no vomiting
no abd pain/diarrhea
Objective Data
-
Labs:
Laboratory Results
01/26/25
06:25
WBC 15.2 H
Hgb 11.0 L
Hct 31.5 L
Plt Count 228
Sodium 137
Potassium 3.4 L
Chloride 111 H
Carbon Dioxide 24
BUN 10
Creatinine 0.6
Glucose 90
Calcium 6.9 L*
Vital Signs:
Vital Signs
Temp Pulse Resp BP Pulse Ox
98 F 96 16 128/70 96
01/26/25 07:42 01/26/25 07:42 01/26/25 07:42 01/26/25 07:42 01/26/25 07:42
I&O
01/25/25 01/26/25 01/27/25
06:59 06:59 06:59
Intake Total 1400 / 1400 1368 / 1368
Balance 1400 / 1400 1368 / 1368
Review of Systems
-
Respiratory: Reports No Symptoms
Cardiac: Reports No Symptoms
Abdomen/GI: Reports No Symptoms
[2025-01-26 15:40] VITALS: BP 133/67
[2025-01-26] MEDS: LOVENOX 40 MG SC (17:46)
[2025-01-26 23:21] VITALS: BP 128/71
[2025-01-27] MEDS: ZOSYN 50 IV ×3 (01:41→17:16)
[2025-01-27] MEDS: SYNTHROID 75 MCG PO (05:20)
[2025-01-27] MEDS: COMPAZINE 5 MG IV (05:46)
--- NOTE | 2025-01-27 07:44 | W.PN.GS2 ---
Today's Communication / Plan
-
-- Repeat X-ray abdomen, suspect that she will need a repeat CT with PO and IV contrast if pain and WBC persist
-- Continue with clears
-- Abx: Zosyn
Assessment / Plan
-
79 yo F with a PMH of GERD, HLD, hypothyroidism, and chronic constipation who presented with 4 days of abdominal discomfort, nausea, vomiting.
CT abdomen and pelvis 01/22 with IV contrast with thickening of small bowel in the jejunum and distal ileum with some mesenteric stranding. Some free fluid and possible short segment of sigmoid diverticulitis. No free air.
Repeat CT (angio this time) with persistent small bowel wall thickening and now possible thickening of the distal transverse colon to the sigmoid colon.
AFVSS
Repeat labs pending
No further tarry stools, had a green BM yesterday
Stool cultures pending. C-diff and norovirus negative
WBC improving (but not normalized and lactate normalized). Following for possible ischemia versus enterocolitis. Clinically improving but slowly.
Plan:
-- Repeat X-ray abdomen, suspect that she will need a repeat CT with PO and IV contrast if pain and WBC persist
-- Continue with clears
-- Abx: Zosyn
-- GI following
-- DVT: Lovenox, SCDs
Subjective Data
-
Date of Service: January 27, 2025
Continues to report a crampy abdominal pain which is worsened with oral intake. Pain worsens while eating. Mild nausea, no episodes of emesis. Reports multiple loose green BMs overnight. No passage of flatus reported. Ambulating. Voiding.
Afebrile.
Objective Data
-
Intake and Output
01/26/25 01/27/25 01/28/25
06:59 06:59 06:59
Intake Total 1368 / 1368
Balance 1368 / 1368
Intake:
Oral fluids 238 / 238
IV fluids (Total) 1080 / 1080
IV piggybacks 50 / 50
Other:
Number of approximated MODERATE 2 1
amounts of urine
Number of approximated LARGE 1
amounts of urine
Vital Signs
Temp Pulse Resp BP Pulse Ox
98.4 F 98 16 128/71 94
01/26/25 23:21 01/26/25 23:21 01/26/25 23:21 01/26/25 23:21 01/26/25 23:21
Calcium 6.9 mg/dl (8.4-10.2) L* 01/26/25 06:25
Total Bilirubin 0.7 mg/dl (0.2-1.3) D 01/24/25 13:27
Direct Bilirubin 0.4 mg/dl (0.0-0.4) 01/24/25 13:27
AST 25 U/L (14-36) 01/24/25 13:27
ALT 17 U/L (0-35) 01/24/25 13:27
Alkaline Phosphatase 62 U/L (38-126) 01/24/25 13:27
Total Protein 5.6 g/dl (6.3-8.2) L 01/24/25 13:27
Albumin 2.7 g/dl (3.5-5.0) L 01/24/25 13:27
Physical Exam
-
Gen: NAD
Abd: soft, minimal to no tenderness, obese/stable distension, non-peritoneal
Patient has a espana catheter: No
Patient has a central line: No
[2025-01-27 07:45] VITALS: BP 146/67
[2025-01-27 08:00] LABS: Blood Urea Nitrogen 11 mg/dl (7-17); Calcium 7.1 mg/dl (8.4-10.2); Carbon Dioxide 26 mmol/L (22-30); Chloride 107 mmol/L (98-107); Estimated Creatinine Clearance 67 ml/min; Glucose 85 mg/dl (70-99); Potassium 3.1 mmol/L (3.5-5.1); Sodium 138 mmol/L (135-145); eGFR > 60.00
[2025-01-27 08:01] LABS: Hematocrit 32.7 % (37.0-47.0); Hemoglobin 10.9 g/dL (12.0-16.0); Mean Corp Hgb Conc. 33.3 g/dL (33.0-37.0); Mean Corpuscular Volume 91.1 fL (81.0-99.0); Platelet Count 282 10^3/uL (130-400); Red Cell Dist. Width 13.2 % (11.5-14.5)
--- NOTE | 2025-01-27 09:02 | CM ---
Reviewed the chart notes. Patient continues on clear liquid diet. CM continues to be available to patient/family and is monitoring medical plan for needs at discharge.
Plan: Discharge plan will depend on the patient's progress.
[2025-01-27] MEDS: PROTONIX IV 40 MG IV ×2 (10:18→19:42)
[2025-01-27] MEDS: NSS (PRESERVATIVE FREE) 10 ML IV ×2 (10:18→19:42)
--- NOTE | 2025-01-27 11:09 | W.PN.GI.CBS2 ---
Addendum entered and electronically signed by Latonia Mcgowan MD 01/27/25 20:19:
I saw and examined the patient.
The NEEDLE LOOM TENDER or PA's note was reviewed and I agree with the note.
Comment: Patient continues to have some discomfort in the mid abdomen including, has had dark looking blackish stool, more brown today.
Still feels like she is distended and uncomfortable. Tolerating clear liquid diet.
No fevers or chills.
Leukocytosis noted but hemoglobin stable. LFTs in normal range
Abdominal x-ray today showing nonspecific bowel gas pattern.
- Resolving ileus/ileocolitis
Stool for culture, C. difficile, norovirus, leukocytes negative
Currently on antibiotics for the ileitis/colitis.
Will advance diet as tolerated
Limit narcotic use
Eventually will need CT enterography to evaluate small bowel.
Patient does report intermittent dark looking stool in the last 1 year, colonoscopy 5 years ago at [place] with Dr. Nascimento unremarkable except small polyps.
- History of esophageal dilations in the past with Dr. Mccarthy for esophageal stricture, last dilation 15 years ago and currently no symptoms of dysphagia.
Will follow-up
Original Note:
Today's Communication / Plan
-
As per plan
Assessment / Plan
-
79-year-old female with past medical history of hyperlipidemia, hypothyroidism, GERD, chronic constipation and osteoporosis presents to the emergency room with 2-day history of nausea followed by fever, abdominal pain then vomiting dark material
bringing her to the emergency room. Asked to evaluate for the same. Started initially with nausea followed by fever at home. Proceeded to have abdominal cramping passing hard ball-like stools and eventually diarrhea. Vomited 'dark-colored
material'. On presentation WBC 16.6 currently 18.8, lactic acid was 2.8 currently 1.8, D-dimer 15.87, hemoglobin stable currently 13.5 down from 14.6. BUN [address] angio of the abdomen with and without shows moderate stenosis at
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 Persistent bowel wall thickening moderate to advanced bowel wall thickening involving the proximal to mid jejunum in the left abdomen. Though there is also mild
wall thickening involving the mid to distal ileum. There may also be mild long segment wall thickening involving the transverse colon through the sigmoid colon though this wall thickness may be accentuated by underdistention. There is also
mesenteric soft tissue stranding/edema as well as ascites. Patient with mild diffuse tenderness of the abdomen. Significant nausea. Has not passed flatus and has only had 1 bowel movement since arrival. Remains afebrile. Continues on
ceftriaxone and Flagyl. Has been placed on a pantoprazole drip. She is also NPO.
Impression
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
sepsis
dark/bloody stool-> now green/brown
Plan:
- Clear liquids
-Continue antiemetics
-Continue pantoprazole 40 mg IV twice daily
-Increase in WBC count, afebrile
-Agree that if with worsening leukocytosis, pain would repeat CT abdomen and pelvis with oral and IV contrast
-Continues on Zosyn
- Await stool Robb Pro
Subjective
Subjective
Date of Service: January 27, 2025
Patient still with abdominal pain same as yesterday. Passing green loose stool. Afebrile however white count increased today from yesterday. WBC currently 16.6 up from 15.2 yesterday. Patient with some nausea. Trying to take sips of clears. No
vomiting. Patient had small bowel follow-through yesterday that showed rapid small bowel transit less than 15 minutes. Some separation of opacified loops of small bowel and some findings suggesting some mucosal thickening involving the distal
small bowel, possibly terminal ileum. Findings most likely on an inflammatory/infectious basis. Malignancy or other etiology less likely. Patient had abdominal x-ray performed this morning that shows nonobstructive intestinal bowel gas pattern.
Only minimal residual faint oral contrast seen from small bowel series of preceding date in the right colon.
Objective
Data Reviewed
Laboratory Data:
Laboratory Results
01/27/25 06:19
01/27/25 06:19
Laboratory Results
Total Bilirubin 0.7 mg/dl (0.2-1.3) D 01/24/25 13:27
AST 25 U/L (14-36) 01/24/25 13:27
ALT 17 U/L (0-35) 01/24/25 13:27
Alkaline Phosphatase 62 U/L (38-126) 01/24/25 13:27
Lipase 27 U/L (23-300) 01/22/25 18:57
Vital Signs and I&O:
Vital Signs
Temp Pulse Resp BP Pulse Ox
98.6 F 66 18 146/67 96
01/27/25 07:45 01/27/25 07:45 01/27/25 07:45 01/27/25 07:45 01/27/25 07:45
I&O
01/26/25 01/27/25 01/28/25
06:59 06:59 06:59
Intake Total 1368 / 1368 480 / 480
Balance 1368 / 1368 480 / 480
Physical Exam
Physical Exam
HEENT: Anicteric
Cardiology: Normal Sinus Rhythm
Pulmonary: Clear
GI: Soft, Distended, Non Tender and Other (Hypoactive bowel sounds)
Neuro: Non Focal
[2025-01-27] MEDS: KCL 270 MEQ IV (12:29)
--- NOTE | 2025-01-27 14:00 | W.PN.HOSP.TC ---
Today's Communication/Plan
-
see note
Assessment / Plan
Assessment / Plan
CT a/p w/wo IV contrast
No aortic aneurysm or dissection.
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
No venous phase provided, therefore, cannot assess for venous patency.
Persistent bowel wall thickening. Moderate to advanced bowel thickening involving the proximal to mid jejunum in the left abdomen, though there is also mild wall thickening involving mid to distal ileum. There may also be mild long segment wall
thickening involving the transverse colon through sigmoid colon, though wall thickness may be accentuated by underdistention. There is also mesenteric soft tissue stranding/edema as well as ascites. Exact etiology uncertain. Possibly infectious or
inflammatory. Ischemic etiology may also be considered.
The remainder the examination is stable with findings as described.
The examination was performed after-hours on an emergency basis, with initial preliminary interpretation provided by [facility].
1. Sepsis - POA
Acute entero-colitis - infectious vs ischemic
- Patient initially presented for hematemesis and blood in stool
- CT abdomen pelvis at admission showing enteritis and diverticulitis. Repeat CT abdomen pelvis report as above with diffuse segments of small bowel and large intestine involved in possible infectious vs inflammatory vs ischemic response
- CTA abd was moderate stenosis of celiac/SMA
- Infectious workup has been negative including norovirus/C. difficile. Final stool culture report pending
- Currently being maintained on empiric Zosyn
- Upper GI series did not show any signs of small bowel obstruction.
- GI also checking for fecal calprotectin to rule out any inflammatory bowel disease
2. GI bleed
- Hematemesis and some reported blood in stool at admission
- Hemoglobin remains stable
- Continues to report melena,likely old blood coming out as Hbg remains stable
- GI following and holding on doing EGD
3. Episodic nausea
Paraesophageal hernia
- Patient have large paraesophageal hernia and possibly aggravating symptoms of nausea
- Also patient current intestinal imaging findings might also adding to the issue
- Upper GI series did not show any signs of obstruction
- Trial of scheduled Reglan
4. Hypothyroidism
- Maintained on levothyroxine
5. HLD
- hold statin
6. Hypokalemia
- replete oral and IV prn
DVT ppx: SCDs
Code: Full
Anticipated Discharge: 24 - 48 hours
Subjective/Interval History
-
Date of Service: January 27, 2025
continues to have abd pain
continues to feel nauseous
Objective Data
-
Labs:
Laboratory Results
01/27/25
06:19
WBC 16.6 H
Hgb 10.9 L
Hct 32.7 L
Plt Count 282 D
Sodium 138
Potassium 3.1 L
Chloride 107
Carbon Dioxide 26
BUN 11
Creatinine 0.6
Glucose 85
Calcium 7.1 L
Vital Signs:
Vital Signs
Temp Pulse Resp BP Pulse Ox
98.6 F 66 18 146/67 96
01/27/25 07:45 01/27/25 07:45 01/27/25 07:45 01/27/25 07:45 01/27/25 07:45
I&O
01/26/25 01/27/25 01/28/25
06:59 06:59 06:59
Intake Total 1368 / 1368 780 / 780
Balance 1368 / 1368 780 / 780
Review of Systems
-
Respiratory: Reports No Symptoms
Cardiac: Reports No Symptoms
Abdomen/GI: Reports No Symptoms
Physical Exam
-
General: No Apparent Distress
Respiratory: Wheezes
GI: Soft and Nontender
Neuro: Awake, Alert and AO x 3
Psych: Calm
[2025-01-27] MEDS: REGLAN 5 MG IV ×2 (14:36→21:28)
[2025-01-27 15:25] VITALS: BP 140/80
[2025-01-27] MEDS: LOVENOX 40 MG SC (17:16)
[2025-01-27] MEDS: ZOSYN IV (18:09)
[2025-01-27 23:50] VITALS: BP 99/51
[2025-01-28] MEDS: ZOSYN 50 IV ×5 (00:19→23:56)
--- NOTE | 2025-01-28 04:59 | PTCARENOTE ---
pt had small loose BM however missed the hat for hem test.
[2025-01-28] MEDS: REGLAN 5 MG IV ×3 (05:32→21:14)
[2025-01-28] MEDS: SYNTHROID 75 MCG PO (05:32)
[2025-01-28 06:13] LABS: Hematocrit 34.2 % (37.0-47.0); Hemoglobin 10.9 g/dL (12.0-16.0); Mean Corp Hgb Conc. 31.9 g/dL (33.0-37.0); Mean Corpuscular Volume 94.2 fL (81.0-99.0); Platelet Count 333 10^3/uL (130-400); Red Cell Dist. Width 13.2 % (11.5-14.5)
[2025-01-28 06:34] LABS: Blood Urea Nitrogen 11 mg/dl (7-17); Calcium 7.3 mg/dl (8.4-10.2); Carbon Dioxide 27 mmol/L (22-30); Chloride 106 mmol/L (98-107); Estimated Creatinine Clearance 67 ml/min; Glucose 85 mg/dl (70-99); Potassium 3.5 mmol/L (3.5-5.1); Sodium 136 mmol/L (135-145); eGFR > 60.00
[2025-01-28 07:40] VITALS: BP 105/51
[2025-01-28] MEDS: OMNIPAQUE 50 ML PO (07:46)
[2025-01-28] MEDS: PROTONIX IV 40 MG IV ×2 (07:48→21:11)
[2025-01-28] MEDS: NSS (PRESERVATIVE FREE) 10 ML IV ×2 (07:48→21:11)
--- NOTE | 2025-01-28 11:58 | W.PN.GS2 ---
Today's Communication / Plan
-
Trial FLD
IV abx
Assessment / Plan
-
79 yo F with a PMH of GERD, HLD, hypothyroidism, and chronic constipation who presented with 4 days of abdominal discomfort, nausea, vomiting.
CT abdomen and pelvis 01/22 with IV contrast with thickening of small bowel in the jejunum and distal ileum with some mesenteric stranding. Some free fluid and possible short segment of sigmoid diverticulitis. No free air.
Repeat CT (angio this time) with persistent small bowel wall thickening and now possible thickening of the distal transverse colon to the sigmoid colon.
AFVSS, clinically improving with resolution of pain and passage of flatus and stools
No further tarry stools, continues with green-brown liquid stools
Stool cultures pending. C-diff and norovirus negative
WBC trending up. Following for possible ischemia versus enterocolitis. Clinically improving but slowly.
Rpt CT today with improvement in colon wall thickening, proximal jejunum and distal ileum appear about the same, stomach within PEH appears slightly improved by my interpretation; Given the distribution, favor infectious/inflammatory etiology over
ischemic. PO contrast reaches the rectum
Plan:
-- OK to adv to fulls, would not advance diet further
-- Abx: Zosyn
-- GI following
-- DVT: Lovenox, SCDs
Subjective Data
-
Date of Service: January 28, 2025
AFVSS, feeling about the same though reports pain has resolved and nausea improved, now with passage of flatus and liquid stool
Objective Data
-
Intake and Output
01/27/25 01/28/25 01/29/25
06:59 06:59 06:59
Intake Total 1090 / 1090
Balance 1090 / 1090
Intake:
Oral fluids 640 / 640
IV piggybacks 450 / 450
Other:
Number of approximated MODERATE 1 3
amounts of urine
Number of unmeasured liquid
stools
Rectum 1
Vital Signs
Temp Pulse Resp BP Pulse Ox
98.3 F 84 16 105/51 95
01/28/25 07:40 01/28/25 07:40 01/28/25 07:40 01/28/25 07:40 01/28/25 07:40
Lab Results
01/28/25 05:57
01/28/25 05:57
Calcium 7.3 mg/dl (8.4-10.2) L 01/28/25 05:57
Total Bilirubin 0.7 mg/dl (0.2-1.3) D 01/24/25 13:27
Direct Bilirubin 0.4 mg/dl (0.0-0.4) 01/24/25 13:27
AST 25 U/L (14-36) 01/24/25 13:27
ALT 17 U/L (0-35) 01/24/25 13:27
Alkaline Phosphatase 62 U/L (38-126) 01/24/25 13:27
Total Protein 5.6 g/dl (6.3-8.2) L 01/24/25 13:27
Albumin 2.7 g/dl (3.5-5.0) L 01/24/25 13:27
Physical Exam
-
Gen: NAD
Abd: soft, nt, distended
Patient has a espana catheter: No
Patient has a central line: No
--- NOTE | 2025-01-28 12:35 | W.PN.HOSP.TC ---
Today's Communication/Plan
-
see note
Assessment / Plan
Assessment / Plan
CT a/p w/wo IV contrast
No aortic aneurysm or dissection.
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
No venous phase provided, therefore, cannot assess for venous patency.
Persistent bowel wall thickening. Moderate to advanced bowel thickening involving the proximal to mid jejunum in the left abdomen, though there is also mild wall thickening involving mid to distal ileum. There may also be mild long segment wall
thickening involving the transverse colon through sigmoid colon, though wall thickness may be accentuated by underdistention. There is also mesenteric soft tissue stranding/edema as well as ascites. Exact etiology uncertain. Possibly infectious or
inflammatory. Ischemic etiology may also be considered.
The remainder the examination is stable with findings as described.
The examination was performed after-hours on an emergency basis, with initial preliminary interpretation provided by [facility].
CT a/p w IV/oral contrast
Severe bowel wall thickening of a segment of the proximal jejunum, similar compared to the CT abdomen/pelvis from 01/23/2025. Improvement of jejunal bowel wall thickening further distally. Increased moderate to severe wall thickening of a long
segment of the terminal ileum. Stable moderate wall thickening of the sigmoid colon. These findings may be infectious/inflammatory or ischemic. Cholelithiasis. Mild abdominopelvic ascites.
Small bilateral pleural effusions. Moderate to large hiatal hernia.
1. Sepsis - POA
Acute entero-colitis - infectious vs ischemic
- Patient initially presented for hematemesis and blood in stool
- CT abdomen pelvis at admission showing enteritis and diverticulitis. Repeat CT abdomen pelvis report as above with diffuse segments of small bowel and large intestine involved in possible infectious vs inflammatory vs ischemic response
- CTA abd was moderate stenosis of celiac/SMA
- Infectious workup has been negative including norovirus/C. difficile. Final stool culture report pending
- Upper GI series did not show any signs of small bowel obstruction.
- GI also checking for fecal calprotectin to rule out any inflammatory bowel disease
- Repeat CT abdomen pelvis showing changes of inflammation improved in some segment and pronounced in ileum.
- Have slow uptake in WBC count, maintained on Zosyn for now
- Trailing full liquid diet
- Will eventually require MRI or CT enterography on outpatient basis
2. GI bleed
- Hematemesis and some reported blood in stool at admission
- Hemoglobin remains stable
- Continues to report melena at times,likely old blood coming out as Hbg remains stable
- GI following and holding on doing EGD
3. Episodic nausea
Paraesophageal hernia
- Patient have large paraesophageal hernia and possibly aggravating symptoms of nausea
- Also patient current intestinal imaging findings might also adding to the issue
- Upper GI series did not show any signs of obstruction
- Patient nausea better controlled with scheduled Reglan, continue
4. Hypothyroidism
- Maintained on levothyroxine
5. HLD
- hold statin
6. Hypokalemia
- replete oral and IV prn
7. Iatrogenic volume overload
- Complaining minimal dyspnea and lower extremity swelling
- Giving IV Lasix 20 mg one-time dose today
DVT ppx: SCDs
Code: Full
Care plan discussed with GI/general surgery
Total time spent : 55 mins
Anticipated Discharge: 24 - 48 hours
Subjective/Interval History
-
Date of Service: January 28, 2025
Nausea somewhat improved
No reported significant abdominal pain
Complaining some dyspnea and lower extremity swelling
Objective Data
-
Labs:
Laboratory Results
01/28/25
05:57
WBC 17.9 H
Hgb 10.9 L
Hct 34.2 L
Plt Count 333
Sodium 136
Potassium 3.5
Chloride 106
Carbon Dioxide 27
BUN 11
Creatinine 0.6
Glucose 85
Calcium 7.3 L
Vital Signs:
Vital Signs
Temp Pulse Resp BP Pulse Ox
98.3 F 84 16 105/51 95
01/28/25 07:40 01/28/25 07:40 01/28/25 07:40 01/28/25 07:40 01/28/25 12:00
I&O
01/27/25 01/28/25 01/29/25
06:59 06:59 06:59
Intake Total 1090 / 1090
Balance 1090 / 1090
Review of Systems
-
Respiratory: Reports No Symptoms
Cardiac: Reports No Symptoms
Abdomen/GI: Reports Nausea
Physical Exam
-
General: No Apparent Distress
HEENT: Negative Oxygen
Respiratory: Clear to Auscultation
GI: Soft and Nontender
Musculoskeletal: Edema, Right Lower Extrem and Edema, Left Lower Extrem
Neuro: Awake, Alert and AO x 3
Psych: Calm
--- NOTE | 2025-01-28 13:19 | W.PN.GI.CBS2 ---
Today's Communication / Plan
-
- On Clear liquids, OK to advance to full liquid diet as tolerated.
-Continue antiemetics.-Continue pantoprazole 40 mg IV twice daily
-Increase in WBC count, afebrile, On Zosyn. CRP pending
- Stool for c diff, cx, noro and WBC all negative.Await stool Robb Pro
Enterocolitis still could be infectious cannot r/o inflammatory etiology.
Eventually will need EGD/colonoscopy to evaluate- we can set up as OP once acute issues resolve.
Will monitor clinically, will follow.
Assessment / Plan
-
79-year-old female with past medical history of hyperlipidemia, hypothyroidism, GERD, chronic constipation and osteoporosis presents to the emergency room with 2-day history of nausea followed by fever, abdominal pain then vomiting dark material
bringing her to the emergency room. Asked to evaluate for the same. Started initially with nausea followed by fever at home. Proceeded to have abdominal cramping passing hard ball-like stools and eventually diarrhea. Vomited 'dark-colored
material'. On presentation WBC 16.6 currently 18.8, lactic acid was 2.8 currently 1.8, D-dimer 15.87, hemoglobin stable currently 13.5 down from 14.6. BUN [address] angio of the abdomen with and without shows moderate stenosis at
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 Persistent bowel wall thickening moderate to advanced bowel wall thickening involving the proximal to mid jejunum in the left abdomen. Though there is also mild
wall thickening involving the mid to distal ileum. There may also be mild long segment wall thickening involving the transverse colon through the sigmoid colon though this wall thickness may be accentuated by underdistention. There is also
mesenteric soft tissue stranding/edema as well as ascites. Patient with mild diffuse tenderness of the abdomen. Significant nausea. Has not passed flatus and has only had 1 bowel movement since arrival. Remains afebrile. Continues on
ceftriaxone and Flagyl. Has been placed on a pantoprazole drip. She is also NPO.
Impression
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
sepsis
dark/bloody stool-> now green/brown
CT scan A/P with IV/PO contrast 01/28/25-Severe bowel wall thickening of a segment of the proximal jejunum, similar compared to the CT abdomen/pelvis from 01/23/2025. Improvement of jejunal bowel wall thickening further distally. Increased moderate
to severe wall thickening of a long segment of the terminal ileum. Stable moderate wall thickening of the sigmoid colon. These findings may be infectious/inflammatory or ischemic. Cholelithiasis.
Mild abdominopelvic ascites.Moderate to large hiatal hernia.
Plan:
- On Clear liquids, OK to advance to full liquid diet as tolerated.
-Continue antiemetics.-Continue pantoprazole 40 mg IV twice daily
-Increase in WBC count, afebrile, On Zosyn. CRP pending
- Stool for c diff, cx, noro and WBC all negative.Await stool Robb Pro
Enterocolitis still could be infectious cannot r/o inflammatory etiology.
Eventually will need EGD/colonoscopy to evaluate- we can set up as OP once acute issues resolve.
Will monitor clinically, will follow.
Subjective
Subjective
Date of Service: January 28, 2025
Patient feels bloated still but having bowel movements, loose liquid stool, nonbloody and the dark stool she initially had resolved. No fevers or chills
Leukocytosis noted again but no fevers or chills
Objective
Data Reviewed
Laboratory Data:
Laboratory Results
01/28/25 05:57
01/28/25 05:57
Laboratory Results
Total Bilirubin 0.7 mg/dl (0.2-1.3) D 01/24/25 13:27
AST 25 U/L (14-36) 01/24/25 13:27
ALT 17 U/L (0-35) 01/24/25 13:27
Alkaline Phosphatase 62 U/L (38-126) 01/24/25 13:27
Lipase 27 U/L (23-300) 01/22/25 18:57
Vital Signs and I&O:
Vital Signs
Temp Pulse Resp BP Pulse Ox
98.3 F 84 16 105/51 95
01/28/25 07:40 01/28/25 07:40 01/28/25 07:40 01/28/25 07:40 01/28/25 12:00
I&O
01/27/25 01/28/25 01/29/25
06:59 06:59 06:59
Intake Total 1090 / 1090
Balance 1090 / 1090
Physical Exam
Physical Exam
GI: Soft, Non Distended and Non Tender
[2025-01-28] MEDS: LASIX 20 MG IV (13:36)
[2025-01-28 14:05] LABS: C-Reactive Protein 145.00 mg/L (0.0-10.00)
[2025-01-28 15:20] VITALS: BP 119/56
[2025-01-28] MEDS: LOVENOX 40 MG SC (17:33)
[2025-01-28 23:27] VITALS: BP 126/74
[2025-01-29] MEDS: ZOSYN 50 IV ×2 (05:11→11:33)
[2025-01-29] MEDS: SYNTHROID 75 MCG PO (05:11)
[2025-01-29] MEDS: REGLAN 5 MG IV ×2 (05:11→13:03)
[2025-01-29 07:25] VITALS: BP 103/59
[2025-01-29] MEDS: NSS (PRESERVATIVE FREE) 10 ML IV (08:40)
[2025-01-29] MEDS: PROTONIX IV 40 MG IV (08:40)
--- NOTE | 2025-01-29 10:40 | CM ---
Reviewed the chart notes and spoke with the patient and her spouse at the bedside. Patient on full liquid diet. Discussed VN services. Patient declined. Per patient, she is ambulating ad brennon in the room. CM continues to be available to
patient/family and is monitoring medical plan for needs at discharge.
Plan: Discharge to home when medically stable.
--- NOTE | 2025-01-29 11:42 | W.PN.GS2 ---
Today's Communication / Plan
-
`
Assessment / Plan
-
79 yo F with a PMH of GERD, HLD, hypothyroidism, and chronic constipation who presented with 4 days of abdominal discomfort, nausea, vomiting.
CT imaging suggestive of enteritis affecting jejunum and distal ileum. No signs of bowel compromise or threat or advanced ischemia.
Clinically improving with supportive care
Stool cultures negative to date for specific infectious pathogen.
Enterocolitis -inflammatory versus infectious etiologies; less likely ischemia given distribution
Plan: Agree with dietary advancement as tolerated but caution patient to do smaller portions and easier to digest foods
GI and hospitalist following/managing
Signing off, please reach out if can be of further assistance with care
Subjective Data
-
Date of Service: January 29, 2025
Patient seen and examined. at bedside.
Reviewed with hospitalist as well.
Patient reports significant improvement in abdominal pain which is now nearly resolved.
Appetite has not yet returned but no nausea or vomiting.
Tolerating through full liquid diet without exacerbation of symptoms.
Passing flatus and loose bowel movements continue.
Objective Data
-
Intake and Output
01/28/25 01/29/25 01/30/25
06:59 06:59 06:59
Intake Total 1090 / 1090 1520 / 1520
Balance 1090 / 1090 1520 / 1520
Intake:
Oral fluids 640 / 640 1320 / 1320
IV piggybacks 450 / 450 200 / 200
Other:
Number of approximated MODERATE 3 4
amounts of urine
Number of unmeasured liquid
stools
Rectum 1 2
Vital Signs
Temp Pulse Resp BP Pulse Ox
98.3 F 85 16 103/59 96
01/29/25 07:25 01/29/25 07:25 01/29/25 07:25 01/29/25 07:25 01/29/25 07:25
Lab Results
01/28/25 05:57
Calcium 7.3 mg/dl (8.4-10.2) L 01/28/25 05:57
Total Bilirubin 0.7 mg/dl (0.2-1.3) D 01/24/25 13:27
Direct Bilirubin 0.4 mg/dl (0.0-0.4) 01/24/25 13:27
AST 25 U/L (14-36) 01/24/25 13:27
ALT 17 U/L (0-35) 01/24/25 13:27
Alkaline Phosphatase 62 U/L (38-126) 01/24/25 13:27
Total Protein 5.6 g/dl (6.3-8.2) L 01/24/25 13:27
Albumin 2.7 g/dl (3.5-5.0) L 01/24/25 13:27
Physical Exam
-
NAD AAO x 3
ABD: Soft, protuberant but not tensely distended. Denies tenderness during palpation. No rebound rigidity or guarding
[2025-01-29 11:46] LABS: Hematocrit 36.1 % (37.0-47.0); Hemoglobin 11.8 g/dL (12.0-16.0); Mean Corp Hgb Conc. 32.7 g/dL (33.0-37.0); Mean Corpuscular Volume 94.5 fL (81.0-99.0); Platelet Count 408 10^3/uL (130-400); Red Cell Dist. Width 13.4 % (11.5-14.5)
--- NOTE | 2025-01-29 13:17 | W.PN.HOSP.TC ---
Today's Communication/Plan
-
d/c planning
Assessment / Plan
Assessment / Plan
CT a/p w/wo IV contrast
No aortic aneurysm or dissection.
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
No venous phase provided, therefore, cannot assess for venous patency.
Persistent bowel wall thickening. Moderate to advanced bowel thickening involving the proximal to mid jejunum in the left abdomen, though there is also mild wall thickening involving mid to distal ileum. There may also be mild long segment wall
thickening involving the transverse colon through sigmoid colon, though wall thickness may be accentuated by underdistention. There is also mesenteric soft tissue stranding/edema as well as ascites. Exact etiology uncertain. Possibly infectious or
inflammatory. Ischemic etiology may also be considered.
The remainder the examination is stable with findings as described.
The examination was performed after-hours on an emergency basis, with initial preliminary interpretation provided by [facility].
CT a/p w IV/oral contrast
Severe bowel wall thickening of a segment of the proximal jejunum, similar compared to the CT abdomen/pelvis from 01/23/2025. Improvement of jejunal bowel wall thickening further distally. Increased moderate to severe wall thickening of a long
segment of the terminal ileum. Stable moderate wall thickening of the sigmoid colon. These findings may be infectious/inflammatory or ischemic. Cholelithiasis. Mild abdominopelvic ascites.
Small bilateral pleural effusions. Moderate to large hiatal hernia.
1. Sepsis - POA
Acute entero-colitis - infectious vs ischemic
- Patient initially presented for hematemesis and blood in stool
- CT abdomen pelvis at admission showing enteritis and diverticulitis. Repeat CT abdomen pelvis report as above with diffuse segments of small bowel and large intestine involved in possible infectious vs inflammatory vs ischemic response
- CTA abd was moderate stenosis of celiac/SMA
- Infectious workup has been negative including norovirus/C. difficile. Final stool culture report pending
- Upper GI series did not show any signs of small bowel obstruction.
- GI also checking for fecal calprotectin to rule out any inflammatory bowel disease
- Repeat CT abdomen pelvis showing changes of inflammation improved in some segment and pronounced in ileum.
- WBC remains stable. CRP of 145 despite 5 days of abx
2. GI bleed
- Hematemesis and some reported blood in stool at admission
- Hemoglobin remains stable
- Continues to report melena at times,likely old blood coming out as Hbg remains stable
- GI following and holding on doing EGD
3. Episodic nausea - Improved
Paraesophageal hernia
- Patient have large paraesophageal hernia and possibly aggravating symptoms of nausea
- Upper GI series did not show any signs of obstruction
- Patient nausea better controlled with scheduled Reglan, continue
4. Hypothyroidism
- Maintained on levothyroxine
5. HLD
- hold statin
6. Hypokalemia
- replete oral and IV prn
7. Iatrogenic volume overload
- Complaining minimal dyspnea and lower extremity swelling
- Giving IV Lasix 20 mg one-time dose today
DVT ppx: SCDs
Code: Full
Anticipated Discharge: Today
Subjective/Interval History
-
Date of Service: January 29, 2025
Denies of any abdominal pain
Nausea significantly improved
No other reported problems
Objective Data
-
Labs:
Laboratory Results
01/29/25
11:21
WBC 17.0 H
Hgb 11.8 L
Hct 36.1 L
Plt Count 408 H D
Vital Signs:
Vital Signs
Temp Pulse Resp BP Pulse Ox
98.3 F 85 16 103/59 96
01/29/25 07:25 01/29/25 07:25 01/29/25 07:25 01/29/25 07:25 01/29/25 07:25
I&O
01/28/25 01/29/25 01/30/25
06:59 06:59 06:59
Intake Total 1090 / 1090 1520 / 1520
Balance 1090 / 1090 1520 / 1520
Review of Systems
-
Respiratory: Reports No Symptoms
Cardiac: Reports No Symptoms
Abdomen/GI: Reports No Symptoms
Physical Exam
-
General: No Apparent Distress
HEENT: Negative Oxygen
GI: Soft and Nontender
Musculoskeletal: Edema, Right Lower Extrem and Edema, Left Lower Extrem
Neuro: Awake, Alert and AO x 3
Psych: Calm
[2025-01-29 15:19] VITALS: BP 128/77
[2025-01-29 17:14] LABS: Calprotectin, Fecal 379 ug/g (<=49)
[2025-01-29] MEDS: LOVENOX 40 MG SC (17:26)
--- NOTE | 2025-01-29 18:21 | W.PN.GI.CBS2 ---
Today's Communication / Plan
-
Plan:
Enterocolitis still could be infectious cannot r/o inflammatory etiology.
- Tolerating low residue diet without significant pain
-Increase in WBC count, afebrile, On Zosyn. CRP elevated at 145
- Stool for c diff, cx, noro and WBC all negative.fecal calprotectin elevated at 379
As per patient, symptoms have been going on for few months now including the bloating.
Avoid NSAIDs, low residue and low lactose diet
If any evidence of overt bleeding including black stool, maroon stool or bright blood, she needs to come to the emergency room immediately or if she has significant abdominal pain, she is to return to the emergency room immediately.
For now she has an appointment with GI office, Dr. Lane on 03/25/2025, I did suggest that patient call and move up her appointment and notified GI office regarding the same.
She does have large hiatal hernia, small meals, continue PPI
Eventually will need EGD/colonoscopy
Assessment / Plan
-
79-year-old female with past medical history of hyperlipidemia, hypothyroidism, GERD, chronic constipation and osteoporosis presents to the emergency room with 2-day history of nausea followed by fever, abdominal pain then vomiting dark material
bringing her to the emergency room. Asked to evaluate for the same. Started initially with nausea followed by fever at home. Proceeded to have abdominal cramping passing hard ball-like stools and eventually diarrhea. Vomited 'dark-colored
material'. On presentation WBC 16.6 currently 18.8, lactic acid was 2.8 currently 1.8, D-dimer 15.87, hemoglobin stable currently 13.5 down from 14.6. BUN [address] angio of the abdomen with and without shows moderate stenosis at
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 Persistent bowel wall thickening moderate to advanced bowel wall thickening involving the proximal to mid jejunum in the left abdomen. Though there is also mild
wall thickening involving the mid to distal ileum. There may also be mild long segment wall thickening involving the transverse colon through the sigmoid colon though this wall thickness may be accentuated by underdistention. There is also
mesenteric soft tissue stranding/edema as well as ascites. Patient with mild diffuse tenderness of the abdomen. Significant nausea. Has not passed flatus and has only had 1 bowel movement since arrival. Remains afebrile. Continues on
ceftriaxone and Flagyl. Has been placed on a pantoprazole drip. She is also NPO.
Impression
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
sepsis
dark/bloody stool-> now green/brown
CT scan A/P with IV/PO contrast 01/28/25-Severe bowel wall thickening of a segment of the proximal jejunum, similar compared to the CT abdomen/pelvis from 01/23/2025. Improvement of jejunal bowel wall thickening further distally. Increased moderate
to severe wall thickening of a long segment of the terminal ileum. Stable moderate wall thickening of the sigmoid colon. These findings may be infectious/inflammatory or ischemic. Cholelithiasis.
Mild abdominopelvic ascites.Moderate to large hiatal hernia.
Plan:
Enterocolitis still could be infectious cannot r/o inflammatory etiology.
- Tolerating low residue diet without significant pain
-Increase in WBC count, afebrile, On Zosyn. CRP elevated at 145
- Stool for c diff, cx, noro and WBC all negative.fecal calprotectin elevated at 379
As per patient, symptoms have been going on for few months now including the bloating.
Avoid NSAIDs, low residue and low lactose diet
If any evidence of overt bleeding including black stool, maroon stool or bright blood, she needs to come to the emergency room immediately or if she has significant abdominal pain, she is to return to the emergency room immediately.
For now she has an appointment with GI office, Dr. Lane on 03/25/2025, I did suggest that patient call and move up her appointment and notified GI office regarding the same.
She does have large hiatal hernia, small meals, continue PPI
Eventually will need EGD/colonoscopy
Subjective
Subjective
Date of Service: January 29, 2025
Patient reports abdominal pain is improved significantly, having loose stool. Tolerating low residue diet with with some bloating but no bleeding
Objective
Data Reviewed
Laboratory Data:
Laboratory Results
01/29/25 11:21
01/28/25 05:57
Laboratory Results
Total Bilirubin 0.7 mg/dl (0.2-1.3) D 01/24/25 13:27
AST 25 U/L (14-36) 01/24/25 13:27
ALT 17 U/L (0-35) 01/24/25 13:27
Alkaline Phosphatase 62 U/L (38-126) 01/24/25 13:27
Lipase 27 U/L (23-300) 01/22/25 18:57
Vital Signs and I&O:
Vital Signs
Temp Pulse Resp BP Pulse Ox
98.0 F 98 18 128/77 97
01/29/25 15:19 01/29/25 15:19 01/29/25 15:19 01/29/25 15:19 01/29/25 15:19
I&O
01/28/25 01/29/25 01/30/25
06:59 06:59 06:59
Intake Total 1090 / 1090 1520 / 1520 240 / 240
Balance 1090 / 1090 1520 / 1520 240 / 240
Physical Exam
Physical Exam
GI: Soft and Non Tender (Mildly distended)
--- NOTE | 2025-01-30 13:39 | W.DCSUMMARY ---
Discharge Summary
Discharge Data
Date of Admission: 01/23/25
Date of Discharge: 01/30/25
-
Pending Results: Yes
Additional Pending Results:
Stool calprotectin
Hospital Course
Discharging Physician : Dr Mario Ramirez
Disposition : To home
Primary care physician : Dr Howard Peoples
Principal Discharge diagnosis :
Sepsis
Acute enterocolitis
Gastrointestinal bleed
Episodic nausea/vomiting
Hypokalemia
Iatrogenic volume overload
Chronic Discharge diagnosis :
Hypothyroidism
Hospital Course :
Patient is a 79-year-old male with no mentioned past medical history came to ER with new onset abdominal pain nausea and vomiting. Patient have problem with intermittent constipation and usually takes laxative which patient tried without much
success in symptom relief. See CT abdomen pelvis was done in ER which showed patchy involvement of gut including some sections of jejunum distal ileum and part of colon involved in inflammatory changes. Patient was also reporting some blood in
stool/melena. GI was involved in care and based on initial presentation patient was started on IV antibiotics. Stool test were sent for infectious etiology which later came back negative. Patient had a slow improvement in symptoms and required
repeat [address] scan all showing similar findings. CTA was done as well to rule out any ischemia and there was no significant critical narrowing noted besides some moderate stenosis of celiac/SMA. As patient was also having persistent nausea and
upper GI series was done which did not show any small bowel obstruction. General surgery was involved in care as patient has known to have a paraesophageal hernia. No surgical intervention was required at this hospitalization. Patient had slow
improvement in symptoms. Patient did not have any significant drop in hemoglobin. GI recommended for patient to have an outpatient EGD/colonoscopy and possible CT enterography after finishing course of antibiotic. Test for inflammatory bowel
disease were sent including CRP/stool calprotectin which are pending at time of discharge. Patient is planned to follow-up with GI in the office within 4 to 6 weeks
Important imaging findings :
None
Procedure findings :
None
Discharge Plan
-
Patient Disposition: Home (Routine Discharge)
Discharge Diagnosis/Procedures: Diffuse entero-colitis, Episodic nausea
Condition: Fair
Diet: Other diet
Additional Diets: Low residue diet
Activity: As tolerated
Driving Restrictions: As prior to admission
Bathing Restrictions: OK to Shower
Referrals:
Howard Peoples MD [Family Provider, Internal Medicine] - in one week
Derek Lane MD [Active, Gastroenterology]
Prescriptions:
New
cefdinir 300 mg capsule
300 mg PO BID 5 Days Qty: 10 0RF
metronidazole 500 mg tablet
500 mg PO Q8H Qty: 15 0RF
Continued
atorvastatin 20 mg tablet
20 mg PO HS
levothyroxine [Synthroid] 75 mcg tablet
75 mcg PO DAILY
pantoprazole 40 mg tablet,delayed release (DR/EC)
40 mg PO DAILY
Discharge Orders:
Discharge Patient (As Directed); Ordered 01/29/25
Ordered By: Mario Ramirez
Discharge Date and Time
Discharge Date/Time: 01/29/25 18:07
Print Language: ROMANSH
== END 2025-01-29 18:07 | disposition home or self-care (01) | DRG 872 ==
LOC: 2 SOUTH 03:29
PROVIDERS: Emergency Medicine; Internal Medicine; Nurse Practitioner; Registered Nurse; ADMITTING PHYSICIAN Internal Medicine; ATTENDING PHYSICIAN Hospitalist; CONSULT PHYSICIAN Internal Medicine Gastroenterology; CONSULT PHYSICIAN Surgery; EMERGENCY PHYSICIAN Emergency Medicine; FAMILY PHYSICIAN Internal Medicine
DX: A41.9 Sepsis, unspecified organism (principal); K92.0 Hematemesis; K92.2 Gastrointestinal hemorrhage, unspecified; A09 Infectious gastroenteritis and colitis, unspecified; R18.8 Other ascites; Z87.891 Personal history of nicotine dependence; R65.20 Severe sepsis without septic shock; K44.9 Diaphragmatic hernia without obstruction or gangrene; Z79.899 Other long term (current) drug therapy
CPT/HCPCS: 74019; 74174; 74177; 74250; 80048; 80053; 81003; 81015; 82248; 83605; 83690; 83993; 85014; 85018; 85025; 85027; 85379; 86140; 86803; 86850; 86900; 86901; 87045; 87046; 87086; 87324; 87427; 87449; 87798; 89055; 93005; 96361; 96374; 97116; 97162; 97166; 97535; 99291; Q9967

== ENCOUNTER 2025-02-01 23:17 | Inpatient (IN) | payer OTHER, SELFPAY ==
[2025-02-01] VITALS (7 sets, daily range): BP systolic 107–128; BP diastolic 70–79
--- NOTE | 2025-02-01 19:10 | ED.GENMED ---
Addendum entered and electronically signed by Rodney Boo, 02/01/25 22:47:
Reviewed CT abdomen pelvis showing severe enteritis, labs showing leukocytosis, normal lactic acid
Original Note:
History of Present Illness
General
Chief Complaint: Abdominal Pain
Source: patient, spouse and family
Exam Limitations: none
Time Seen by Provider: 02/01/25 18:55
Nursing documentation reviewed up to this point in time: agreed with
History of Present Illness
History of Present Illness:
Note:
CHIEF COMPLAINT(S)
Weakness, abdominal distension, pain, blood in stool, and lack of energy.
HISTORY OF PRESENT ILLNESS
The patient is an 79-year-old female who was recently discharged from the hospital on , following a one-week hospitalization for reasons that were not specified during this encounter. The patient reports feeling persistently weak and lacking
energy since being discharged. She mentions that her abdominal distension is a chronic issue and not new today, though she is experiencing pain in her abdomen. The patient also reports that there was blood in her stool while hospitalized, but no
recent episodes since being home. She had a bowel movement today that was not normal and has not experienced any fevers. She has consumed only one nutritional supplement (Boost) today.
EXTERNAL RECORDS REVIEWED
The patients past hospitalization records and any prior blood tests will be examined to further assess her condition.
PHYSICAL EXAM
General: Alert, no acute distress.
Skin: Warm, dry.
Head: Normocephalic, atraumatic.
Neck: Supple, trachea midline.
Eye, Ears, Nose, Mouth, and Throat: Oral mucosa moist. Examination of the mouth shows moist oral mucosa.
Cardiovascular: Normal peripheral perfusion, No edema.
Respiratory: Respirations are non-labored.
Gastrointestinal: Abdomen is noted as distended, with pain primarily reported by the patient.
Back: Normal range of motion, Normal alignment.
Musculoskeletal: Normal range of motion, normal strength.
Neurological: Alert and oriented to person, place, time, and situation, No focal neurological deficit observed.
Psychiatric: Cooperative, appropriate mood & affect.
PLAN
1. Review the patient�s previous hospital records to determine her recent treatments and test results.
2. Blood tests will be conducted to evaluate her current condition.
3. An intravenous line will be inserted for further management and evaluation.
4. Address ongoing abdominal pain and weakness through appropriate investigations and management once test results are obtained.
DIFFERENTIAL DIAGNOSIS
The Differential Diagnosis includes, in no particular order and is not limited to:
1. Anemia secondary to blood loss or chronic disease
2. Gastrointestinal bleeding
3. Malnutrition or nutritional deficiency
4. Dehydration
5. Constipation or gastrointestinal obstruction
6. Chronic liver disease or ascites
7. Medication side effects
8. Electrolyte imbalances
9. Abdominal mass or malignancy
10. Depression or fatigue secondary to hospitalization.
EKG
My independent EKG interpretation is:
- Time of EKG: Not specified
- Rhythm: Not specified
- Heart Rate: 106 bpm
- SD Interval: Normal
- QRS Duration: Normal
- QT Interval: Normal
- [place]: Normal
- Abnormalities: None noted
Disposition:
SUMMARY OF ENCOUNTER
The patient, an 79-year-old female, presented to the emergency department with complaints of weakness, abdominal distension, abdominal pain, and blood in the stool. She was seen for evaluation following a recent hospitalization. The patient noted
chronic abdominal distension with acute pain and reported a prior episode of blood in stool during hospitalization. There was no recent fever. The main concerns were anemia and potential gastrointestinal issues, possibly related to the bleeding
episode or nutritional deficiencies. Management included evaluating recent treatment and ongoing symptoms, while discussions with gastroenterology and surgery (Dr. Centeno and Dr. Cordero) were initiated to determine appropriate next steps, taking
into account the potential for enteritis and the need for transference to hospice care. The patient was stabilized with appropriate interventions.
ASSESSMENT
Enteritis, etiology uncertain�potential ischemic versus infectious cause.
EMERGENCY TREATMENTS ADMINISTERED
Cefazolin and ibuprofen were administered to address suspected infection and pain.
MANAGEMENT OF THE PATIENTS CARE WAS DISCUSSED WITH
Consultations were made with Dr. Centeno (Gastroenterology) and Dr. Cordero (General Surgery) regarding further management of the suspected enteritis.
PLAN
The plan includes admission for ongoing evaluation and management, which may involve additional consultations and further testing once more information is gathered. Coordination with hospice care for supportive management is being considered.
INDEPENDENT REVIEW OF LABS AND INTERPRETATION OF TESTS
No specific lab tests were reviewed during this encounter.
PROCEDURES
None.
PATIENT EDUCATION AND COUNSELING
The patient and family were educated on the potential causes of her current symptoms, including enteritis, and the possible management options discussed with specialties.
MEDICAL DECISION MAKING
- Number and Complexity of Problems Addressed: Chronic conditions affecting care include anemia, abdominal distension, recent gastrointestinal bleeding, and weakness. The differential diagnosis included: anemia, gastrointestinal bleeding,
malnutrition or nutritional deficiency, dehydration, constipation or gastrointestinal obstruction, chronic liver disease or ascites, medication side effects, electrolyte imbalances, abdominal mass or malignancy, and depression or fatigue secondary
to hospitalization.
- Data:
Category 3: Discussion of management with gastroenterology (Dr. Centeno) and general surgery (Dr. Cordero) regarding the diagnosis and the need for further evaluation or potential surgical intervention.
- Risk: The possibility of significant complications persist due to underlying enteritis, which requires ongoing monitoring and treatment.
DIAGNOSIS
1. Enteritis, unspecified.
2. Weakness, unspecified [R53.1].
Past History
Past History
ED Past Medical History: Other (Reflux, thyroid, hypercholesterolemia)
ED Past Surgical History: None
Social History
Tobacco: Non-smoker
Alcohol: None
Drug: None
Personal:
Living: with family
Phy Exam
Physical Exam
Physical Exam:
.
Course
Orders/Labs/Results
Orders:
Orders
02/01/25 19:09
CT Abd/Pel (IV only)-[facility] only Urgent
Comment:
Reason For Exam: RLQ abd pain, abd distended
Cardiac Monitoring- Treatment ONCE
IV Insert/Care/Rem.- Treatment PRN
Pulse Ox/cont/shift [RESP] Stat
Quantity: 1
02/01/25 19:10
Electrocardiogram (*1) Stat
Reason for Study: Abdominal Pain
EKG- Treatment ONCE
02/01/25 19:38
Complete Blood Count/With Diff Urgent
Comprehensive Metabolic Panel Urgent
Lactic Acid Urgent
Lipase Urgent
02/01/25 22:22
Piperacillin/Tazo 4.5 Gram [Zosyn] 4.5 gram in 100 ml IV NOW
02/01/25 22:38
Lactated Ringers [Lr] 1,000 ml IV BOLUS
Abnormal Lab Results
02/01/25
19:38
WBC 21.5 H 10^3/uL
(4.8-10.8)
Plt Count 481 H 10^3/uL
(130-400)
Abs Immat Gran (auto) 0.6 H 10^3/uL
(0-0.05)
Absolute Neuts (auto) 18.9 H 10^3/uL
(1.4-6.5)
Absolute Lymphs (auto) 0.8 L 10^3/uL
(1.2-3.4)
Absolute Monos (auto) 0.9 H 10^3/uL
(0.1-0.6)
Immature Gran % 2.6 H %
(0-0.5)
Neutrophils % 87.9 H %
(42.2-75.2)
Lymphocytes % 3.9 L %
(20.5-51.1)
Sodium 133 L mmol/L
(135-145)
Potassium 3.4 L mmol/L
(3.5-5.1)
Creatinine 0.5 L mg/dL
(0.6-1.0)
Glucose 129 H mg/dl
(70-99)
Calcium 8.1 L mg/dl
(8.4-10.2)
Alkaline Phosphatase 33 L U/L
(38-126)
Total Protein 6.0 L g/dl
(6.3-8.2)
Albumin 2.8 L g/dl
(3.5-5.0)
02/01/25 19:38
02/01/25 19:38
Vital Signs
Initial and Last Documented VS:
Initial Vital Signs
Temp Pulse Resp BP Pulse Ox
97.5 F 121 18 107/72 94
02/01/25 18:19 02/01/25 18:19 02/01/25 18:19 02/01/25 18:19 02/01/25 18:19
Last Documented Vital Signs
Temp Pulse Resp BP Pulse Ox
97.5 F 106 22 125/73 94
02/01/25 18:19 02/01/25 21:30 02/01/25 21:30 02/01/25 21:00 02/01/25 21:30
*Pulse Oximetry
SaO2: 94
Oxygen Mode of Delivery: Room air
Patient hypoxic: no
*Critical Care Note
Total Time (30-74mins, 75-104mins- exclusive of procedures): Not Applicable
ED Attending Note
-
Portions of this chart may have been created with voice recognition software.� Occasional wrong word or��sound alike� substitutions may have occurred due to the inherent limitations of voice recognition software.
Discharge Plan
Departure
Patient Disposition: Admit
Date of Disposition: 02/01/25
Time of Disposition: 22:07
Admit to: Telemetry
Presentation/result/management discussed w/ accepting MD/DO: Hospitalist
Condition: Good
Discharge Problem:
Enteritis
Prescriptions:
No Action
atorvastatin 20 mg tablet
20 mg PO HS
levothyroxine [Synthroid] 75 mcg tablet
75 mcg PO DAILY
pantoprazole 40 mg tablet,delayed release (DR/EC)
40 mg PO DAILY
cefdinir 300 mg capsule
300 mg PO BID 5 Days Qty: 10 0RF
metronidazole 500 mg tablet
500 mg PO Q8H Qty: 15 0RF
Referrals:
Howard Peoples MD [Family Provider, Internal Medicine]
Interventions
Interventions:
*Risk Screen - Suicide Last Done: 02/01/25 18:19
*General Assessment Last Done: 02/01/25 18:19
*Neglect/Abuse Screening Last Done: 02/01/25 18:19
*ED- Fall Risk Assessment Last Done: 02/01/25 18:19
*ED COVID-19 Vaccine History Last Done: 02/01/25 18:19
*ED Influenza Vaccine History Last Done: 02/01/25 18:19
YV-Xrbmmi-Myvjvyypge Assessment Last Done: 02/01/25 19:26
Discharge Date and Time
Print Language: SWEDISH
[2025-02-01 19:44] LABS: Hematocrit 38.5 % (37.0-47.0); Hemoglobin 13.1 g/dL (12.0-16.0); Mean Corp Hgb Conc. 34.0 g/dL (33.0-37.0); Mean Corpuscular Volume 88.7 fL (81.0-99.0); Nucleated Red Blood Cells % 0 %; Platelet Count 481 10^3/uL (130-400); Red Cell Dist. Width 14.0 % (11.5-14.5)
[2025-02-01 20:17] LABS: ALT (SGPT) 17 U/L (0-35); AST (SGOT) 28 U/L (14-36); Albumin 2.8 g/dl (3.5-5.0); Alkaline Phosphatase 33 U/L (38-126); Blood Urea Nitrogen 11 mg/dl (7-17); Calcium 8.1 mg/dl (8.4-10.2); Carbon Dioxide 25 mmol/L (22-30); Chloride 102 mmol/L (98-107); Glucose 129 mg/dl (70-99); Lipase 105 U/L (23-300); Potassium 3.4 mmol/L (3.5-5.1); Sodium 133 mmol/L (135-145); Total Protein 6.0 g/dl (6.3-8.2); eGFR > 60.00
[2025-02-01] MEDS: ZOSYN 100 IV (22:52)
[2025-02-01] MEDS: LR 1000 IV (22:53)
--- NOTE | 2025-02-01 22:54 | HPS.HSE ---
Family Physician
-
Family Physician: Howard Peoples
Chief Complaint
-
abdominal pain
History of Present Illness
79-year-old female past medical history of celiac artery/superior mesenteric artery origin stenosis, paraesophageal hernia, hypothyroidism, hyperlipidemia, chronic constipation presenting with right lower quadrant abdominal pain today that was
severe and bloating after eating. Denies nausea or vomiting. She is having loose stools which are dark brown but not black. Denies fevers or chills. She also has a pain in her mid chest and burping. She denies any pain in her right lower
abdomen at this time.
Patient was recently admitted from 01/23 to 01/30 for abdominal pain nausea and vomiting. CT scan showed inflammation in sections of the jejunum, distal ileum and colon. Patient also had bloody stool. Patient was treated for infectious/ischemic
colitis with IV antibiotics. Stool test were negative. CT abdomen was performed showed moderate stenosis of celiac/SMA. Patient was seen by surgery due to known paraesophageal hernia. No surgery was recommended.
Patient was feeling pretty good upon discharge but states that she started feeling unwell the day after she went home.
She has some mild shortness of breath with exertion. She has lower extremity swelling which she developed during the recent hospitalization from IV fluids.
She denies smoking or alcohol use.
Medical History
Past Medical History
Past Medical History: Reports Other (celiac artery/superior mesenteric artery origin stenosis, paraesophageal hernia, hypothyroidism, hyperlipidemia, chronic constipation)
Past Surgical History: Reports None
Social History
Tobacco: Non-smoker
Alcohol: None
Drug: None
Family History
Family History: Not pertinent
Allergies / Home Medications
Allergies reflects when Allergies were last updated in [facility].
Home Medications with original date entered in [facility]
Allergy/Medication List:
Allergies
Allergy/AdvReac Type Severity Reaction Status Date / Time
Penicillins Allergy Unknown- Verified 02/01/25 18:23
tolerated
ampicillin/sulbactam
Home Medications
atorvastatin 20 mg tablet 20 mg PO HS High Cholesterol 01/23/25
levothyroxine 75 mcg tablet (Synthroid) 75 mcg PO DAILY Thyroid 01/23/25
pantoprazole 40 mg tablet,delayed release 40 mg PO DAILY Gastrointestinal Issue 01/23/25
cefdinir 300 mg capsule 300 mg PO BID 5 days #10 caps 01/29/25
metronidazole 500 mg tablet 500 mg PO Q8H #15 tabs 01/29/25
Review of Systems
-
History Source: Patient
A 12 point ROS was completed and negative except as noted: Yes
Constitutional: Reports No Symptoms
EENT: Reports No Symptoms
Respiratory: Reports No Symptoms
Cardiac: Reports No Symptoms
Abdomen/GI: Reports See HPI
: Reports No Symptoms
Musculoskeletal: Reports No Symptoms
Skin: Reports No Symptoms
Neurological: Reports No Symptoms
Endocrine: Reports No Symptoms
Hematologic/Lymphatic: Reports No Symptoms
Psych: Reports No Symptoms
Physical Exam
Vital Signs
Vital Signs
Temp Pulse Resp BP Pulse Ox
97.5 F 106 22 125/73 94
02/01/25 18:19 02/01/25 21:30 02/01/25 21:30 02/01/25 21:00 02/01/25 21:30
Physical Exam
General: Well Developed, Well Nourished and No Apparent Distress
HEENT: NormoCephalic, Moist mucous membranes and Atraumatic
Respiratory: Clear
Cardiac: S1/S2 and Regular Rhythm; No Murmur or Rub
GI: Soft, Non Tender, Non Distended and Normal Bowel Sounds; No Organomegaly
Rectal: Deferred by Provider
Musculoskeletal: No Clubbing, No Cyanosis and No Edema
Skin: No Rash
Neuro: Nonfocal/grossly intact
Laboratory Results
-
02/01/25 19:38
02/01/25 19:38
Laboratory Results
Lactic Acid 1.3 mmol/L (0.7-2.0) 02/01/25 19:38
Total Bilirubin 0.8 mg/dl (0.2-1.3) 02/01/25 19:38
AST 28 U/L (14-36) 02/01/25 19:38
ALT 17 U/L (0-35) 02/01/25 19:38
Alkaline Phosphatase 33 U/L (38-126) L 02/01/25 19:38
Lipase 105 U/L (23-300) 02/01/25 19:38
Data Reviewed
-
Lab Data: Labs Reviewed by me
Old Records: Reviewed
Impression/Plan
-
IMPRESSION:
PLAN:
# Severe diffuse enteritis through jejunal/ileal small bowel loops possibly ischemic versus infectious enteritis versus IBD versus vasculitis
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
-Leukocytosis
-Lactate normal
- CT abdomen pelvis shows severe diffuse enteritis with jejunal and ileal small bowel loops, severe stenosis greater than 70% in the proximal SMA, large paraesophageal hernia, moderate diverticulosis, cholelithiasis, small to moderate right and
small left pleural effusions, large left lower lobe airspace consolidation pneumonia versus atelectasis,
- N.p.o.
-IV fluids bolus given, hold further IV fluids given send iatrogenic volume overload from IV fluids
- Empiric Zosyn started
- GI consulted, outpatient EGD colonoscopy was recommended previously
- General Surgery consulted
Recent GI bleeding with hematemesis
- Appears to have resolved at this time
Recent iatrogenic volume overload
- Patient with mild shortness of with exertion, lower extremity edema from recent IV fluids
# Hypokalemia
- Replete potassium
Large paraesophageal hernia
- Previously upper GI series did not show any signs of obstruction
- Continue Protonix
Hypothyroidism
- Continue levothyroxine
Hyperlipidemia
- Continue statin
Chronic constipation
Full code
DVT prophylaxis�SCDs
N.p.o.
[2025-02-01] MEDS: KCL 270 MEQ IV (23:35)
[2025-02-01] MEDS: AMBIEN 5 MG PO (23:38)
[2025-02-02] VITALS (12 sets, daily range): BP systolic 103–138; BP diastolic 44–88
--- NOTE | 2025-02-02 00:35 | PTCARENOTE ---
Rec'd pt from ED at 0035; pt ambulated from stretcher to bed; AOx3; IVF per order; bed locked in lowest position; call prather within reach; care ongoing;
[2025-02-02] MEDS: ZOSYN 50 IV ×4 (04:27→23:15)
[2025-02-02] MEDS: SYNTHROID 75 MCG PO (05:39)
[2025-02-02 06:30] LABS: Hematocrit 38.1 % (37.0-47.0); Hemoglobin 12.1 g/dL (12.0-16.0); Mean Corp Hgb Conc. 31.8 g/dL (33.0-37.0); Mean Corpuscular Volume 94.8 fL (81.0-99.0); Platelet Count 484 10^3/uL (130-400); Red Cell Dist. Width 14.2 % (11.5-14.5)
--- NOTE | 2025-02-02 06:43 | CON.GI ---
Addendum entered and electronically signed by Claudia Centeno DO 02/02/25 12:42:
The patient was seen and examined by me independently in collaboration with the nurse practitioner.
Past medical history/social history/medications/allergies/family history reviewed.
Lab data and imaging data reviewed.
Aniyah Allen is an 79 y.o. female who returns to with recurrent abdominal pain, nause, vomiting and weakness, after being discharged on 01/30 with similar presentation, found to have enteritis. CT from last admission showed moderate SMA and
celiac artery stenosis, but clinically, she showed improvement and was discharged home, with main differential ddx infectious vs. ischemic vs. inflammatory. Repeat CT scan on current admission demonstrates severe diffuse enteritis throughout both
jejunal and ileal small bowel loops, large calcific atherosclerotic plaque at the origin of the SMA with >70% stenosis; calcific atherosclerotic plaque in the proixmal celiac artery causeing less than 50% diamater stenosis. Labs concerning for
leukocytosis of 24K.
Pain out of proportion to exam in conjunction with leukocytosis and imaging findings is extremely concerning for mesenteric ischemia.
Agree with vascular surgery consult. Very low suspicion that this represents inflammatory bowel disease.
If no vascular intervention, general surgery plans to perform diagnostic lap
Continue abx, NPO
GI will sign off. Please call back if we can be of assistance.
Original Note:
Consultation
-
Date/Time Consultation Requested: 02/01/25 1920
Date/Time Consultation Performed: 02/02/25 0640
Requesting Provider: Eleuterio Ireland MD
Performing Provider: VANCE Zhang, Abiola Centeno DO
Reason for Consultation: enteritis
Medical History
Chief Complaint / HPI
Chief Complaint: abdominal pain, distention, rectal bleeding
History of Present Illness:
79-year-old female with past medical history of hyperlipidemia, hypothyroidism, GERD, cholelithiasis, hiatal hernia, chronic constipation and osteoporosis with recent admission 01/23/25-01/30/25 with nausea, fever, abdominal pain, with concern
for enteritis, diverticulitis and moderate to large hiatal hernia. CT angio was also completed with concern for moderate stenosis of celiac artery and SMV though mesenteric arteries grossly patent with bowel wall thickening in mid jejunum and mid
to distal ileum. Follow up SB imaging with rapid transit with and TI thickening. She was discharged 01/30 and now returns with RLQ pain with severe bloating with eating with loose dark stools. Repeat CT on return with severe diffuse enteritis in
jejunal an ileal SB loop with concern for ischemia, infectious, IBS, vasculitis, connective tissues disease or angioedema with small volume ascites and severe stenosis, large PEH, diverticulosis, pleural effusion and atelectasis vs PNA. On return
noted with WBC up to 21,500, hbg 13.1, platelets 481, Na 132 K 3.4, glucose 129.
In review with patient symptoms started around 01/21 prior to last admission. She initially had nausea and vomiting with dark emesis and dark stool that have now improved. She continued with bloating, epigastric pain and difficulty with oral
intakes. She admits prior to onset she was having stools every 10 days with need for laxatives. Now she is having diarrhea. She also admits to chronic pill dysphagia and increased abdominal girth since this past summer. She denies wt loss, or
current rectal bleeding. She uses Advil 400 mg several times a week. Her last colonoscopy was [address] Mccarthy where she had polyps. EGD: [facility]- normal duodenum, grade B reflux esophagitis, HH.
Past Medical History
Past Medical History: Other (Hypothyroidism, hyperlipidemia, GERD, chronic constipation, osteoporosis , hiatal hernia, cholelithiasis )
Past Surgical History: Other (Cataracts)
Social History
Tobacco: Former Smoker (years ago )
Alcohol: None
Drug: None
Personal:
Living: With Family
Employment: Retired
Family History
Family History: Other (No family history of gastrointestinal malignancy or IBD)
Allergies / Home Medications
Allergy/AdvReac Type Severity Reaction Status Date / Time
Penicillins Allergy Unknown- Verified 02/01/25 18:23
tolerated
ampicillin/sulbactam
�Medication �Instructions �Recorded
atorvastatin 20 mg tablet 20 mg PO HS High Cholesterol 01/23/25
levothyroxine 75 mcg tablet 75 mcg PO DAILY Thyroid 01/23/25
(Synthroid)
pantoprazole 40 mg tablet,delayed 40 mg PO DAILY Gastrointestinal 01/23/25
release Issue
cefdinir 300 mg capsule 300 mg PO BID 5 days #10 caps 01/29/25
metronidazole 500 mg tablet 500 mg PO Q8H #15 tabs 01/29/25
Review of Systems
-
History Source: Patient
Constitutional: Reports Fever (low grade ) and Fatigue
EENT: Reports No Symptoms
Respiratory: Reports No Symptoms
Cardiac: Reports No Symptoms
Abdomen/GI: Reports Abdominal Pain, Nausea, Vomiting, Diarrhea and Black Stools (recent dark stools now brown )
: Reports Dark Urine
Musculoskeletal: Reports No Symptoms
Skin: Reports No Symptoms
Neurological: Reports Weakness
Endocrine: Reports No Symptoms
Hematologic/Lymphatic: Reports No Symptoms
Vital Signs
Temp Pulse Resp BP Pulse Ox
99.3 F 116 18 120/79 98
02/02/25 01:04 02/02/25 04:39 02/02/25 01:04 02/02/25 04:39 02/02/25 04:39
Physical Exam
Exam
General: Well Developed, Well Nourished and No Apparent Distress
HEENT: Normocephalic and Anicteric
Respiratory: Clear
Cardiac: Other (tachy)
GI: Soft, Tender (epigastric ) and Distended
Musculoskeletal: No Clubbing and No Cyanosis
Skin: Warm and Dry
Neuro: Awake, Alert and AO x 3
Psych: Calm
Results
WBC 24.4 10^3/uL (4.8-10.8) H 02/02/25 05:32
Hgb 12.1 g/dL (12.0-16.0) 02/02/25 05:32
Hct 38.1 % (37.0-47.0) 02/02/25 05:32
MCV 94.8 fL (81.0-99.0) 02/02/25 05:32
Plt Count 484 10^3/uL (130-400) H 02/02/25 05:32
Absolute Neuts (auto) 18.9 10^3/uL (1.4-6.5) H 02/01/25 19:38
Sodium 133 mmol/L (135-145) L 02/01/25 19:38
Potassium 3.4 mmol/L (3.5-5.1) L 02/01/25 19:38
Chloride 102 mmol/L (98-107) 02/01/25 19:38
Carbon Dioxide 25 mmol/L (22-30) 02/01/25 19:38
BUN 11 mg/dl (7-17) 02/01/25 19:38
Creatinine 0.5 mg/dL (0.6-1.0) L 02/01/25 19:38
Calcium 8.1 mg/dl (8.4-10.2) L 02/01/25 19:38
Total Bilirubin 0.8 mg/dl (0.2-1.3) 02/01/25 19:38
AST 28 U/L (14-36) 02/01/25 19:38
ALT 17 U/L (0-35) 02/01/25 19:38
Alkaline Phosphatase 33 U/L (38-126) L 02/01/25 19:38
Lipase 105 U/L (23-300) 02/01/25 19:38
Diagnostic Image Results:
01/22/25 CT A/p IV only
IMPRESSION: As described above, 2 discontinuous areas of enteritis involving the small bowel, with involvement of the proximal to mid jejunum in the left upper quadrant and involvement of the distal ileum in the right lower quadrant. There is
significant stranding and edema within the adjacent mesentery of these involve loops of bowel. Free fluid within the abdomen and pelvis. See above discussion.
No evidence of free intraperitoneal air.
Short segment of diverticulitis involving the sigmoid colon within the central and right paramedian pelvis. No evidence for associated abscess.
Moderate hiatal hernia with surrounding fluid in the left hemithorax, fluid likely extending superiorly through the hiatal hernia defect.
Cholelithiasis. No CT findings to suggest acute cholecystitis. No evidence of biliary ductal dilation
01/23/25 CT Abd/pelvis Angio W/wo Iv
No aortic aneurysm or dissection.
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
No venous phase provided, therefore, cannot assess for venous patency.
Persistent bowel wall thickening. Moderate to advanced bowel thickening involving the proximal to mid jejunum in the left abdomen, though there is also mild wall thickening involving mid to distal ileum. There may also be mild long segment wall
thickening involving the transverse colon through sigmoid colon, though wall thickness may be accentuated by underdistention. There is also mesenteric soft tissue stranding/edema as well as ascites. Exact etiology uncertain. Possibly infectious or
inflammatory. Ischemic etiology may also be considered.
The remainder the examination is stable with findings as described.
01/26/25 RF Sm Intest ONLY-Single Cont
Rapid small bowel transit, less than 15 minutes.
Some separation of opacified loops of small bowel and some findings suggesting some mucosal thickening involving the distal small bowel, possibly the terminal ileum. Findings most likely on an inflammatory/infectious basis. Malignancy or other
etiology less likely.
01/27/25 Abd X ray
Nonobstructive intestinal bowel gas pattern, contrast in right colon
01/28/25 CT Abd/pelvis W Iv and oral contrast
Severe bowel wall thickening of a segment of the proximal jejunum, similar compared to the CT abdomen/pelvis from 01/23/2025. Improvement of jejunal bowel wall thickening further distally. Increased moderate to severe wall thickening of a long
segment of the terminal ileum. Stable moderate wall thickening of the sigmoid colon. These findings may be infectious/inflammatory or ischemic.
Cholelithiasis.
Mild abdominopelvic ascites.
Small bilateral pleural effusions.
Moderate to large hiatal hernia.
02/01/25 CT a/p with IV contrast
1. SEVERE DIFFUSE ENTERITIS throughout both jejunal and ileal small bowel loops. Diagnostic possibilities are (1) acute small bowel ischemia, (2) a severe acute infectious enteritis, (3) severe inflammatory bowel disease, vasculitis, or connective
tissue disease, or (4) severe angioedema.
2. Small volume of abdominal and pelvic ascites.
3. 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
4. Large paraesophageal hiatal hernia.
5. Moderate diverticulosis in the sigmoid colon.
6. Cholelithiasis.
7. Small to moderate-sized right and small left pleural effusions.
8. Large left lower lobe airspace consolidation (pneumonia or atelectasis).
Prior GI Procedures:
EGD: Vik[facility]- normal duodenum, grade B reflux esophagitis, HH
Colonoscopy: last colonoscopy was [address] Mccarthy where she had polyps
Assessment / Plan
-
79-year-old female with past medical history of hyperlipidemia, hypothyroidism, GERD, cholelithiasis, hiatal hernia, chronic constipation and osteoporosis with recent admission 01/23/25-01/30/25 with nausea, fever, abdominal pain, with concern
for enteritis, diverticulitis and moderate to large hiatal hernia. CT angio was also completed with concern for moderate stenosis of celiac artery and SMV though mesenteric arteries grossly patent with bowel wall thickening in mid jejunum and mid
to distal ileum. Follow up SB imaging with rapid transit with and TI thickening. She was discharged 01/30 and now returns with RLQ pain with severe bloating with eating with loose dark stools. Repeat CT on return with severe diffuse enteritis in
jejunal an ileal SB loop with concern for ischemia, infectious, IBS, vasculitis, connective tissues disease or angioedema with small volume ascites and severe stenosis, large PEH, diverticulosis, pleural effusion and atelectasis vs PNA. On return
noted with WBC up to 21,500, hbg 13.1, platelets 481, Na 132 K 3.4, glucose 129. In review with patient symptoms started around 01/21 prior to last admission. She initially had nausea and vomiting with dark emesis and dark stool that have now
improved. She continued with bloating, epigastric pain and difficulty with oral intakes. She admits prior to onset she was having stools every 10 days with need for laxatives. Now she is having diarrhea. She also admits to chronic pill
dysphagia and increased abdominal girth since this past summer. She denies wt loss, or current rectal bleeding. She uses Advil 400 mg several times a week. Her last colonoscopy was [address] Mccarthy where she had polyps. EGD:
2013-[facility]- normal duodenum, grade B reflux esophagitis, HH.
01/22 CT a/p IV 2 areas enteritis proximal mid jejunum and distal ileum, short segment diverticulitis, moderate HH fluid hemithorax, cholelithiasis
01/23 CT Abd/pelvis Angio W/wo Iv moderate stenosis if celiac and SMA, mesentery patent, thickening proximal to mid jejunum and mid to distal ileum, TC and sigmoid thickening.mesentery stranding
01/26 RF Sm Intest ONLY-Single Cont Rapid small bowel transit, mucosal thickening involving the distal small bowel, possibly the terminal ileum. inflammatory/infectious basis. Malignancy or other etiology less likely.
01/27 Abd X ray Nonobstructive intestinal bowel gas pattern, contrast in right colon
01/28 CT Abd/pelvis W Iv and oral contrast -Severe bowel wall thickening of a segment of the proximal jejunum, Improvement of jejunal bowel wall thickening further distally. Increased moderate to severe wall thickening of a long segment of the TI.
Stable moderate wall thickening of the sigmoid colon. These findings may be infectious/inflammatory or ischemic.Cholelithiasis.Mild ascites.Small bilateral pleural effusions.Moderate to large HH
02/01- CT a/p with IV contrast SEVERE DIFFUSE ENTERITIS throughout both jejunal and ileal SB loops ischemia, infectious, IBD, vasculitis, connective tissue, angioedema. ascites, stenosis proximal SMA, large PEH
2. Small volume ascites, severe stenosis proximal SMA. large PEH, diverticulosis, moderate diverticulosis, Moderate diverticulosis in the sigmoid colon Cholelithiasis. pleural effusions, PNA vs atelectasis
Prior GI Procedures:
EGD: 2013-[facility]- normal duodenum, grade B reflux esophagitis, HH
Colonoscopy: last colonoscopy was [address] Mccarthy where she had polyps
-severe enteritis
-leukocytosis
-tachycardia
-diverticulitis noted on prior CT
-recurrent admission with decreased oral intakes
-large PEH
-concern for moderate stenosis if celiac and SMA
-elevated CRP
-thrombocytosis
-chronic constipation now with diarrhea
-dysphagia with pills
-increas
increased abdominal girth with noted ascites on imaging
-possible PNA vs atelectasis on imaging
other med problems:
hyperlipidemia, hypothyroidism, GERD, cholelithiasis, osteoporosis
PLAN:
Etiology of enteritis ischemia, infectious, IBD, vasculitis, connective tissue, angioedema vs other
Pt with continued enteritis with decreased oral intakes-- some symptoms improved with less vomiting and bleeding improved
cont IVF -- added per surgical team this am
reviewed with surgical team for vascular eval
consider eventual EGD/colon and MRE but limited in patient current ability to prep with minimal intakes
remains on abx
NPO
-
-
Thank you for consultation and allowing me to participate in the patient's care. Please call the second mate GI physician during the after hours with any questions or concerns.
[2025-02-02 06:50] LABS: ALT (SGPT) 15 U/L (0-35); AST (SGOT) 20 U/L (14-36); Albumin 2.5 g/dl (3.5-5.0); Alkaline Phosphatase 40 U/L (38-126); Blood Urea Nitrogen 9 mg/dl (7-17); Calcium 7.8 mg/dl (8.4-10.2); Carbon Dioxide 25 mmol/L (22-30); Chloride 103 mmol/L (98-107); Glucose 90 mg/dl (70-99); Potassium 3.7 mmol/L (3.5-5.1); Sodium 134 mmol/L (135-145); Total Protein 5.4 g/dl (6.3-8.2); eGFR > 60.00
[2025-02-02 07:06] LABS: Nucleated Red Blood Cells % 0 %
[2025-02-02] MEDS: D5LR 1000 IV (08:31)
--- NOTE | 2025-02-02 08:35 | W.PN.HOSP.TC ---
Today's Communication/Plan
-
IVF. Antibiotics.
Assessment / Plan
Assessment / Plan
Physical exam:
General: Acutely ill
HEENT: Normocephalic, Atraumatic and Moist Mucous Membranes
Respiratory: Clear to Auscultation; Negative Wheezes, Rales or Rhonchi
Cardiac: Regular Rhythm and S1/S2
GI: Soft, tender (pain out of proportion of exam) and distended
Musculoskeletal: No Clubbing, No Cyanosis and No Edema
Neuro: Awake, Alert and Oriented, no neurological deficits
Psych: Calm, normal judgment and insight
A/P:
Sepsis due to Mesenteric ischemia, POA:
Patient with tachycardia, tachypnea, leukocytosis upon admission.
WBC 21.5--> 24.4
Trend lactate
Keep n.p.o.
IV fluid
Broad-spectrum IV antibiotics, Zosyn
Seen CTA moderate to severe SMA (more than 70%) and celiac artery stenosis (less than 50%) on CTA, and also severe diffuse enteritis, large paraesophageal hiatal hernia, and moderate diverticulosis and cholelithiasis.
GI consulted by admitting team
General Surgery consulted
Vascular surgery consulted as well and might need vascular intervention
Discussed with family at bedside today
Large left lower lobe consolidation:
Concerns for pneumonia versus atelectasis
Continue IV Zosyn
Bilateral pleural effusions:
Small to moderate size on the right and small on the left
Continue to monitor
Large paraesophageal hernia and GERD:
Discontinue oral and start IV PPI
Hyponatremia:
Monitor trend
Hyperlipidemia:
Hold statin until able to take oral
Hypothyroidism:
Hold thyroid replacement until able to take oral
Hypoalbuminemia:
Albumin levels 2.5 today
DVT prophylaxis:
SCDs
CODE STATUS:
Full code
Total time spent on today's encounter was 57 minutes which included time spent in counseling the patient/family regarding diagnosis and treatment plan as listed above, goals of care, and symptom management. Case was discussed with nursing staff,
specialists, and care coordinators/case management. All labs and imaging personally reviewed by me. Remainder the time spent in detailed review of previous records, lab data, imaging, and other medical provider documentation.
Anticipated Discharge: > 48 hours
Subjective/Interval History
-
Date of Service: February 02, 2025
Patient still having abdominal bloating and discomfort. No nausea or vomiting. Afebrile
Objective Data
-
Labs:
Laboratory Results
02/02/25 02/02/25
05:32 05:33
WBC 24.4 H
Hgb 12.1
Hct 38.1
Plt Count 484 H
Sodium 134 L
Potassium 3.7
Chloride 103
Carbon Dioxide 25
BUN 9
Creatinine 0.5 L
Glucose 90
Calcium 7.8 L
Total Bilirubin 0.9
AST 20
ALT 15
Alkaline Phosphatase 40
Vital Signs:
Vital Signs
Temp Pulse Resp BP Pulse Ox
98.7 F 111 18 127/87 96
02/02/25 08:06 02/02/25 08:06 02/02/25 08:06 02/02/25 08:06 02/02/25 08:06
I&O
02/01/25 02/02/25 02/03/25
06:59 06:59 06:59
Intake Total 345 / 345
Balance 345 / 345
--- NOTE | 2025-02-02 09:43 | CON.GS ---
Addendum entered and electronically signed by Dayo Avila MD 02/02/25 10:52:
I saw and examined the patient independently.
The Specification Manager's note was reviewed and I agree with the note, assessment and plan except where noted below.
Comment: This is an 79-year-old female who Re-presents to our hospital for recurrent abdominal pain, nausea and vomiting of unclear etiology. On his previous admission she was noted to have moderate SMA and celiac artery stenosis on CTA imaging
however she improved clinically and was discharged on a p.o. diet. She comes back with similar symptoms as before though this all slightly to a lesser degree with no minimally bloody stools. Nevertheless she feels just that she did at her initial
hospitalization. Repeat imaging here demonstrates corbin intestinal inflammation as well as free fluid, likely reactive. Her blood work is concerning for a leukocytosis but her exam is unremarkable and out of proportion to her pain. She is not
hungry and does report food aversion. Her CT scan here redemonstrates also calcific plaques at the takeoff of the SMA and celiac artery.
High concern for mesenteric ischemia. Will consult vascular surgery.
N.p.o., IV fluids, IV antibiotics ordered.
PPI
Nutrition labs, given overall poor p.o. intake over the past several weeks may need TPN.
General surgery will continue to follow. If no vascular surgery intervention planned, we will likely move forward with a diagnostic lap.
All questions answered, patient agreeable to plan of care above.
I spent 70 minutes in total for the care of this patient today including direct patient care and counseling, reviewing labs, imaging, coordination of care, as well as documentation.
Original Note:
Consultation
-
Date/Time Consultation Performed: 02/02/25 0820
Medical History
-
Chief Complaint: abdominal pain, bloody bms
History of Present Illness:
79 yo F with a PMH of GERD, HLD, hypothyroidism, and chronic constipation with recent hospitalization from 01/23 to 01/29 for abdominal pain nausea vomiting with unclear etiology. CT at that time demonstrated enteritis affecting jejunum and distal
ileum with concern for possible ischemia versus infectious/inflammatory etiology. CTA early that admission with moderate SMA, Celiac artery stenosis but no clear signs of advanced ischemia on imaging. Stool testing was negative. SBFT later that
admission with rapid transit time, no obsturction. She had noted improvement with abx and bowel rest and diet was advanced and tolerated with subsequent discharge to home. She presents now with recurrent symptoms of nausea, vomiting, abdominal pain
with several bloody stools. She is currently noting generalized abdominal discomfort of 5/10, with mild generalized tenderness on exam. Distention present but not much tympany. She denies fevers or chills. She notes that she overall feels unwell and
has been afraid to eat over the past few days.
Past Medical History
Past Medical History: Hypercholesterolemia and Hypothyroidism
Past Surgical History: Other (Last colonoscopy approx 5 years ago or more with diverticula and polyps noted)
Social History
Tobacco: Former Smoker
Alcohol: None
Family History
Family History: Reviewed & Not Pertinent
Allergies / Home Medications
Allergy/AdvReac Type Severity Reaction Status Date / Time
Penicillins Allergy Unknown- Verified 02/01/25 18:23
tolerated
ampicillin/sulbactam
�Medication �Instructions �Recorded �Confirmed �Type
atorvastatin 20 mg tablet 20 mg PO HS High Cholesterol 01/23/25 01/23/25 History
levothyroxine 75 mcg tablet 75 mcg PO DAILY Thyroid 01/23/25 01/23/25 History
(Synthroid)
pantoprazole 40 mg tablet,delayed 40 mg PO DAILY Gastrointestinal 01/23/25 01/23/25 History
release Issue
cefdinir 300 mg capsule 300 mg PO BID 5 days #10 caps 01/29/25 Rx
metronidazole 500 mg tablet 500 mg PO Q8H #15 tabs 01/29/25 Rx
Review of Systems
-
History Source: Patient
All other systems: Negative unless noted
A 10 point review of systems was completed, and was negative except as per HPI.
Physical Exam
Vital Signs
Temp Pulse Resp BP Pulse Ox
98.7 F 111 18 127/87 96
02/02/25 08:06 02/02/25 08:06 02/02/25 08:06 02/02/25 08:06 02/02/25 08:06
02/01/25 02/02/25 02/03/25
06:59 06:59 06:59
Actual Weight 76.3 kg
Lab Results
02/02/25 05:32
02/02/25 05:33
WBC 24.4 10^3/uL (4.8-10.8) H 02/02/25 05:32
Hgb 12.1 g/dL (12.0-16.0) 02/02/25 05:32
Hct 38.1 % (37.0-47.0) 02/02/25 05:32
Plt Count 484 10^3/uL (130-400) H 02/02/25 05:32
Abs Immat Gran (auto) 0.5 10^3/uL (0-0.05) H 02/02/25 05:32
Neutrophils % 89.2 % (42.2-75.2) H 02/02/25 05:32
Physical Exam
General: Pain; Negative Comfortable
Respiratory: Non Labored Respirations
GI: Soft, Tender (generalized, no rebound/rigidity/guarding) and Distended
Skin: Warm
Neuro: Awake, Alert and AO x 3
Psych: Calm
Data Reviewed
-
CT Scan: Image Personally Visualized and interpreted, Report Reviewed by me, Discussed with Physician and Discussed with Patient
Labs: Labs Reviewed by me, Discussed with Physician and Discussed with Patient
Old Records: Reviewed
Assessment / Plan
-
79 yo F with a PMH of GERD, HLD, hypothyroidism, and chronic constipation with recent hospitalization from 01/23 to 01/29 for abdominal pain nausea vomiting with unclear etiology. CT at that time demonstrated enteritis affecting jejunum and distal
ileum with concern for possible ischemia versus infectious/inflammatory etiology. CTA early that admission with moderate SMA, Celiac artery stenosis but no clear signs of advanced ischemia on imaging. Stool testing was negative. She had noted
improvement with abx and bowel rest and diet was advanced and tolerated with subsequent discharge to home. She presents now with recurrent symptoms of nausea, vomiting, abdominal pain with several bloody stools.
CT this admission again with diffuse enteritis to the small bowel (jejunum/distal ileum) with SMA stenosis again demonstrated with mesenteric edema. No pneumatosis. Suspect ischemic etiology. BP stable, tachycardic, no fevers. Significant
leukocytosis is present of 21.5 on arrival to 24.4 this am. Hemoglobin and renal function wnl. Generalized tenderness present and distention exam.
Plan:
Consult placed to vascular surgery with TT sent to content producer surgeon
Gastroenterology following as well
Keep NPO
C/W IV zosyn empirically given risk of translocation of bacteria from the bowel
Follow WBC
Pending vascular findings may need dx lap to determine extent of ischemia, given ct findings and exam doubt advanced ichemia/necrotic bowel so will hold off for now but will follow closely
--- NOTE | 2025-02-02 09:45 | CON.VAS ---
Consultation
Consultation Request
Date/Time Consultation Performed: 02/02/25 0900
Requesting Provider: Hospitalist
Performing Provider: Gina Lombardo NP-C for Shane Tsang III, MD
Reason for Consultation: SMA stenosis
Medical History
-
Chief Complaint: SMA stenosis
History of Present Illness:
This is a 79 year old female with significant past medical history for paraesophageal hernia, hypothyroidism, hyperlipidemia, and chronic constipation who presents to [place] ED reporting ABD pain, bloating and dark stools. Of note patient was
recently admitted from 01/23/25- 01/30/25 for similar symptomatology. Currently with no appetite. Reports that she has been avoiding food. CT's of the A/P performed recently were reviewed, with attending. She has a focal high-grade calcified
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
Past Medical History
Past Medical History: Other (paraesophageal hernia, hypothyroidism, hyperlipidemia, chronic constipation)
Past Surgical History: Other (Cataracts)
Social History
Tobacco: Former Smoker
Alcohol: None
Drug: None
Personal:
Living: With Family
Allergies / Home Medications
Allergy/AdvReac Type Severity Reaction Status Date / Time
Penicillins Allergy Unknown- Verified 02/01/25 18:23
tolerated
ampicillin/sulbactam
�Medication �Instructions �Recorded �Confirmed �Type
atorvastatin 20 mg tablet 20 mg PO HS High Cholesterol 01/23/25 01/23/25 History
levothyroxine 75 mcg tablet 75 mcg PO DAILY Thyroid 01/23/25 01/23/25 History
(Synthroid)
pantoprazole 40 mg tablet,delayed 40 mg PO DAILY Gastrointestinal 01/23/25 01/23/25 History
release Issue
cefdinir 300 mg capsule 300 mg PO BID 5 days #10 caps 01/29/25 Rx
metronidazole 500 mg tablet 500 mg PO Q8H #15 tabs 01/29/25 Rx
Review of Systems
-
History Source: Patient
Constitutional: Reports No Symptoms
EENT: Reports No Symptoms
Respiratory: Reports No Symptoms
Cardiac: Reports No Symptoms
Abdomen/GI: Reports Other (Abdominal Pain, Nausea, Vomiting, Diarrhea and Black Stools)
: Reports Dark Urine
Skin: Reports No Symptoms
Neurological: Reports No Symptoms
Endocrine: Reports No Symptoms
Physical Exam
Vital Signs
Temp Pulse Resp BP Pulse Ox
98.7 F 111 18 127/87 96
02/02/25 08:06 02/02/25 08:06 02/02/25 08:06 02/02/25 08:06 02/02/25 08:06
Lab Results
02/02/25 05:32
02/02/25 05:33
Physical Exam
General: No Apparent Distress
HEENT: Normocephalic, Anicteric and Atraumatic
Respiratory: Non Labored Respirations
Cardiac: Negative JVD
GI: Soft, Tender and Distended
Musculoskeletal: No Edema
Skin: Warm
Neuro: AO x 3
Assessment / Plan
-
Assessment: 79 year old female with focal high-grade calcified stenosis at the SMA origin
Plan:
Given the clinical circumstances and the concern over mesenteric ischemia with SMA stenosis recommendation is a mesenteric arteriogram with possible endovascular intervention. The technical aspects of this procedure were discussed with her in
detail by Dr. Shane Tsang III. The benefits and rationale for this approach were discussed with her in detail. Operative risks were discussed with her in detail including but not limited to bleeding, infection, contrast nephropathy, distal
embolization, open conversion, inability to successfully complete endovascular intervention and need for additional procedures.
Plan for OR today
NPO
--- NOTE | 2025-02-02 10:15 | CM ---
CM following re: discharge planning.
Reviewed pt's chart, met with pt and pt's daughter at bedside.
Pt is an 79 year old female, admitted with primary dx of Severe diffuse enteritis. PMH: celiac artery/superior mesenteric artery origin stenosis, paraesophageal hernia, hypothyroidism, hyperlipidemia, chronic constipation.
Pt reports she lives with 2SH, 1 step to enter, has 2 supportive children. 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 No DME, VN or SNF history.
PCP: Howard Peoples
Pharmacy: [facility]
D/C plan: home with anticipated no needs. Family to transport at discharge.
CM will follow with discharge plan updates as hospitalization progresses
--- NOTE | 2025-02-02 12:39 | W.PN.UPDATE ---
Update Note
Progress Note Update
Consulted by gastroenterology and general surgery over concerns for mesenteric ischemia.
Patient seen and examined
Chart reviewed
Full consult note to follow.
Patient with recurrent admission for abdominal pain associated with nausea and vomiting
No appetite currently
Reports that she has been avoiding food
CT's of the A/P performed recently were reviewed.
Recent CT angiogram reviewed - She has a focal high-grade calcified stenosis at the SMA origin
Given the clinical circumstances and the concern over mesenteric ischemia with SMA stenosis I am recommending a mesenteric arteriogram with possible endovascular intervention. The technical aspects of this procedure were discussed with her in
detail. The benefits and rationale for this approach were discussed with her in detail. Operative risks were discussed with her in detail including but not limited to bleeding, infection, contrast nephropathy, distal embolization, open conversion,
inability to successfully complete endovascular intervention and need for additional procedures.
She expressed a clear understanding of our conversation and agrees to proceed with surgery as detailed above.
Shane Tsang III, MD
Vascular Surgery
[facility]
[2025-02-02] MEDS: PROTONIX IV 40 MG IV (13:04)
[2025-02-02] MEDS: NSS (PRESERVATIVE FREE) 10 ML IV (13:04)
[2025-02-02] MEDS: DILAUDID 0.25 MG IV (16:13)
--- NOTE | 2025-02-02 19:01 | W.SUR.PREOP ---
Pre-Operative Surgical Note
-
I have examined this patient prior to the performance of the scheduled procedure.
The patient's condition is unchanged from the time of the current History and
Physical and the patient is able to undergo the scheduled procedure.
--- NOTE | 2025-02-02 19:35 | PTCARENOTE ---
Assumed care of pt @1900; pt transported to laboratory tester @ 1930; pt AOx3; VSS; handoff report given at bedside to RN;
--- NOTE | 2025-02-02 21:04 | OR.RPT ---
Operative Report
Operative Report
Date of Operation: 02/02/2025
Pre Op Diagnosis:
1. Proximal superior mesenteric artery stenosis
2. Concern for mesenteric ischemia
Post Op Diagnosis:
1. Proximal superior mesenteric artery stenosis
2. Concern for mesenteric ischemia
Procedure:
1. Balloon angioplasty and stenting of proximal superior mesenteric artery (6 mm x 19 mm Sedgwick VBX)
2. Selective catheterization of superior mesenteric artery
3. Selective mesenteric arteriogram
4. Diagnostic aortogram
5. Ultrasound-guided percutaneous access to the right common femoral artery
Surgeon: Shane Tsang III, MD
Anesthesia: General
Complications: None
Estimated Blood Loss: Less than 10 cc
History and Indications for Procedure: 79-year-old female with concern for chronic mesenteric ischemia.
Procedure in Detail: Aniyah Allen was correctly identified and placed supine on the operating table. After adequate induction of anesthesia her abdomen, pelvis and bilateral groins were prepped and draped in the usual sterile fashion. A time
out procedure was performed with the nursing and anesthesia staff confirming the patient's identity as well as the nature and laterality of the procedure.
Using ultrasound guidance we obtained micropuncture access to the right common femoral artery and then upsized to a 5 Malawian sheath over a Bentson wire. The Bentson wire was navigated into the abdominal aorta followed by a pigtail catheter. A
mesenteric aortogram was performed which demonstrated patency of the celiac artery, superior mesenteric artery and bilateral renal arteries. Focal calcified plaque was identified at the origin of the superior mesenteric artery consistent with the
preoperative CT angiogram findings.
Systemic heparin was administered. Using a Sport Endurance 3 catheter and a Glidewire we selected the superior mesenteric artery. The wire and catheter were advanced into the distal superior mesenteric artery trunk and an arteriogram confirmed proper
position within the true lumen. A 6 Malawian curved RingCredibleell sheath was then advanced through the superior mesenteric artery origin over a Storq wire and positioned in the proximal SMA. A 6 mm x 19 mm Sedgwick VBX stent was positioned in the desired
location across the calcified plaque in the proximal superior mesenteric artery. The sheath was retracted to fully expose the stent. The balloon was inflated to nominal pressure while maintaining gentle forward pressure on the sheath and delivery
system to orient the stent in the desired fashion. The balloon was then deflated and the sheath gently readvanced over the balloon into the stent.
Completion arteriograms demonstrated an excellent technical result with a widely patent superior mesenteric artery stent and superior mesenteric artery, brisk flow and no residual stenosis identified.
Satisfied with this result we then concluded the procedure. The wire was removed from the superior mesenteric artery. The sheath was disengaged and pulled back into the right external iliac artery. Protamine was administered. The sheath was
pulled and direct manual pressure was held over the puncture site. Hemostasis was achieved. A sterile dressing was applied.
The patient tolerated the procedure well was taken to the recovery room in good condition.
Attestation: I was present and responsible for the entire procedure
Signed:
Shane Tsang III, MD
Vascular Surgery
[facility]
--- NOTE | 2025-02-02 22:35 | PTCARENOTE ---
pt rec'd from PACU @ 3532; AOx3; VSS; NC @ 3L; IVF per order; no complaints of pain at this time; bed locked in lowest position; call prather within reach; care ongoing;
[2025-02-03] VITALS (8 sets, daily range): BP systolic 103–121; BP diastolic 52–66
[2025-02-03] MEDS: LOW STRENGTH ASPIRIN 324 MG PO (00:07)
[2025-02-03] MEDS: PLAVIX 300 MG PO (00:07)
[2025-02-03] MEDS: D5LR 1000 IV ×2 (01:40→14:01)
[2025-02-03] MEDS: ZOSYN 50 IV ×4 (04:13→21:04)
[2025-02-03 08:16] LABS: Blood Urea Nitrogen 7 mg/dl (7-17); Calcium 6.9 mg/dl (8.4-10.2); Carbon Dioxide 28 mmol/L (22-30); Chloride 104 mmol/L (98-107); Glucose 124 mg/dl (70-99); Potassium 3.2 mmol/L (3.5-5.1); Sodium 136 mmol/L (135-145); eGFR > 60.00
[2025-02-03 08:31] LABS: Hematocrit 32.8 % (37.0-47.0); Hemoglobin 10.5 g/dL (12.0-16.0); Mean Corp Hgb Conc. 32.0 g/dL (33.0-37.0); Mean Corpuscular Volume 96.8 fL (81.0-99.0); Nucleated Red Blood Cells % 0 %; Platelet Count 369 10^3/uL (130-400); Red Cell Dist. Width 14.6 % (11.5-14.5)
[2025-02-03] MEDS: LOW STRENGTH ASPIRIN 81 MG PO (08:56)
[2025-02-03] MEDS: PROTONIX IV 40 MG IV (08:56)
[2025-02-03] MEDS: PLAVIX 75 MG PO (08:56)
[2025-02-03] MEDS: NSS (PRESERVATIVE FREE) 10 ML IV (08:57)
--- NOTE | 2025-02-03 09:14 | W.PN.VS ---
Addendum entered and electronically signed by Shane Tsang III, MD 02/03/25 13:16:
This patient was seen and examined in collaboration with VANCE Baig. I agree with the history and physical exam as well as the assessment and plan. I have the following additions:
Nontoxic-appearing
Abdomen soft nontender throughout
Right groin access site soft with no hematoma
Successful SMA stenting 02/02/25
Continue with dual antiplatelet therapy
Follow-up in the office after discharge for ongoing surveillance
Signed:
Shane Tsang III, MD
Vascular Surgery
[facility]
Original Note:
Today's Communication / Plan
-
Seen and assessed with Dr Tsang
Assessment/Plan
-
POD 1
1. Balloon angioplasty and stenting of proximal superior mesenteric artery (6 mm x 19 mm [place] VBX)
2. Selective catheterization of superior mesenteric artery
3. Selective mesenteric arteriogram
4. Diagnostic aortogram
5. Ultrasound-guided percutaneous access to the right common femoral artery
Plan:
Continue ASA and plavix as DC
Will add follow up for our office in the DC instructions
Subjective Data
-
Date of Service: February 03, 2025
Pt seen at bedside this am with Dr Tsang. Pt offers no complaints at this time. No events overnight. Puncture site stable.
Objective Data
-
Vital Signs
Temp Pulse Resp BP Pulse Ox
98.0 F 83 16 116/52 95
02/03/25 08:15 02/03/25 08:15 02/03/25 08:15 02/03/25 08:15 02/03/25 08:15
Intake and Output
02/02/25 02/03/25 02/04/25
06:59 06:59 06:59
Intake Total 345 / 345 1580 / 1580
Balance 345 / 345 1579 / 1579
Intake:
Oral fluids 480 / 480
IV fluids (Total) 270 / 270 1000 / 1000
normosol 100 / 100
IV piggybacks 75 / 75 100 / 100
Other:
Number of approximated MODERATE 1 1
amounts of urine
Lab Results
02/03/25 06:50
02/03/25 06:50
Calcium 6.9 mg/dl (8.4-10.2) L* 02/03/25 06:50
Total Bilirubin 0.9 mg/dl (0.2-1.3) 02/02/25 05:33
AST 20 U/L (14-36) 02/02/25 05:33
ALT 15 U/L (0-35) 02/02/25 05:33
Alkaline Phosphatase 40 U/L (38-126) 02/02/25 05:33
Total Protein 5.4 g/dl (6.3-8.2) L 02/02/25 05:33
Albumin 2.5 g/dl (3.5-5.0) L 02/02/25 05:33
Physical Exam
-
Awake and alert
No tachypnea on RA
No tachycardia
Abd soft, NT, flat
Right groin site c/d/i, soft, flat
BL feet warm/pink
[2025-02-03] MEDS: CALCIUM GLUCONATE 100 IV (09:21)
--- NOTE | 2025-02-03 09:34 | W.PN.GS2 ---
Today's Communication / Plan
-
-- Clears
Assessment / Plan
-
Patient is an 79 yo F p/w mesenteric ischemia POD#1 s/p balloon angioplasty and SMA stenting by Dr. Espana
AVSS
Labs notable for downtrending WBC, slight drift in Hb, hypokalemia, normal renal function
Clinically improved. No indication or role for surgical intervention at this time. No clinical or radiographic evidence of worsening bowel ischemia that would necessitate exploration and possible bowel resection. Plan for dietary advancement over
the next 24 to 48 hours.
-- Clears
Subjective Data
-
Date of Service: February 03, 2025
Feels improved. Less abdominal distention. Denies any pain. No nausea or vomiting. No reports of bloody stools.
Objective Data
-
Intake and Output
02/02/25 02/03/25 02/04/25
06:59 06:59 06:59
Intake Total 345 / 345 1580 / 1580
Balance 345 / 345 1580 / 1580
Intake:
Oral fluids 480 / 480
IV fluids (Total) 270 / 270 1000 / 1000
normosol 100 / 100
IV piggybacks 75 / 75 100 / 100
Other:
Number of approximated MODERATE 1 1
amounts of urine
Vital Signs
Temp Pulse Resp BP Pulse Ox
98.0 F 83 16 116/52 95
02/03/25 08:15 02/03/25 08:15 02/03/25 08:15 02/03/25 08:15 02/03/25 08:15
Lab Results
02/03/25 06:50
02/03/25 06:50
Calcium 6.9 mg/dl (8.4-10.2) L* 02/03/25 06:50
Total Bilirubin 0.9 mg/dl (0.2-1.3) 02/02/25 05:33
AST 20 U/L (14-36) 02/02/25 05:33
ALT 15 U/L (0-35) 02/02/25 05:33
Alkaline Phosphatase 40 U/L (38-126) 02/02/25 05:33
Total Protein 5.4 g/dl (6.3-8.2) L 02/02/25 05:33
Albumin 2.5 g/dl (3.5-5.0) L 02/02/25 05:33
Physical Exam
-
Gen: NAD
Abd: soft, NT, mild/moderate distension (exam limited by obesity), non-peritoneal
Patient has a espana catheter: No
Patient has a central line: No
--- NOTE | 2025-02-03 11:18 | W.PN.HOSP.TC ---
Addendum entered and electronically signed by Jose Alejandra MD 02/03/25 12:05:
Hypokalemia-replete and trend
Original Note:
Today's Communication/Plan
-
Antibiotics
Assessment / Plan
Assessment / Plan
Physical exam:
General: Acutely ill
HEENT: Normocephalic, Atraumatic and Moist Mucous Membranes
Respiratory: Clear to Auscultation; Negative Wheezes, Rales or Rhonchi
Cardiac: Regular Rhythm and S1/S2
GI: Soft, less tender and distended today.
Musculoskeletal: No Clubbing, No Cyanosis and No Edema
Neuro: Awake, Alert and Oriented, no neurological deficits
Psych: Calm, normal judgment and insight
A/P:
Sepsis due to Mesenteric ischemia, POA:
Improving
WBC 21.5--> 14.6
Normal lactate last time
Clear liquid diet today
IV fluid
Pain control
Broad-spectrum IV antibiotics, Zosyn
Vascular surgery did balloon angioplasty and stenting of SMA on 02/02
Discussed with family at bedside yesterday
Hypocalcemia:
Replete IV calcium gluconate and trend
Large left lower lobe consolidation:
Concerns for pneumonia versus atelectasis
Continue IV Zosyn
Bilateral pleural effusions:
Small to moderate size on the right and small on the left
Continue to monitor
Large paraesophageal hernia and GERD:
Discontinue oral and start IV PPI
Hyponatremia:
Monitor trend
Hyperlipidemia:
Hold statin until able to take oral
Hypothyroidism:
Hold thyroid replacement until able to take oral
DVT prophylaxis:
SCDs
CODE STATUS:
Full code
Total time spent on today's encounter was 52 minutes which included time spent in counseling the patient/family regarding diagnosis and treatment plan as listed above, goals of care, and symptom management. Case was discussed with nursing staff,
specialists, and care coordinators/case management. All labs and imaging personally reviewed by me. Remainder the time spent in detailed review of previous records, lab data, imaging, and other medical provider documentation.
Anticipated Discharge: 24 - 48 hours
Subjective/Interval History
-
Date of Service: February 03, 2025
Patient abdominal pain is improved, nausea on and off, no vomiting. Afebrile
Objective Data
-
Labs:
Laboratory Results
02/03/25
06:50
WBC 14.6 H
Hgb 10.5 L
Hct 32.8 L
Plt Count 369 D
Sodium 136
Potassium 3.2 L
Chloride 104
Carbon Dioxide 28
BUN 7
Creatinine 0.6
Glucose 124 H
Calcium 6.9 L*
Vital Signs:
Vital Signs
Temp Pulse Resp BP Pulse Ox
98.0 F 83 16 116/52 95
02/03/25 08:15 02/03/25 08:15 02/03/25 08:15 02/03/25 08:15 02/03/25 08:15
I&O
02/02/25 02/03/25 02/04/25
06:59 06:59 06:59
Intake Total 345 / 345 1580 / 1580 150 / 150
Balance 345 / 345 1580 / 1580 150 / 150
--- NOTE | 2025-02-03 12:30 | CM ---
CM following re: discharge planning.
Reviewed pt's chart, met with pt.
Pt is POD#1 s/p balloon angioplasty and SMA stenting. Continue supportive care.
Pt lives with 2SH, 1 step to enter, has 2 supportive children. 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
D/C plan: home with anticipated no needs. Family to transport at discharge.
CM will follow with discharge plan updates as hospitalization progresses
[2025-02-03] MEDS: KCL ELIXIR 40 MEQ PO (12:37)
[2025-02-03] MEDS: LIPITOR 20 MG PO (18:00)
[2025-02-03] MEDS: DESYREL 12.5 MG PO (21:03)
[2025-02-04] MEDS: D5LR 1000 IV (01:29)
[2025-02-04] MEDS: D5LR IV ×2 (02:20→15:40)
--- NOTE | 2025-02-04 02:35 | DOWNTIME ---
There was a [employer] Client Program Coordinator [employer] Education Downtime on 02/04/2025 from 0100 to 02/04/2025 at 0215. Downtime documentation of patient's care, including medication administrations, has been reconciled in the electronic record per guidelines. Refer to the
patient's paper chart under the miscellaneous tab to see printed paper medication records and downtime forms.
[2025-02-04] MEDS: ZOSYN 50 IV (03:49)
[2025-02-04] MEDS: SYNTHROID 75 MCG PO (05:29)
[2025-02-04 06:32] LABS: Hematocrit 35.5 % (37.0-47.0); Hemoglobin 11.3 g/dL (12.0-16.0); Mean Corp Hgb Conc. 31.8 g/dL (33.0-37.0); Mean Corpuscular Volume 96.2 fL (81.0-99.0); Platelet Count 392 10^3/uL (130-400); Red Cell Dist. Width 14.8 % (11.5-14.5)
[2025-02-04 06:44] LABS: Blood Urea Nitrogen 4 mg/dl (7-17); Calcium 7.6 mg/dl (8.4-10.2); Carbon Dioxide 31 mmol/L (22-30); Chloride 103 mmol/L (98-107); Glucose 118 mg/dl (70-99); Potassium 2.9 mmol/L (3.5-5.1); Sodium 133 mmol/L (135-145); eGFR > 60.00
[2025-02-04 07:08] VITALS: BP 109/58
[2025-02-04 08:20] LABS: Absolute Neutrophils -Man Diff 10.9 10^3/uL (1.4-6.5); Normal RBC Morphology Yes; Platelets Checked Yes
[2025-02-04 08:21] LABS: Total Cells Counted 100
--- NOTE | 2025-02-04 08:24 | W.PN.HOSP.TC ---
Today's Communication/Plan
-
CLD. Postop care.
Assessment / Plan
Assessment / Plan
Physical exam:
General: Acutely ill
HEENT: Normocephalic, Atraumatic and Moist Mucous Membranes
Respiratory: Clear to Auscultation; Negative Wheezes, Rales or Rhonchi
Cardiac: Regular Rhythm and S1/S2
GI: Soft, no tender and mild distended
Skin: Macular rash in her chest, back, and abdomen.
Musculoskeletal: No Clubbing, No Cyanosis and No Edema
Neuro: Awake, Alert and Oriented, no neurological deficits
Psych: Calm, normal judgment and insight
A/P:
Sepsis due to Mesenteric ischemia, POA:
Improving
WBC 21.5--> 14.1
Clear liquid diet today
Stop IV fluid today and reevaluate
Pain control
Discontinue antibiotics today and observe off antibiotics
Vascular surgery did balloon angioplasty and stenting of SMA on 02/02--> recommended dual antiplatelet therapy. Restarted statins as well.
Discussed with at bedside today
PT OT eval
Allergic reaction to Zosyn:
Benadryl IV x 1
Stop Zosyn
Observe off antibiotics
Hypokalemia:
Replete and trend
Check magnesium levels
Hypocalcemia:
Repleted yesterday
Corrected calcium improved today
Large left lower lobe consolidation:
Concerns for pneumonia versus atelectasis
Stop IV antibiotics and observe
Incentive spirometry
Bilateral pleural effusions:
Small to moderate size on the right and small on the left
Continue to monitor
Hold off IV fluids
Large paraesophageal hernia and GERD:
Continue IV PPI
Hyponatremia:
Monitor trend
Hyperlipidemia:
Resume statin
Hypothyroidism:
Resume thyroid replacement
DVT prophylaxis:
SCDs
CODE STATUS:
Full code
Total time spent on today's encounter was 36 minutes which included time spent in counseling the patient/family regarding diagnosis and treatment plan as listed above, goals of care, and symptom management. Case was discussed with nursing staff,
specialists, and care coordinators/case management. All labs and imaging personally reviewed by me. Remainder the time spent in detailed review of previous records, lab data, imaging, and other medical provider documentation.
Anticipated Discharge: 24 - 48 hours
Subjective/Interval History
-
Date of Service: February 04, 2025
Patient denies abdominal pain nausea or vomiting today. She had bowel movements today. Afebrile. She has a rash in her trunk since yesterday.
Objective Data
-
Labs:
Laboratory Results
02/04/25 02/04/25 02/04/25
05:54 07:56 07:57
WBC 14.1 H
Hgb 11.3 L Pending
Hct 35.5 L Pending
Plt Count 392
Sodium 133 L Pending
Potassium 2.9 L Pending
Chloride 103 Pending
Carbon Dioxide 31 H Pending
BUN 4 L Pending
Creatinine 0.7 Pending
Glucose 118 H Pending
Calcium 7.6 L Pending
Vital Signs:
Vital Signs
Temp Pulse Resp BP Pulse Ox
98.6 F 72 18 109/58 93
02/04/25 07:08 02/04/25 07:08 02/04/25 07:08 02/04/25 07:08 02/04/25 07:08
I&O
02/03/25 02/04/25 02/05/25
06:59 06:59 06:59
Intake Total 1580 / 1580 1630 / 1630
Balance 1580 / 1580 1630 / 1630
[2025-02-04] MEDS: LOW STRENGTH ASPIRIN 81 MG PO (08:27)
[2025-02-04] MEDS: PLAVIX 75 MG PO (08:27)
[2025-02-04] MEDS: PROTONIX IV 40 MG IV (08:27)
[2025-02-04] MEDS: NSS (PRESERVATIVE FREE) 10 ML IV (08:28)
[2025-02-04 09:19] LABS: Hematocrit 36.1 % (37.0-47.0); Hemoglobin 11.3 g/dL (12.0-16.0)
[2025-02-04 09:48] LABS: Magnesium 2.1 mg/dl (1.6-2.3)
[2025-02-04] MEDS: ZOSYN IV ×2 (09:52→10:10)
[2025-02-04 10:12] LABS: Blood Urea Nitrogen 5 mg/dl (7-17); Calcium 7.4 mg/dl (8.4-10.2); Carbon Dioxide 28 mmol/L (22-30); Chloride 103 mmol/L (98-107); Glucose 108 mg/dl (70-99); Potassium 3.1 mmol/L (3.5-5.1); Sodium 133 mmol/L (135-145); eGFR > 60.00
[2025-02-04] MEDS: KCL 270 MEQ IV (10:25)
--- NOTE | 2025-02-04 10:46 | W.PN.GS2 ---
Today's Communication / Plan
-
Cont CLD
Assessment / Plan
-
Patient is an 79 yo F p/w mesenteric ischemia POD#1 s/p balloon angioplasty and SMA stenting by Dr. Tsang
AVSS
Labs notable for downtrending WBC, stable Hb, hypokalemia (improving), normal renal function
Clinically improved but remains distended. No indication or role for surgical intervention at this time. No clinical or radiographic evidence of worsening bowel ischemia that would necessitate exploration and possible bowel resection. Would remain
on CLD for now pending improvement in distention and appetite
-- Cont Clears
-- All other care as per prmiary team
Subjective Data
-
Date of Service: February 04, 2025
AFVSS, OOBTC, pain almost totally resolved, passing flatus, denies n/v, endorses anorexia, mark CLD without issues
Objective Data
-
Intake and Output
02/03/25 02/04/25 02/05/25
06:59 06:59 06:59
Intake Total 1580 / 1580 1630 / 1630
Balance 1580 / 1580 1630 / 1630
Intake:
Oral fluids 480 / 480 480 / 480
IV fluids (Total) 1000 / 1000 900 / 900
normosol 100 / 100
IV piggybacks 100 / 100 250 / 250
Other:
Number of approximated MODERATE 1
amounts of urine
Number of approximated LARGE 1
amounts of urine
Vital Signs
Temp Pulse Resp BP Pulse Ox
98.6 F 72 18 109/58 93
02/04/25 07:08 02/04/25 07:08 02/04/25 07:08 02/04/25 07:08 02/04/25 07:08
Lab Results
02/04/25 09:08
02/04/25 09:12
Calcium Cancelled 02/04/25 09:12
Magnesium 2.1 mg/dl (1.6-2.3) 02/04/25 09:08
Total Bilirubin 0.9 mg/dl (0.2-1.3) 02/02/25 05:33
AST 20 U/L (14-36) 02/02/25 05:33
ALT 15 U/L (0-35) 02/02/25 05:33
Alkaline Phosphatase 40 U/L (38-126) 02/02/25 05:33
Total Protein 5.4 g/dl (6.3-8.2) L 02/02/25 05:33
Albumin 2.5 g/dl (3.5-5.0) L 02/02/25 05:33
Physical Exam
-
Gen: NAD
Abd: soft, nt, moderate gaseous distention with tympany
[2025-02-04 11:03] VITALS: BMI 31.8
[2025-02-04] MEDS: BENADRYL 25 MG IV (11:24)
--- NOTE | 2025-02-04 13:24 | CM ---
CM following re: discharge planning.
Reviewed pt's chart, met with pt.
Pt is POD#2 s/p balloon angioplasty and SMA stenting. Continue supportive care.
Pt lives with 2SH, 1 step to enter, has 2 supportive children. 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
PT and OT will evaluate the pt tomorrow to determine a level of care art discharge.
D/C plan: most likely home with anticipated no needs. Family to transport at discharge.
CM will follow with discharge plan updates as hospitalization progresses
[2025-02-04 15:43] VITALS: BP 133/76
[2025-02-04] MEDS: LIPITOR 20 MG PO (19:33)
[2025-02-04] MEDS: BENADRYL 25 MG PO (19:53)
[2025-02-04 23:01] VITALS: BP 138/74
[2025-02-05] MEDS: SYNTHROID 75 MCG PO (05:20)
[2025-02-05 06:40] LABS: Hematocrit 34.2 % (37.0-47.0); Hemoglobin 11.4 g/dL (12.0-16.0); Mean Corp Hgb Conc. 33.3 g/dL (33.0-37.0); Mean Corpuscular Volume 93.4 fL (81.0-99.0); Platelet Count 436 10^3/uL (130-400); Red Cell Dist. Width 14.6 % (11.5-14.5)
[2025-02-05 06:42] LABS: Blood Urea Nitrogen 4 mg/dl (7-17); Calcium 7.4 mg/dl (8.4-10.2); Carbon Dioxide 29 mmol/L (22-30); Chloride 105 mmol/L (98-107); Glucose 81 mg/dl (70-99); Magnesium 2.0 mg/dl (1.6-2.3); Potassium 3.8 mmol/L (3.5-5.1); Sodium 136 mmol/L (135-145); eGFR > 60.00
[2025-02-05 07:00] VITALS: BP 142/80
[2025-02-05 07:54] LABS: Nucleated Red Blood Cells % 0 %
[2025-02-05] MEDS: LOW STRENGTH ASPIRIN 81 MG PO (09:19)
[2025-02-05] MEDS: PLAVIX 75 MG PO (09:19)
[2025-02-05] MEDS: NSS (PRESERVATIVE FREE) 10 ML IV (09:19)
[2025-02-05] MEDS: PROTONIX IV 40 MG IV (09:19)
--- NOTE | 2025-02-05 09:29 | W.PN.GS2 ---
Addendum entered and electronically signed by Jaime Galvan MD 02/05/25 16:21:
Patient seen and examined this a.m. with surgical POWERHOUSE TENDER. Agree with documented progress note.
Primary complaint is that she still feels foggy. Reports some bloating/distention. Passing gas and multiple bowel movements -nonbloody. Tolerated clears without exacerbation of pain. Appetite still diminished.
AF -low-grade tachycardia, normotensive
NAD AAO x 3
ABD: Softly distended, no tenderness on palpation
A/P: POD #3 status post angioplasty and SMA stent with vascular for mesenteric ischemia
Clinically improving, clinical signs of ongoing signs of bowel ischemia
Cautious slow dietary resumption -full liquids
Original Note:
Today's Communication / Plan
-
Full liquids
Assessment / Plan
-
Patient is an 79 yo F p/w mesenteric ischemia POD#3 s/p balloon angioplasty and SMA stenting by Dr. Tsang
AVSS
Labs notable for downtrending WBC, stable Hb, hypokalemia resolved, normal renal function
Clinically improving but remains distended. Passing nonbloody loose stools/flatus. No indication or role for surgical intervention at this time.
Plan:
-- Advance to FLD
-- All other care as per prmiary team
Subjective Data
-
Date of Service: February 05, 2025
Pt seen and examined at bedside with Dr. Galvan. Denies pain. Denies n/v. Still feels a little bloated. C/O mental foginess. Passing gas and loose nonbloody bm's x3. Not much appetite
Objective Data
-
Intake and Output
02/04/25 02/05/25 02/06/25
06:59 06:59 06:59
Intake Total 1630 / 1630 240 / 240
Output Total 150 / 150
Balance 1630 / 1630 90 / 90
Intake:
Oral fluids 480 / 480 240 / 240
IV fluids (Total) 900 / 900
IV piggybacks 250 / 250
Output:
Urine, Voided 150 / 150
Other:
Number of approximated MODERATE 2
amounts of urine
Number of approximated LARGE 1
amounts of urine
Number of unmeasured liquid
stools
Rectum 1
Vital Signs
Temp Pulse Resp BP Pulse Ox
98.4 F 100 17 142/80 96
02/05/25 07:00 02/05/25 07:00 02/05/25 07:00 02/05/25 07:00 02/05/25 07:00
Lab Results
02/05/25 05:27
02/05/25 05:27
Calcium 7.4 mg/dl (8.4-10.2) L 02/05/25 05:27
Magnesium 2.0 mg/dl (1.6-2.3) 02/05/25 05:27
Total Bilirubin 0.9 mg/dl (0.2-1.3) 02/02/25 05:33
AST 20 U/L (14-36) 02/02/25 05:33
ALT 15 U/L (0-35) 02/02/25 05:33
Alkaline Phosphatase 40 U/L (38-126) 02/02/25 05:33
Total Protein 5.4 g/dl (6.3-8.2) L 02/02/25 05:33
Albumin 2.5 g/dl (3.5-5.0) L 02/02/25 05:33
Physical Exam
-
Gen: NAD
Abd: soft, nt, mild to moderate gaseous distention
--- NOTE | 2025-02-05 10:59 | W.PN.HOSP.TC ---
Today's Communication/Plan
-
Postop care
Assessment / Plan
Assessment / Plan
Physical exam:
General: Acutely ill
HEENT: Normocephalic, Atraumatic and Moist Mucous Membranes
Respiratory: Clear to Auscultation; Negative Wheezes, Rales or Rhonchi
Cardiac: Regular Rhythm and S1/S2
GI: Soft, no tender and mild distended
Skin: Macular rash in her chest, back, and abdomen. Rash more intense today.
Musculoskeletal: No Clubbing, No Cyanosis and No Edema
Neuro: Awake, Alert and Oriented, no neurological deficits
Psych: Calm, normal judgment and insight
A/P:
Sepsis due to Mesenteric ischemia, POA:
Improving
WBC 21.5--> 13.6
Advancing to full liquid diet today
Off IV fluid
Pain control
Off antibiotic
Vascular surgery did balloon angioplasty and stenting of SMA on 02/02--> recommended dual antiplatelet therapy. Restarted statins as well.
Discussed with at bedside today
PT OT eval
Allergic reaction to Zosyn:
Benadryl yesterday
Give Solu-Medrol 40 mg IV x 1 today
Off Zosyn
Observe off antibiotics
Hypokalemia:
Improved
Hypocalcemia:
Improved
Large left lower lobe consolidation:
Concerns for pneumonia versus atelectasis-ruled out pneumonia and likely atelectasis.
Off antibiotics
Incentive spirometry
Bilateral pleural effusions:
Small to moderate size on the right and small on the left
Continue to monitor
Hold off IV fluids
Large paraesophageal hernia and GERD:
Continue IV PPI
Hyponatremia:
Monitor trend
Hyperlipidemia:
Resume statin
Hypothyroidism:
Resume thyroid replacement
DVT prophylaxis:
SCDs
CODE STATUS:
Full code
Total time spent on today's encounter was 36 minutes which included time spent in counseling the patient/family regarding diagnosis and treatment plan as listed above, goals of care, and symptom management. Case was discussed with nursing staff,
specialists, and care coordinators/case management. All labs and imaging personally reviewed by me. Remainder the time spent in detailed review of previous records, lab data, imaging, and other medical provider documentation.
Anticipated Discharge: 24 - 48 hours
Subjective/Interval History
-
Date of Service: February 05, 2025
Denies abdominal pain nausea or vomiting. Rash still ongoing.
Objective Data
-
Labs:
Laboratory Results
02/05/25
05:27
WBC 13.6 H
Hgb 11.4 L
Hct 34.2 L
Plt Count 436 H
Sodium 136
Potassium 3.8
Chloride 105
Carbon Dioxide 29
BUN 4 L
Creatinine 0.6
Glucose 81
Calcium 7.4 L
Vital Signs:
Vital Signs
Temp Pulse Resp BP Pulse Ox
98.4 F 100 17 142/80 96
02/05/25 07:00 02/05/25 07:00 02/05/25 07:00 02/05/25 07:00 02/05/25 07:00
I&O
02/04/25 02/05/25 02/06/25
06:59 06:59 06:59
Intake Total 1630 / 1630 240 / 240
Output Total 150 / 150
Balance 1630 / 1630 90 / 90
[2025-02-05 12:52] VITALS: BP 132/78; PULSE 103; O2SAT 97
[2025-02-05 13:07] VITALS: BP 132/78; PULSE 102; O2SAT 96
--- NOTE | 2025-02-05 13:24 | PTOTSP ---
pt currently requires supervision to complete simple ADLs, functional transfers, ambulation. pt appears to be close to baseline regarding functional tasks. pt's spouse present and aware of potential need for assistance once d/c. no acute OT needs
identified at this time, will sign off.
[2025-02-05] MEDS: SOLU-MEDROL PF 40 MG IV (14:45)
[2025-02-05 15:00] VITALS: BP 140/84
[2025-02-05] MEDS: LIPITOR 20 MG PO (18:41)
[2025-02-05 23:00] VITALS: BP 138/52
[2025-02-06] MEDS: SYNTHROID 75 MCG PO (03:31)
[2025-02-06] MEDS: BENADRYL 25 MG PO (03:31)
[2025-02-06 07:20] VITALS: BP 149/78
[2025-02-06 07:39] LABS: Hematocrit 31.0 % (37.0-47.0); Hemoglobin 10.3 g/dL (12.0-16.0); Mean Corp Hgb Conc. 33.2 g/dL (33.0-37.0); Mean Corpuscular Volume 93.9 fL (81.0-99.0); Platelet Count 375 10^3/uL (130-400); Red Cell Dist. Width 14.7 % (11.5-14.5)
[2025-02-06 08:01] LABS: Blood Urea Nitrogen 6 mg/dl (7-17); Calcium 7.3 mg/dl (8.4-10.2); Carbon Dioxide 30 mmol/L (22-30); Chloride 107 mmol/L (98-107); Glucose 85 mg/dl (70-99); Potassium 4.0 mmol/L (3.5-5.1); Sodium 133 mmol/L (135-145); eGFR > 60.00
[2025-02-06] MEDS: NSS (PRESERVATIVE FREE) 10 ML IV (09:17)
[2025-02-06] MEDS: PLAVIX 75 MG PO (09:18)
[2025-02-06] MEDS: FLUSH (NSS) 2 FLUSH IV ×2 (09:18→13:01)
[2025-02-06] MEDS: LOW STRENGTH ASPIRIN 81 MG PO (09:18)
[2025-02-06] MEDS: PROTONIX IV 40 MG IV (09:18)
[2025-02-06] MEDS: LOTRISONE CREAM 1 APPLIC TOPICAL (09:25)
--- NOTE | 2025-02-06 09:39 | W.PN.GS2 ---
Today's Communication / Plan
-
full liquids
Assessment / Plan
-
Patient is an 79 yo F p/w mesenteric ischemia POD#4 s/p balloon angioplasty and SMA stenting by Dr. Tsang
AVSS
Labs notable for downtrending WBC, stable Hgb
Mild hyponatremia
Clinically improving. Passing nonbloody loose stools/flatus. Still with some cramping.
Plan:
-- Continue FLD, will add BID supplement shakes. Anticipate it will take several weeks for GI function to return to baseline after this ischemic event.
-- Will continue FLD with supplements for the coming week or so and then advance to low residue once more improved, this can be done as an outpatient
-- All other care/dispo planning as per primary team
Subjective Data
-
Date of Service: February 06, 2025
Pt seen and examined at bedside with Dr. Morales. Dania n/v. Some cramping/gas pains. Passing flatus and liquid stools. Overall feeling more energetic and improved.
Objective Data
-
Intake and Output
02/05/25 02/06/25 02/07/25
06:59 06:59 06:59
Intake Total 240 / 240
Output Total 150 / 150
Balance 90 / 90
Intake:
Oral fluids 240 / 240
Output:
Urine, Voided 150 / 150
Other:
Number of approximated MODERATE 2 1
amounts of urine
Number of unmeasured liquid
stools
Rectum 1
Vital Signs
Temp Pulse Resp BP Pulse Ox
97.7 F 90 16 149/78 95
02/06/25 07:20 02/06/25 07:20 02/06/25 07:20 02/06/25 07:20 02/06/25 07:20
Lab Results
02/06/25 06:23
02/06/25 06:23
Calcium 7.3 mg/dl (8.4-10.2) L 02/06/25 06:23
Magnesium 2.0 mg/dl (1.6-2.3) 02/05/25 05:27
Total Bilirubin 0.9 mg/dl (0.2-1.3) 02/02/25 05:33
AST 20 U/L (14-36) 02/02/25 05:33
ALT 15 U/L (0-35) 02/02/25 05:33
Alkaline Phosphatase 40 U/L (38-126) 02/02/25 05:33
Total Protein 5.4 g/dl (6.3-8.2) L 02/02/25 05:33
Albumin 2.5 g/dl (3.5-5.0) L 02/02/25 05:33
Physical Exam
-
Gen: NAD
Abd: soft, nt, mild gaseous distention
--- NOTE | 2025-02-06 11:06 | W.PN.HOSP.TC ---
Today's Communication/Plan
-
Surgery follow-up. IV steroids x 1.
Assessment / Plan
Assessment / Plan
Physical exam:
General: Acutely ill
HEENT: Normocephalic, Atraumatic and Moist Mucous Membranes
Respiratory: Clear to Auscultation; Negative Wheezes, Rales or Rhonchi
Cardiac: Regular Rhythm and S1/S2
GI: Soft, no tender and mild distended
Skin: Macular rash in her chest, back, and abdomen. Rash more intense today.
Musculoskeletal: No Clubbing, No Cyanosis and No Edema
Neuro: Awake, Alert and Oriented, no neurological deficits
Psych: Calm, normal judgment and insight
A/P:
Sepsis due to Mesenteric ischemia, POA:
Improving
WBC 21.5--> 11.5
On full liquid diet-advance diet per surgery
Off IV fluid
Pain control
Off antibiotic
Vascular surgery did balloon angioplasty and stenting of SMA on 02/02--> recommended dual antiplatelet therapy. Restarted statins as well.
Discussed with at bedside today
PT OT eval
Allergic reaction to Zosyn:
Benadryl given before
Give Solu-Medrol 40 mg IV x 1 one more time today
Off Zosyn
Observe off antibiotics
Hypokalemia:
Improved
Hypocalcemia:
Improved
Large left lower lobe consolidation:
Concerns for pneumonia versus atelectasis-ruled out pneumonia and likely atelectasis.
Off antibiotics
Incentive spirometry
Bilateral pleural effusions:
Small to moderate size on the right and small on the left
Continue to monitor
Hold off IV fluids
Large paraesophageal hernia and GERD:
Continue IV PPI
Hyponatremia:
Monitor trend
Hyperlipidemia:
Resume statin
Hypothyroidism:
Resume thyroid replacement
DVT prophylaxis:
SCDs
CODE STATUS:
Full code
Total time spent on today's encounter was 36 minutes which included time spent in counseling the patient/family regarding diagnosis and treatment plan as listed above, goals of care, and symptom management. Case was discussed with nursing staff,
specialists, and care coordinators/case management. All labs and imaging personally reviewed by me. Remainder the time spent in detailed review of previous records, lab data, imaging, and other medical provider documentation.
Anticipated Discharge: 24 - 48 hours
Subjective/Interval History
-
Date of Service: February 06, 2025
Patient complains of abdominal cramps on and off. No nausea or vomiting. Rash still ongoing but fading in the front-no itchiness. No shortness of breath
Objective Data
-
Labs:
Laboratory Results
02/06/25
06:23
WBC 11.5 H
Hgb 10.3 L
Hct 31.0 L
Plt Count 375
Sodium 133 L
Potassium 4.0
Chloride 107
Carbon Dioxide 30
BUN 6 L
Creatinine 0.5 L
Glucose 85
Calcium 7.3 L
Vital Signs:
Vital Signs
Temp Pulse Resp BP Pulse Ox
97.7 F 90 16 149/78 95
02/06/25 07:20 02/06/25 07:20 02/06/25 07:20 02/06/25 07:20 02/06/25 09:15
I&O
02/05/25 02/06/25 02/07/25
06:59 06:59 06:59
Intake Total 240 / 240
Output Total 150 / 150
Balance 90 / 90
[2025-02-06] MEDS: SOLU-MEDROL PF 40 MG IV (13:00)
--- NOTE | 2025-02-06 13:07 | CM ---
CM following re: discharge planning.
Reviewed pt's chart, met with pt and pt's at bedside.
Pt is POD#4 s/p balloon angioplasty and SMA stenting. Continue supportive care.
Pt lives with 2SH, 1 step to enter, has 2 supportive children. Pt described herself as independent in all areas [employer].
PT and OT evaluations noted - home PT/OT recommended. Pt is aware, expressed her agreement. VN list provided, pt preferred [facility]. A referral to [facility] made.
IMM reviewed, placed on chart, pt has a copy.
Please fax discharge instructions to [facility] [phone]
D/C plan: home with [facility] and family support. to transport at discharge.
CM will follow with discharge plan updates as needed.
--- NOTE | 2025-02-06 14:11 | VNURNOTE ---
Home Health Liaison met with patient at bedside to discuss [facility] nurse/therapy, visits, schedule and homebound status. Patient is agreeable and understands that visits at home will be 2-3 x per week to assess and teach medical management. Patient
is aware that [facility] will contact them for start of care within a few days after discharge from . Provided contact number for [facility]. Inquired about DME in the home. She stated she has a stair glide, rolling walker, rollator walker. Liaison
offered to arrange hospital bed and /or wheelchair. Patient declined.
[facility] referral completed in Care Port.
--- NOTE | 2025-02-06 14:13 | VNURNOTE ---
Home Health Liaison met with patient and spouse at bedside to discuss [facility] nurse/therapy, visits, schedule and homebound status. Patient is agreeable and understands that visits at home will be 2-3 x per week to assess and teach medical
management. Patient is aware that [facility] will contact them for start of care within a few days after discharge from . Provided contact number for [facility].
[facility] referral completed in [facility].
[2025-02-06 14:51] VITALS: BP 138/78; PULSE 96
[2025-02-06 15:15] VITALS: BP 133/73
[2025-02-06] MEDS: LIPITOR 20 MG PO (17:48)
[2025-02-06 23:00] VITALS: BP 113/64
[2025-02-07] MEDS: TYLENOL 650 MG PO ×3 (02:03→17:46)
[2025-02-07] MEDS: SYNTHROID 75 MCG PO (06:06)
[2025-02-07 06:24] LABS: Hematocrit 31.9 % (37.0-47.0); Hemoglobin 10.0 g/dL (12.0-16.0); Mean Corp Hgb Conc. 31.3 g/dL (33.0-37.0); Mean Corpuscular Volume 96.1 fL (81.0-99.0); Platelet Count 379 10^3/uL (130-400); Red Cell Dist. Width 14.9 % (11.5-14.5)
[2025-02-07 06:32] LABS: Blood Urea Nitrogen 9 mg/dl (7-17); Calcium 7.6 mg/dl (8.4-10.2); Carbon Dioxide 28 mmol/L (22-30); Chloride 108 mmol/L (98-107); Glucose 84 mg/dl (70-99); Potassium 4.1 mmol/L (3.5-5.1); Sodium 133 mmol/L (135-145); eGFR > 60.00
[2025-02-07 06:56] LABS: Nucleated Red Blood Cells % 0 %
[2025-02-07 07:20] VITALS: BP 128/69
[2025-02-07] MEDS: LOW STRENGTH ASPIRIN 81 MG PO (09:44)
[2025-02-07] MEDS: PROTONIX IV 40 MG IV (09:44)
[2025-02-07] MEDS: NSS (PRESERVATIVE FREE) 10 ML IV (09:44)
[2025-02-07] MEDS: PLAVIX 75 MG PO (09:44)
--- NOTE | 2025-02-07 09:48 | W.PN.GS2 ---
Addendum entered and electronically signed by Dayo Avila MD 02/07/25 10:04:
Reasonable to also get a CT abdomen pelvis with p.o. and IV contrast. Discussed with hospitalist.
Addendum entered and electronically signed by Dayo Avila MD 02/07/25 09:59:
I saw and examined the patient independently.
The Merchandise Manager's note was reviewed and I agree with the note, assessment and plan except where noted below.
Comment: 79-year-old female with mesenteric ischemia status post balloon angioplasty and SMA stenting. Did well most of yesterday day but worsening pain overnight, will back down to clears.
General surgery will continue to follow
Original Note:
Today's Communication / Plan
-
back diet down to clears
Assessment / Plan
-
Patient is an 79 yo F p/w mesenteric ischemia POD#5 s/p balloon angioplasty and SMA stenting by Dr. Tsang
AVSS
WBC 11.6 (11.5), Hgb 10.0 (10.3)
Mild hyponatremia
Worsening pain overnight.
Plan:
-- Scale diet back to clears with supplements. Anticipate it will take several weeks for GI function to return to baseline after this ischemic event.
-- Hospitalist notified about worsening rash.
-- All other care/dispo planning as per primary team
Subjective Data
-
Date of Service: February 07, 2025
Patient states she had a 'bad night'. She has more pain this morning. Denies nausea or vomiting. She feels a little bloated.
Objective Data
-
Intake and Output
02/06/25 02/07/25 02/08/25
06:59 06:59 06:59
Intake Total 1140 / 1140
Balance 1140 / 1140
Intake:
Oral fluids 1140 / 1140
Other:
Number of approximated MODERATE 1 4
amounts of urine
Vital Signs
Temp Pulse Resp BP Pulse Ox
97.6 F 79 16 128/69 97
02/07/25 07:20 02/07/25 07:20 02/07/25 07:20 02/07/25 07:20 02/07/25 07:20
Lab Results
02/07/25 05:42
02/07/25 05:42
Calcium 7.6 mg/dl (8.4-10.2) L 02/07/25 05:42
Magnesium 2.0 mg/dl (1.6-2.3) 02/05/25 05:27
Total Bilirubin 0.9 mg/dl (0.2-1.3) 02/02/25 05:33
AST 20 U/L (14-36) 02/02/25 05:33
ALT 15 U/L (0-35) 02/02/25 05:33
Alkaline Phosphatase 40 U/L (38-126) 02/02/25 05:33
Total Protein 5.4 g/dl (6.3-8.2) L 02/02/25 05:33
Albumin 2.5 g/dl (3.5-5.0) L 02/02/25 05:33
Physical Exam
-
Gen: NAD
Abd: soft, nt, mild/moderately distended, erythematous patchy rash over abdomen
--- NOTE | 2025-02-07 10:19 | W.PN.HOSP.TC ---
Today's Communication/Plan
-
CT scan of abdomen pelvis. IV Lasix. IV steroids.
Assessment / Plan
Assessment / Plan
Physical exam:
General: Acutely ill
HEENT: Normocephalic, Atraumatic and Moist Mucous Membranes
Respiratory: Decreased breath sounds bilateral in the bases; Negative Wheezes, Rales or Rhonchi
Cardiac: Regular Rhythm and S1/S2
GI: Soft, tender and distended
Skin: Macular rash in her chest, back, and abdomen. Rash more intense today.
Musculoskeletal: No Clubbing, No Cyanosis and No Edema
Neuro: Awake, Alert and Oriented, no neurological deficits
Psych: Calm, normal judgment and insight
A/P:
Sepsis due to Mesenteric ischemia, POA:
Initially improving but now patient is having more abdominal pain so we will reevaluate.
Downgrade diet to clear liquid diet per surgery
Discussed with surgery and plan to do a CT scan of the abdomen and pelvis with IV and oral contrast today
Discussed with at bedside
Prior to today:
Improving
WBC 21.5--> 11.5
On full liquid diet-advance diet per surgery
Off IV fluid
Pain control
Off antibiotic
Vascular surgery did balloon angioplasty and stenting of SMA on 02/02--> recommended dual antiplatelet therapy. Restarted statins as well.
Discussed with at bedside today
PT OT eval
Volume overload with Bilateral pleural effusions:
IV Lasix 40 mg x 1 today and reevaluate
Monitor renal function and electrolyte, daily weights, and ins and outs
Allergic reaction to Zosyn:
Start scheduled doses of IV Dexa and reevaluate
Off Zosyn
Hypokalemia:
Improved
Hypocalcemia:
Improved
Large left lower lobe consolidation:
Concerns for pneumonia versus atelectasis-ruled out pneumonia and likely atelectasis.
Off antibiotics
Incentive spirometry
Large paraesophageal hernia and GERD:
Continue IV PPI
Hyponatremia:
Monitor trend
Hyperlipidemia:
Resume statin
Hypothyroidism:
Resume thyroid replacement
DVT prophylaxis:
SCDs
CODE STATUS:
Full code
Total time spent on today's encounter was 57 minutes which included time spent in counseling the patient/family regarding diagnosis and treatment plan as listed above, goals of care, and symptom management. Case was discussed with nursing staff,
specialists, and care coordinators/case management. All labs and imaging personally reviewed by me. Remainder the time spent in detailed review of previous records, lab data, imaging, and other medical provider documentation.
Anticipated Discharge: > 48 hours
Subjective/Interval History
-
Date of Service: February 07, 2025
Patient having a lot of abdominal pain overnight. Small bowel movement black liquid/soft stool per patient report. No nausea vomiting. Does have peripheral edema with increased leg swelling. Also rash about the same.
Objective Data
-
Labs:
Laboratory Results
02/07/25
05:42
WBC 11.6 H
Hgb 10.0 L
Hct 31.9 L
Plt Count 379
Sodium 133 L
Potassium 4.1
Chloride 108 H
Carbon Dioxide 28
BUN 9
Creatinine 0.6
Glucose 84
Calcium 7.6 L
Vital Signs:
Vital Signs
Temp Pulse Resp BP Pulse Ox
97.6 F 79 16 128/69 97
02/07/25 07:20 02/07/25 07:20 02/07/25 07:20 02/07/25 07:20 02/07/25 07:20
I&O
02/06/25 02/07/25 02/08/25
06:59 06:59 06:59
Intake Total 1140 / 1140
Balance 1140 / 1140
[2025-02-07] MEDS: OMNIPAQUE 50 ML PO (10:53)
[2025-02-07] MEDS: LASIX 40 MG IV ×2 (10:55→17:42)
[2025-02-07] MEDS: DECADRON 4 MG IV ×2 (12:59→19:51)
[2025-02-07 15:10] VITALS: BP 149/87
[2025-02-07] MEDS: LIPITOR 20 MG PO (17:46)
[2025-02-07 23:00] VITALS: BP 110/65
[2025-02-08] MEDS: DECADRON 4 MG IV ×3 (03:53→17:36)
[2025-02-08] MEDS: FLUSH (NSS) 1 FLUSH IV (03:54)
[2025-02-08] MEDS: SYNTHROID 75 MCG PO (05:39)
[2025-02-08 07:15] VITALS: BP 131/80
[2025-02-08 08:41] LABS: Hematocrit 32.5 % (37.0-47.0); Hemoglobin 10.5 g/dL (12.0-16.0); Mean Corp Hgb Conc. 32.3 g/dL (33.0-37.0); Mean Corpuscular Volume 92.3 fL (81.0-99.0); Nucleated Red Blood Cells % 0 %; Platelet Count 413 10^3/uL (130-400); Red Cell Dist. Width 14.9 % (11.5-14.5)
[2025-02-08] MEDS: LASIX 40 MG IV ×2 (08:52→17:36)
[2025-02-08] MEDS: NSS (PRESERVATIVE FREE) 10 ML IV (08:52)
[2025-02-08] MEDS: PROTONIX IV 40 MG IV (08:52)
[2025-02-08] MEDS: LOW STRENGTH ASPIRIN 81 MG PO (08:53)
[2025-02-08] MEDS: PLAVIX 75 MG PO (08:53)
[2025-02-08 09:10] LABS: Blood Urea Nitrogen 10 mg/dl (7-17); Calcium 7.2 mg/dl (8.4-10.2); Carbon Dioxide 25 mmol/L (22-30); Chloride 104 mmol/L (98-107); Glucose 68 mg/dl (70-99); Magnesium 2.3 mg/dl (1.6-2.3); Potassium 4.2 mmol/L (3.5-5.1); Sodium 133 mmol/L (135-145); eGFR > 60.00
--- NOTE | 2025-02-08 09:47 | W.PN.GS2 ---
Today's Communication / Plan
-
Full liquid diet
Assessment / Plan
-
Patient is an 79 yo F p/w mesenteric ischemia POD#6 s/p balloon angioplasty and SMA stenting by Dr. Espana
CT scan from 02/07/2025 reviewed, overall improved still with residual enteritis.
Plan:
Will advance back up to full liquid diet.
Out of bed and ambulate as able.
Surgery will follow
Treatment of her rash per hospitalist.
Time Spent
Total Time Spent with Patient (in minutes): 20
Subjective Data
-
Date of Service: February 08, 2025
Interval Events:
No acute events overnight. Slept well. Pain Controlled. Denies Nausea/Vomiting, +bowel function. Tolerating diet. Hungry.
Objective Data
-
Intake and Output
02/07/25 02/08/25 02/09/25
06:59 06:59 06:59
Intake Total 1140 / 1140 960 / 960
Balance 1140 / 1140 960 / 960
Intake:
Oral fluids 1140 / 1140 960 / 960
Other:
Number of approximated MODERATE 4 2
amounts of urine
Vital Signs
Temp Pulse Resp BP Pulse Ox
97.7 F 74 16 131/80 95
02/08/25 07:15 02/08/25 07:15 02/08/25 07:15 02/08/25 07:15 02/08/25 07:15
Lab Results
02/08/25 07:05
02/08/25 07:05
Calcium 7.2 mg/dl (8.4-10.2) L 02/08/25 07:05
Phosphorus 2.9 mg/dl (2.5-4.5) 02/08/25 07:05
Magnesium 2.3 mg/dl (1.6-2.3) 02/08/25 07:05
Total Bilirubin 0.9 mg/dl (0.2-1.3) 02/02/25 05:33
AST 20 U/L (14-36) 02/02/25 05:33
ALT 15 U/L (0-35) 02/02/25 05:33
Alkaline Phosphatase 40 U/L (38-126) 02/02/25 05:33
Total Protein 5.4 g/dl (6.3-8.2) L 02/02/25 05:33
Albumin 2.5 g/dl (3.5-5.0) L 02/02/25 05:33
Physical Exam
-
GENERAL/NEURO: Awake, Alert, no distress
CHEST: Unlabored breathing on RA
ABDOMEN: Soft, Non-Tender, Non-Distended.
Patient has a espana catheter: No
Patient has a central line: No
--- NOTE | 2025-02-08 10:49 | W.PN.HOSP.TC ---
Today's Communication/Plan
-
Full liquid diet.
Assessment / Plan
Assessment / Plan
Physical exam:
General: Acutely ill but no acute distress today. Nontoxic appearance
HEENT: Normocephalic, Atraumatic and Moist Mucous Membranes
Respiratory: Clear to auscultation bilaterally; Negative Wheezes, Rales or Rhonchi
Cardiac: Regular Rhythm and S1/S2
GI: Soft, non tender and mild distended
Skin: Macular rash in her chest, back, and abdomen. Rash much improved today.
Musculoskeletal: No Clubbing, No Cyanosis. Bilateral lower extremity edema improving today.
Neuro: Awake, Alert and Oriented, no neurological deficits
Psych: Calm, normal judgment and insight
A/P:
Sepsis due to Mesenteric ischemia, POA:
Improving
Advancing diet to full liquid diet today per surgery
Off IV fluids and antibiotics.
Seen and reviewed repeat CT scan of the abdomen from yesterday.
Vascular surgery did balloon angioplasty and stenting of SMA on 02/02
Continue DAPT and statins
Continue to monitor clinical course
Discussed with at bedside
PT OT
Volume overload with Bilateral pleural effusions:
Continue IV Lasix for today and stop and reevaluate.
Allergic reaction to Zosyn:
Continue IV dexamethasone for today and stop and reevaluate.
Off Zosyn
Hypokalemia:
Improved
Hypocalcemia:
Improved
Large left lower lobe consolidation:
Atelectasis related. No evidence of pneumonia.
Off antibiotics
Incentive spirometry
Large paraesophageal hernia and GERD:
Continue IV PPI
Hyponatremia:
Monitor trend
Hyperlipidemia:
Resumed statin
Hypothyroidism:
Resumed thyroid replacement
DVT prophylaxis:
SCDs
CODE STATUS:
Full code
Total time spent on today's encounter 36 minutes which included time spent in counseling the patient/family regarding diagnosis and treatment plan as listed above, goals of care, and symptom management. Case was discussed with nursing staff,
specialists, and care coordinators/case management. All labs and imaging personally reviewed by me. Remainder the time spent in detailed review of previous records, lab data, imaging, and other medical provider documentation.
Anticipated Discharge: > 48 hours
Subjective/Interval History
-
Date of Service: February 08, 2025
Patient feels better today. No abdominal pain overnight. No nausea or vomiting today. Less peripheral edema. Rash seems to be improving now. Tolerating liquid diet. Afebrile
Objective Data
-
Labs:
Laboratory Results
02/08/25
07:05
WBC 11.9 H
Hgb 10.5 L
Hct 32.5 L
Plt Count 413 H
Sodium 133 L
Potassium 4.2
Chloride 104
Carbon Dioxide 25
BUN 10
Creatinine 0.6
Glucose 68 L
Calcium 7.2 L
Vital Signs:
Vital Signs
Temp Pulse Resp BP Pulse Ox
97.7 F 74 16 131/80 95
02/08/25 07:15 02/08/25 07:15 02/08/25 07:15 02/08/25 07:15 02/08/25 07:15
I&O
02/07/25 02/08/25 02/09/25
06:59 06:59 06:59
Intake Total 1140 / 1140 960 / 960
Balance 1140 / 1140 960 / 960
--- NOTE | 2025-02-08 12:00 | PTOTSP ---
Speech Therapy Evaluation:
Pt with functional oropharyngeal swallow at bedside. She reported pill dysphagia, which has significantly improved with implementation of a chin tuck. No s/sx of aspiration or pharyngeal dysphagia with current diet level. Pt without
dysphagia/pneumonia hx, although risk for post prandial aspiration elevated given hx of large paraesophageal hernia.
Recommend:
1. Continue current diet level of full liquids as recommended per medical team
2. Medications as best tolerated
3. General aspiration and reflux precautions
4. PROJECT ENGINEER to s/o - please reconsult as indicated
[2025-02-08 15:10] VITALS: BP 103/47
[2025-02-08] MEDS: BENADRYL 25 MG IV (17:34)
[2025-02-08] MEDS: LIPITOR 20 MG PO (17:36)
[2025-02-08] MEDS: LASIX IV (17:53)
[2025-02-08 23:50] VITALS: BP 113/59
[2025-02-09] MEDS: SYNTHROID 75 MCG PO (05:41)
[2025-02-09 06:07] LABS: Hematocrit 32.3 % (37.0-47.0); Hemoglobin 11.0 g/dL (12.0-16.0); Mean Corp Hgb Conc. 34.1 g/dL (33.0-37.0); Mean Corpuscular Volume 90.2 fL (81.0-99.0); Platelet Count 330 10^3/uL (130-400); Red Cell Dist. Width 14.8 % (11.5-14.5)
[2025-02-09 06:23] LABS: Blood Urea Nitrogen 12 mg/dl (7-17); Calcium 8.0 mg/dl (8.4-10.2); Carbon Dioxide 27 mmol/L (22-30); Chloride 105 mmol/L (98-107); Glucose 90 mg/dl (70-99); Potassium 4.0 mmol/L (3.5-5.1); Sodium 134 mmol/L (135-145); eGFR > 60.00
[2025-02-09 07:40] VITALS: BP 137/68
--- NOTE | 2025-02-09 08:26 | W.PN.GS2 ---
Today's Communication / Plan
-
full liquids
Assessment / Plan
-
Patient is an 79 yo F p/w mesenteric ischemia POD#7 s/p balloon angioplasty and SMA stenting by Dr. Espana
CT scan from 02/07/2025 reviewed, overall improved still with residual enteritis.
AFVSS
Leukocytosis in setting of steroid use
h/h stable
Tolerating full liquid diet
Anticipate some sloughing of the intestinal lining/dark stools over the coming week
Plan:
Continue FLD with supplements for the next week
Out of bed and ambulate as able.
Treatment of her rash per hospitalist.
dispo planning as per primary team
Subjective Data
-
Date of Service: February 09, 2025
Pt seen and examined at bedside with Dr. Philip. Najera n/v. Tolerating full liquids without worsening pain. Passing flatus some dark and black stools. Occasional abdominal cramping but better.
Objective Data
-
Intake and Output
02/08/25 02/09/25 02/10/25
06:59 06:59 06:59
Intake Total 960 / 960 480 / 480
Balance 960 / 960 480 / 480
Intake:
Oral fluids 960 / 960 480 / 480
Other:
Number of approximated MODERATE 2
amounts of urine
Vital Signs
Temp Pulse Resp BP Pulse Ox
97.6 F 80 17 113/59 94
02/08/25 23:50 02/08/25 23:50 02/08/25 23:50 02/08/25 23:50 02/08/25 23:50
Lab Results
02/09/25 05:34
02/09/25 05:34
Calcium 8.0 mg/dl (8.4-10.2) L 02/09/25 05:34
Phosphorus 2.9 mg/dl (2.5-4.5) 02/08/25 07:05
Magnesium 2.3 mg/dl (1.6-2.3) 02/08/25 07:05
Total Bilirubin 0.9 mg/dl (0.2-1.3) 02/02/25 05:33
AST 20 U/L (14-36) 02/02/25 05:33
ALT 15 U/L (0-35) 02/02/25 05:33
Alkaline Phosphatase 40 U/L (38-126) 02/02/25 05:33
Total Protein 5.4 g/dl (6.3-8.2) L 02/02/25 05:33
Albumin 2.5 g/dl (3.5-5.0) L 02/02/25 05:33
Physical Exam
-
GENERAL/NEURO: Awake, Alert, no distress
CHEST: Unlabored breathing on RA
ABDOMEN: Soft, Non-Tender, Non-Distended.
Patient has a espana catheter: No
Patient has a central line: No
[2025-02-09] MEDS: PLAVIX 75 MG PO (09:00)
[2025-02-09] MEDS: LOW STRENGTH ASPIRIN 81 MG PO (09:00)
[2025-02-09] MEDS: NSS (PRESERVATIVE FREE) 10 ML IV (09:01)
[2025-02-09] MEDS: PROTONIX IV 40 MG IV (09:01)
--- NOTE | 2025-02-09 09:24 | W.PN.HOSP.TC ---
Today's Communication/Plan
-
possible DC later today or tomorrow
continue fulls
topical steroids, claritin for rash
Assessment / Plan
Assessment / Plan
A/P:
Mesenteric Ischemia
-s/p balloon angioplasty and setting of proximal superior mesenteric artery 02/02/25; no full thickness/acute ischemia that required surgery
-s/p IVF, diet advanced to fulls
-continue FLD at least another week
-Continue DAPT and statins
-possible DC home later today
Volume overload with Bilateral pleural effusions:
-s/p diuresis; appears euvolemic on exam today
Allergic reaction to Zosyn:
exanthematous drug eruption
-s/p steroids
-change topical steroids to clobetasol cream (stop topical antifungal); start oral Claritin and Pepcid
Hypokalemia:
Improved
Hypocalcemia:
Improved
Large left lower lobe consolidation:
Atelectasis related. No evidence of pneumonia.
Off antibiotics
Incentive spirometry
Large paraesophageal hernia and GERD:
Continue IV PPI
Hyponatremia:
Monitor trend
Hyperlipidemia:
Resumed statin
Hypothyroidism:
Resumed thyroid replacement
DVT prophylaxis:
SCDs
CODE STATUS:
Full code
Total time spent on today's encounter 36 minutes which included time spent in counseling the patient/family regarding diagnosis and treatment plan as listed above, goals of care, and symptom management. Case was discussed with nursing staff,
specialists, and care coordinators/case management. All labs and imaging personally reviewed by me. Remainder the time spent in detailed review of previous records, lab data, imaging, and other medical provider documentation.
Anticipated Discharge: Within 24 hours
Subjective/Interval History
-
Date of Service: February 09, 2025
some abdominal discomfort with eating but manageable
having mucus and bloody stools as expected
Objective Data
-
Labs:
Laboratory Results
02/09/25
05:34
WBC 12.5 H
Hgb 11.0 L
Hct 32.3 L
Plt Count 330 D
Sodium 134 L
Potassium 4.0
Chloride 105
Carbon Dioxide 27
BUN 12
Creatinine 0.7
Glucose 90
Calcium 8.0 L
Vital Signs:
Vital Signs
Temp Pulse Resp BP Pulse Ox
97.7 F 74 18 137/68 96
02/09/25 07:40 02/09/25 07:40 02/09/25 07:40 02/09/25 07:40 02/09/25 07:40
I&O
02/08/25 02/09/25 02/10/25
06:59 06:59 06:59
Intake Total 960 / 960 480 / 480
Balance 960 / 960 480 / 480
Review of Systems
-
History Source: Patient
All other systems: Reviewed and negative
Physical Exam
-
General: No Apparent Distress
HEENT: PERRLA
Respiratory: Clear to Auscultation; Negative Wheezes
Cardiac: Regular Rhythm and S1/S2
GI: Soft and Nontender
Musculoskeletal: No Edema
Skin: Warm, Dry and Rash (diffuse maculopapular rash along chest and back)
Neuro: AO x 3
Psych: Calm
Data Reviewed
-
Diagnostic Radiology: Report Reviewed by me
Labs: Labs Reviewed by me
[2025-02-09] MEDS: CLARITIN 10 MG PO (10:53)
[2025-02-09] MEDS: PEPCID 20 MG PO (10:54)
[2025-02-09] MEDS: CLOBETASOL PROPIONATE 0.05% CREAM 1 APPLIC TOPICAL (10:55)
--- NOTE | 2025-02-09 12:16 | W.DCSUMMARY ---
Discharge Summary
Discharge Data
Date of Admission: 02/01/25
Date of Discharge: 02/09/25
-
Pending Results: No
Hospital Course
Discharging Physician : Dr. Ivy Mcclendon
Disposition : Home with VN
Primary care physician : Dr. Howard Peoples
Principal Discharge diagnosis : Mesenteric Ischemia status post balloon angioplasty and stenting of proximal SMA 02/02/25
Hospital Course :
Ms. Aniyah Allen is a 79 yo woman with hx celiac artery/superior mesenteric artery origin stenosis, paraesophageal hernia, hypothyroidism, hyperlipidemia, chronic constipation, recent admission 01/23-01/30 for infectious/ischemic colitis
presents with right lower quadrant abdominal pain today that was severe and bloating after eating. She was found to have leukocytosis with WBC 21.5, normal renal function. Repeat CT demonstrated severe diffuse enteritis, with over 70% severe
stenosis in proximal SMA. Patient was admitted to medicine with GI, General Surgery and Vascular surgery consulting for suspected mesenteric ischemia. Patient underwent balloon angioplasty and stenting of proximal superior mesenteric artery on
02/02/25. Per GS evaluation, no role for surgical intervention without evidence of worsening ischemia that would necessitate resection. Her diet was slowly advanced and she is instructed to remain on a full liquid diet for another week then slowly
introduce a low residue diet.
Patient received IV Zosyn early in her hospital course. She then developed a drug rash on her chest and back. She is prescribed topical steroids, Claritin and Pepcid at discharge.
Patient will follow up closely with her PCP and Vascular surgery.
Time spent on discharge was 35 minutes.
Important imaging findings :
Abdomen/Pelvis CT 02/01/25
IMPRESSION:
1. SEVERE DIFFUSE ENTERITIS throughout both jejunal and ileal small bowel loops. Diagnostic possibilities are (1) acute small bowel ischemia, (2) a severe acute infectious enteritis, (3) severe inflammatory bowel disease, vasculitis, or connective
tissue disease, or (4) severe angioedema.
2. Small volume of abdominal and pelvic ascites.
3. 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
4. Large paraesophageal hiatal hernia.
5. Moderate diverticulosis in the sigmoid colon.
6. Cholelithiasis.
7. Small to moderate-sized right and small left pleural effusions.
8. Large left lower lobe airspace consolidation (pneumonia or atelectasis).
Abdomen/Pelvis CT 02/07/25
IMPRESSION:
Findings compatible with resolving SEVERE ENTERITIS in the interval since most recent prior study.
Small volume ascites, slightly decreased.
Patent proximal SMA stent.
Large left paraesophageal hernia again seen.
Bilateral pleural effusions and bilateral lower lobe consolidations again seen most likely representing atelectasis. Cannot exclude pneumonia.
Additional stable nonurgent findings, as detailed above.
02/02/25
Procedure:
1. Balloon angioplasty and stenting of proximal superior mesenteric artery (6 mm x 19 mm Bolton VBX)
2. Selective catheterization of superior mesenteric artery
3. Selective mesenteric arteriogram
4. Diagnostic aortogram
5. Ultrasound-guided percutaneous access to the right common femoral artery
Procedure findings :
Discharge Plan
-
Patient Disposition: Home with Home Care
Discharge Diagnosis/Procedures: Mesenteric Ischemia status post s/p balloon angioplasty and stenting of proximal superior mesenteric artery 02/02/25
Diet: Other diet
Additional Diets: Full liquid diet with protein shakes for one week then slowly add in low fiber solid foods
Activity: As tolerated
Driving Restrictions: As prior to admission
Bathing Restrictions: None
Others Tests: Ultrasound appt: 02/26 @10:30
Other Services: VN
Instructions: Full liquid diet, Low-fiber diet
Stand Alone Forms: Vascular Surg Discharge Instr
Referrals:
Howard Peoples MD [Family Provider, Internal Medicine] - in less than 1 week
Sushma Faust CRNP [Specified Professional Personl, Vascular Surgery] - 03/05/25 1:30 pm
Referral Note: Vascular surgery office follow up
Additional Discharge Medication Instructions: You are given a 60 day prescription for Aspirin and Plavix. These will be refilled by your outpatient providers (Aspirin can be bought over the counter).
Ok to stop Clobetasol Cream, Pepcid and Claritin after rash has resolved.
Prescriptions:
New
loratadine 10 mg Tablet
10 mg PO DAILY Qty: 14 0RF
clobetasol 0.05 % Cream
1 applic topical BID Qty: 30 1RF
aspirin 81 mg Tablet,Chewable
81 mg PO DAILY Qty: 60 0RF
clopidogrel 75 mg Tablet
75 mg PO DAILY Qty: 60 0RF
famotidine 20 mg Tablet
20 mg PO DAILY Qty: 30 0RF
Continued
atorvastatin 20 mg tablet
20 mg PO HS
levothyroxine [Synthroid] 75 mcg tablet
75 mcg PO DAILY
pantoprazole 40 mg tablet,delayed release (DR/EC)
40 mg PO DAILY
Discharge Orders:
Discharge Patient (As Directed); Ordered 02/09/25
Ordered By: Ivy Mcclendon
Discharge Date and Time
Print Language: SYRIAN
--- NOTE | 2025-02-09 13:31 | W.DS.TRANS ---
DC Summary - Occupational Work Experience [employer]
-
Discharge Instructions:
Discharge Diagnosis/Procedures Mesenteric Ischemia status post s/p balloon
angioplasty and stenting of proximal superior
mesenteric artery 02/02/25
Diet Other diet
Additional Diets Full liquid diet with protein shakes for one
week then slowly add in low fiber solid foods
Activity As tolerated
Driving Restrictions As prior to admission
Bathing Restrictions None
Others Tests Ultrasound appt: 02/26 @10:30
Other Services VN
Instructions: Full liquid diet
Low-fiber diet
Stand-Alone Forms: Vascular Surg Discharge Instr
Changes to Home Medications: Yes
Discharge Medications:
DC Medications w/original date entered in [facility]
atorvastatin 20 mg tablet 20 mg PO HS High Cholesterol 01/23/25
levothyroxine 75 mcg tablet (Synthroid) 75 mcg PO DAILY Thyroid 01/23/25
pantoprazole 40 mg tablet,delayed release 40 mg PO DAILY Gastrointestinal Issue 01/23/25
aspirin 81 mg chewable tablet 81 mg PO DAILY #60 tabs 02/09/25
clobetasol 0.05 % topical cream 1 applic topical BID #30 grams 02/09/25
clopidogrel 75 mg tablet 75 mg PO DAILY #60 tabs 02/09/25
famotidine 20 mg tablet 20 mg PO DAILY #30 tabs 02/09/25
loratadine 10 mg tablet 10 mg PO DAILY #14 tabs 02/09/25
Home Medication Changes
addition of Aspirin Plavix
Addition of Clobetasol, Pepcid and Claritin for drug rash
Pending Results: No
--- NOTE | 2025-02-09 14:00 | CM ---
Patient seen at bedside on . IMM completed and plan for discharge home with family to transport. [facility] to follow. CM will continue to follow for discharge planning needs.
Plan; home with [facility]
[2025-02-09 14:31] VITALS: BP 106/64
[2025-02-09 14:32] VITALS: BP 106/64
== END 2025-02-09 15:17 | disposition home health service (06) | DRG 853 ==
LOC: 2 SOUTH 23:17
PROVIDERS: Hospitalist; Registered Nurse; ADMITTING PHYSICIAN Hospitalist; ATTENDING PHYSICIAN Student in an Organized Health Care Education/Training Program; CONSULT PHYSICIAN Internal Medicine; CONSULT PHYSICIAN Surgery; CONSULT PHYSICIAN Surgery Vascular Surgery; EMERGENCY PHYSICIAN Emergency Medicine; FAMILY PHYSICIAN Internal Medicine
PROC: 04753DZ Dilation of Superior Mesenteric Artery with Intraluminal Device, Percutaneous Approach (ICD-10-PCS; 2025-02-02)
PROC: 04H Lower Arteries, Insertion (ICD-10-PCS; 2025-02-02)
PROC: B4141ZZ Fluoroscopy of Superior Mesenteric Artery using Low Osmolar Contrast (ICD-10-PCS; 2025-02-02)
DX: A41.9 Sepsis, unspecified organism (principal); K55.059 Acute (reversible) ischemia of intestine, part and extent unspecified; E87.1 Hypo-osmolality and hyponatremia; J90 Pleural effusion, not elsewhere classified; R18.8 Other ascites; J98.11 Atelectasis; E87.6 Hypokalemia; E03.9 Hypothyroidism, unspecified; K44.9 Diaphragmatic hernia without obstruction or gangrene; K59.09 Other constipation; Z87.891 Personal history of nicotine dependence; L27.0 Generalized skin eruption due to drugs and medicaments taken internally; K80.20 Calculus of gallbladder without cholecystitis without obstruction; I77.1 Stricture of artery; Z79.899 Other long term (current) drug therapy
CPT/HCPCS: 36245; 37236; 74177; 75726; 80048; 80053; 83605; 83690; 83735; 84100; 85014; 85018; 85025; 85027; 92610; 93005; 97116; 97162; 97167; 99285; C1769; C1874; C1887; C1894; Q9967

== ENCOUNTER → 2025-02-26 10:36 | Outpatient (REF) | payer OTHER, SELFPAY | LOC: RAD 10:36 | PROVIDERS: ATTENDING PHYSICIAN Surgery Vascular Surgery; FAMILY PHYSICIAN Internal Medicine | DX: K55.1 Chronic vascular disorders of intestine (principal) | CPT/HCPCS: 93975 ==